=== PATIENT | female | born 1985 | race Caucasian/White ===

== ENCOUNTER 2021-05-21 18:59 | Emergency (ER) | payer OTHER, SELFPAY ==
--- NOTE | ~2021-05-21 | XR_ITS ---
EXAMINATION: XR foot RT 2V EXAM DATE: 05/21/2021 20:53 INDICATION: Pain X 3 Weeks, Fall On Ice, Swelling/Bruising To Lat Side. TECHNIQUE: Right foot dorsoplantar, lateral and oblique projections obtained and reviewed. There is no prior study for comparison. FINDINGS: Right metatarsal bones unremarkable. Small inferior calcaneal spur. There are no acute fr actures or dislocations identified. There is no subcutaneous gas. The soft tissue is unremarkable. There are no radiopaque foreign bodies. IMPRESSION: No acute osseous findings. Reviewed, dictated and finalized at location . [facility] ADMINISTRATOR IMPRESSION: No acute osseous findings.
[2021-05-21 19:03] VITALS: BP 207/108; PULSE 76; RESP 18; TEMP 36.1; O2SAT 100
[2021-05-21 20:18] VITALS: BP 194/112; PULSE 84; RESP 16; O2SAT 97
--- NOTE | 2021-05-21 20:37 | ED.LOWEXIN ---
HPI - Extremity Injury (Lower) General Chief Complaint: Extremity Injury, Lower Stated Complaint: right foot Time Seen by Provider: 05/21/21 20:15 History of Present Illness HPI Narrative: Patient presents to the emergency room with complaints of right heel pain for 3 weeks. Patient states that she slipped on the ice and has had pain since. Pain is worse with ambulation. Has noticed some swelling to the medial side of the heel. States is taken [id number] Tylenol and ibuprofen with little improvement in pain. Related Data Home Medications Medication Instructions Recorded Confirmed metoprolol succinate 12.5 mg PO DAILY 05/21/21 Allergies Allergy/AdvReac Type Severity Reaction Status Date / Time grape Allergy Intermediate swelling Verified 05/21/21 20:16 Review of Systems Review of Systems: CONSTITUTIONAL: Denies fever, chills, or sweats. EYES: Denies visual changes, redness, or discharge. ENT: Denies rhinorrhea, congestion, sore throat, or otalgia. CARDIOVASCULAR: Denies chest pain, palpitations, or edema. RESPIRATORY: Denies cough or dyspnea. GASTROINTESTINAL: Denies abdominal pain, nausea, vomiting, or diarrhea. GENITOURINARY: Denies dysuria or hematuria. SKIN: Denies rash or itching. MUSCULOSKELETAL: Denies back pain, joint pain, or myalgia. Right foot pain per HPI NEUROLOGIC: Denies headache, numbness, dizziness, or weakness. PSYCHIATRIC: Denies anxiety or depression. [facility] Past Medical History Medical History (Updated 05/21/21 @ 21:24 by Aaron Lantigua, ADRIA) Hypertension Exam Narrative: GENERAL: Well-appearing, well-nourished, and in no acute distress. HEAD: Normocephalic, atraumatic. EYES: PERRLA and EOMI. ENT: Nares clear, no rhinorrhea or epistaxis. Mucous membranes moist. Oropharynx without tonsillar hypertrophy exudate or other lesions. Bilateral TMs pearly dominguez nonbulging NECK: Supple. No adenopathy or masses. No carotid bruits or JVD CHEST: Clear to auscultation. No respiratory distress. No wheezes rales or rhonchi HEART: Regular rate and rhythm. No murmur heard. Normal peripheral pulses. ABDOMEN: Soft, nontender, nondistended, normal active bowel sounds. EXTREMITIES: Normal range of motion. No edema. Right foot: +TTP with STS to medial surface of anterior heel over the proximal plantar fascia; No bony abnormality SKIN: Warm, dry, no rash. NEURO: No focal deficits. Alert and oriented x3. PSYCH: Normal mood and affect. Course Course Emergency Course: 36-year-old female presented the emergency room with complaints of right heel pain for 3 to 4 weeks status post fall patient states pain has not been improving with [id number] medications. Patient has been hypertensive for ER stay. Plain films of the right ankle right heel demonstrated no acute findings. Vital Signs Vital signs: Vital Signs Temperature 36.1 C L 05/21/21 19:03 Pulse Rate 76 05/21/21 19:03 Respiratory Rate 18 05/21/21 19:03 Blood Pressure 207/108 H 05/21/21 19:03 Pulse Oximetry 100 05/21/21 19:03 Temperature 36.1 C L 05/21/21 19:03 Pulse Rate 84 05/21/21 20:18 Respiratory Rate 16 05/21/21 20:18 Blood Pressure 194/112 H 05/21/21 20:18 Pulse Oximetry 97 05/21/21 20:18 MDM - Extremity Injury (Lower) MDM Narrative Medical decision making narrative: Given patient has tenderness and soft tissue swelling to the medial surface of the right heel for 3 to 4 weeks status post injury will discharge patient with posterior tibial tendinitis. Recommend patient use an Chevy bandage and/or walking boot. Will send patient home with prescription for anti-inflammatories. Patient is demonstrated multiple high blood pressure readings during her ER stay. Given 0.1 of clonidine. Discussed with patient is to follow-up with PCP next week due to her high blood pressure. Discharge Plan Discharge Clinical Impression: Right tibialis tendonitis Hypertension Qualifiers: Hypertension type: primary hyp
[2021-05-21] MEDS: cloNIDine HCL 0.1 MG TABLET PO (21:20)
== END 2021-05-21 21:57 | disposition home or self-care (01) ==
PROVIDERS: Emergency Provider Nurse Practitioner Family; PCP Family Medicine
DX: M76.821 Posterior tibial tendinitis, right leg (principal); I10 Essential (primary) hypertension; W00.0XXA Fall on same level due to ice and snow, initial encounter
CPT/HCPCS: 73620; 99283; A9270

== ENCOUNTER 2023-10-21 22:06 | Emergency (ER) | payer OTHER, SELFPAY ==
[2023-10-21 22:10] VITALS: BP 163/106; PULSE 82; RESP 18; TEMP 36.9; O2SAT 100
[2023-10-22] MEDS: AMOXICILLIN/CLAVULANATE K 875-125 MG TAB 1 TABLET PO (00:14)
[2023-10-22] MEDS: HYDROcodone/acetaminophen (*CRX) 5-325 MG TABLET 2 TAB PO (00:14)
--- NOTE | 2023-10-22 00:31 | ED.GENADULT ---
HPI - General Adult General Chief complaint: Dental/Oral Stated complaint: abcess tooth Time Seen by Provider: 10/21/23 23:59 History of Present Illness HPI narrative: This is a 38-year-old female presenting for dental pain. Patient has a large cavity in the bottom right molars. She has now developed some swelling in her jaw. Patient has made appointment to see dentist was not for 3 weeks. Related Data Home Medications Medication Instructions Recorded Confirmed metoprolol succinate 25 mg 12.5 mg PO DAILY 05/21/21 tablet,extended release 24 hr Allergies Allergy/AdvReac Type Severity Reaction Status Date / Time grape Allergy Intermediate swelling Verified 10/21/23 22:12 [facility] Past Medical History Medical History Hypertension Exam Narrative: APPEARANCE: No apparent distress. Head: Patient has a cracked tooth in the bottom right molar. Small area of fluctuance at the base of the tooth. EYES: EOMI, NOSE: Atraumatic NECK: Trachea midline RESPIRATORY: No increased rate of breathing CARDIOVASCULAR: RRR, ABDOMINAL: Non-distended MUSCULOSKELETAl: No obvious deformities NEURO: Alert. Moving 4/4 extremities SKIN:: Warm, dry. Normal color PSYCHIATRIC: Normal affect Course Vital Signs Vital signs: Vital Signs Temperature 98.4 F 10/21/23 22:10 Pulse Rate 82 10/21/23 22:10 Respiratory Rate 18 10/21/23 22:10 Blood Pressure 163/106 H 10/21/23 22:10 Pulse Oximetry 100 10/21/23 22:10 Oxygen Delivery Room Air 10/21/23 22:10 Temperature 98.4 F 10/21/23 22:10 Pulse Rate 82 10/21/23 22:10 Respiratory Rate 18 10/21/23 22:10 Blood Pressure 163/106 H 10/21/23 22:10 Pulse Oximetry 100 10/21/23 22:10 Oxygen Delivery Room Air 10/21/23 22:10 Medical Decision Making [facility] Narrative Medical decision making narrative: -Course: 38-year-old female presenting with dental pain. Possibly a small abscess at the base of her bottom right molar. A incision drainage was performed without significant purulence. Patient discharged on antibiotics and given dental follow-up. Given return precautions -DDX includes but is not limited to: Toothache, periapical abscess -Procedures: inferior alveolar nerve block performed with 3 cc of .25% bupivacaine, incision and drainage of a right sided inés-apical abscess The abscess was drained by an 11 blade stab incision. 1 cc blood expressed -Interventions: Augmentin, Jet 5 mg x 2 -Shared decision making / Disposition: Discharge -RX Augmentin, Motrin, Tylenol Vital Signs Vital Signs: Vital Signs Temperature 98.4 F 10/21/23 22:10 Pulse Rate 82 10/21/23 22:10 Respiratory Rate 18 10/21/23 22:10 Blood Pressure 163/106 H 10/21/23 22:10 Pulse Oximetry 100 10/21/23 22:10 Oxygen Delivery Room Air 10/21/23 22:10 Temperature 98.4 F 10/21/23 22:10 Pulse Rate 82 10/21/23 22:10 Respiratory Rate 18 10/21/23 22:10 Blood Pressure 163/106 H 10/21/23 22:10 Pulse Oximetry 100 10/21/23 22:10 Oxygen Delivery Room Air 10/21/23 22:10 Discharge Plan Discharge Clinical Impression: Dental abscess Patient Disposition: Home, Self-Care Condition: Stable Instructions: Antibiotic Form, Dental Abscess (ED) Additional Instructions: Please take the antibiotics as instructed. Use Motrin Tylenol for pain control. Please follow-up with a dentist as soon as possible. If you feel that the abscess is growing or you develop shortness of breath or difficulty swallowing secretions please report to a hospital immediately. Prescriptions: New ibuprofen 800 mg tablet 800 mg PO TID PRN (Reason: pain) 7 Days Qty: 21 0RF acetaminophen 500 mg tablet 1,000 mg PO TID PRN (Reason: bridget) 7 Days Qty: 42 0RF amoxicillin-pot clavulanate 875-125 mg tablet 1 tablet PO Q12H Qty: 20 0RF No Action metoprolol succinate 25 mg Tablet Extended Release 2
[2023-10-22] MEDS: BUPivacaine HCL 0.25% PF 30 ML VIAL INFILTRATE (00:33)
--- NOTE | 2023-10-22 00:34 | PC.NURSE ---
erp zych at bedside to drain abscess. pt tolerated well, no distress noted.
[2023-10-22 00:48] VITALS: BP 114/74; PULSE 72; RESP 17; O2SAT 96
== END 2023-10-22 00:52 | disposition home or self-care (01) ==
PROVIDERS: Emergency Provider Emergency Medicine
DX: K04.7 Periapical abscess without sinus (principal); I10 Essential (primary) hypertension; Z79.899 Other long term (current) drug therapy
CPT/HCPCS: 41800; 99283; A9270

== ENCOUNTER 2025-01-30 10:43 | Emergency (ER) | payer OTHER, SELFPAY ==
--- NOTE | ~2025-01-30 | US_ITS ---
EXAM: US OB <=14 wk fetus w TV 01/30/2025 14:06 CDT HISTORY: with abdominal pain. Low beta hCG of [address] and previous LMP from September COMPARISON: None GENERAL: The endometrium is mildly thickened with a maximum dimension of 15 mm. There is a mass in the posterior uterus with maximum dimension of 12 mm which is likely a fibroid. There is an anterior mass with a maximum dimension of 11 mm which is likely an additional fibroid. There is minimal fluid in the endometrial cavity. There is a tiny fluid collection in the endometrium. It has a maximum dimension of 4 mm. The IUD is seen in the cervix, but not in the endometrial cavity of the uterus. MATERNAL PELVIS Right ovary: There is a large simple cyst with a maximum dimension of 5.7 cm. Left ovary: Normal. Cul-de-sac: No free fluid. IMPRESSION: 1. The IUD has been displaced. 2. There is a tiny fluid collection in the endometrial cavity with thick mild thickening of the endometrium. This representing an early gestational sac cannot be excluded. Follow-up with serial beta-hCGs and pelvic ultrasound if necessary. 3. Sizable ovarian cyst on the right as described. Reviewed, dictated and finalized at location A. IMPRESSION: 1. The IUD has been displaced. 2. There is a tiny fluid collection in the endometrial cavity with thick mild t hickening of the endometrium. This representing an early gestational sac cannot be excluded. Follow-up with serial beta-hCGs and pelvic ultrasound if necessar y. 3. Sizable ovarian cyst on the right as described.
[2025-01-30 10:53] VITALS: BP 150/97; PULSE 105; RESP 18; TEMP 36.6; O2SAT 99
--- OUTSIDE RECORDS SUMMARY | 2025-01-30 11:48 | XMS_ITS | Data Portability ---
Author Organization [facility] Address [address] [place] [address] Assessment Encounter Date Assessment Date Assessment LastModified by Organization Details LastModified Time 03/29/2023 03/29/2023 Annual gynecological exam performed. Patient will come back in a year unless there are new symptoms. Not available 03/29/2023 16:23:40 Plan of Treatment Reminders Order Date Submit Date Provider Last Modified By Organization Details Last Modified Time Details Appointments None recorded. Lab None recorded. Referral primary care provider referral 2022 023 [email or web address] Mesha Bauer DATA SCIENCE [employer]OT MANAGER, [address] [facility] , [address], [address], 13:58:00 Procedures None recorded. Surgeries None recorded. Imaging None recorded. Medication Orders None recorded. Patient TargetsNo targets recorded. Patient InstructionsNo instructions recorded. Reason for Referral Primary Care Provider Referr al for Hypertensive disorder Referring Physician: Meli Penny, COOK SHORT ORDER, Encounter Date: 03/29/2023 Results Created Date Observation Date Name Description Value Unit Range Abnormal Flag Note LastModifiedBy Organization Detail LastModifiedTime 03/29/2003/29/2023 IMAGE GUIDE D PAP AND HPV REGAR DLESS image guided Pap, HPV regardless of Pap result SEE RESULT S BELOW CASE REPOR T: Cytol ogy Gynec ologi conrado Repor t Case: [id number] Autho an inman Provi nathalie: Gio Fernandez Colle cted: 03/29 1707 DATA SCIENCE AND IOT MANAGER Order ing Locat ion: [place] Patho log[facility] Recei zara: 03/30 0952 First Scree n: Patti Triplett ret, CT Rescr een: Meggan moralez, Netta zamarripa, CT Speci men: Scree sampson Pap - Image d, Cervi x STATE MENT OF ADEQU ACY: Satis facto ry for evalu ation Trans forma tion zone compo nent prese nt FINAL DIAGN OSIS: Negat solis for Intra epith elial Lesio n or Migel ramirez (NIL) . Elect enedina taylor asif d by Meggan moralez, Netta zamarripa, CT on 03/31 at 8:58 PM ----- ----- ----- ----- ----- ----- ----- ----- ----- ----- ----- ----- ----- ----- ----- ----- ----- ---- HPV RESUL TS: HPV mRNA E6/E7 : No HPV mRNA Detec iron NOTE: This high risk HPV mRNA assay detec ts fourt een high- risk HPV types (16, 18, 31, 33, 35, 39, 45, 51, 52, 56, 58, 59, 66, 68) witho ut diffe renti ation . COMME NT: This speci men was revie wed by a Cytot echno logis t and/o r Patho logis t (as indic ated in this repor t) after evalu ation using the Thinp rep Imagi ng Syste m. CLINI CONRADO INFOR MATIO N: Menst rual Statu s: LMP (if appli cable ): Clini conrado Histo ry/Pr eviou s Pap: Type of Neopl sanchez (if appli cable ): Signi fican t Clini conrado Findi ngs: Other Histo ry: Hormo em (if appli cable ): PAP EDUCA MOHAMUD L NOTE: The Pap Test is a scree sampson test with an inher ent false negat solis rate. Liqui d-bas ed sampl ing may decre ase, but will not elimi gricelda, false negat solis resul ts. A negat solis resul t does not precl ude the prese nce and/o r devel opmen t of disea se, since the prese nce of abnor mal cells in the sampl e depen ds on the locat ion of the lesio n and sampl ing techn ique. [place] nued regul ar scree sampson is the best metho d of cance r preve ntion . If repor iron cytol ogic findi ng do not corre late with physi conrado and/o r histo rical findi ngs, furth er inves tigat ion is recom chayito d, as clini radha petersen nted. Not Available [facility] (Lab) [address], [place], [address], 03/31/2023 22:01:42 03/29/20 23 03/29/2023 TRICH OMONA S VAGIN BENNY (RRNA ) trichomonas vaginalis ribosomal RNA (rrna) Negati ve negati ve Not Available [facility] (Lab) [address], [place], [address], 03/31/2023 22:01:43 03/29/20 23 03/29/2023 CT/GC (ERIC) , THINP REP VIAL chlamydia trachomatis, PCR Negati ve negati ve Not Available [facility] (Lab) [address] [place], [address], 03/31/2023 22:01:43 03/29/20 23 03/29/2023 CT/GC (ERIC) , THINP REP VIAL neisseria gonorrhoeae, PCR Negati ve negati ve Not Available [facility] (Lab) [address] [place], [address], 03/31/2023 22:01:43 Result Notes None recorded. Procedures Surgical History Date Name Laterality Status Provider Name and Address Organization Details Recorded Time Laparoscopy completed Lisa Murcia [facility] 03/29/2023 16:24:24 Imaging Results None recorded. Procedure Notes None recorded. Medical Equipment None Reported. Allergies No known drug allergies Medications Name Sig Start Date Stop Date Status Note LastModified by Organization Details LastModified Time lisinopril 10 mg tablet TAKE 1 TABLET BY MOUTH EVERY DAY DIRECTED active Not Available Not Available No t Available metoprolol succinate ER 25 mg tablet,exten ded release 24 hr TAKE 1 TABLET BY MOUTH EVERY DAY active Not Available Not Available No t Available Vitals Date Recorded Body weight Body mass index (BMI) Body height Systolic And Diastolic Provider Name and Address Organization Details Last Updated DateTime 03/29/2023 320079.86 g 48.1 kg/m2 162.56 cm 164/110 mm[Hg] Lisa Navarro [facility] 03/29/2023 16:29:24 Social History Question Answer Notes LastModified by Organizat ion Details LastModified Time Tobacco Smoking Status Never Smoker Lisawatson Navarro [facility] 03/29/2023 16:26:22 Are You Blind Or Do You Have Difficulty Seeing? No Information n ot available 03/29/2023 What Is Your Level Of Caffeine Consumption? Heavy Information not available 03/29/2023 How Much Tobacco Do You Chew? None Information not available 03/29/2023 In The 14 Days Before Symptom Onset, Have You Had Close Contact With A Laboratory-confirm ed COVID-19 While That Case Was Ill? No Information n ot available 03/29/2023 In The 14 Days Before Symptom Onset, Have You Had Close Contact With A Person Who Is Under Investigation For COVID-19 While That Person Was Ill? No Information not available 03/29/2023 Have You Been To An Area Known To Be High Risk For COVID-19? No Information not available 03/29/2023 Are You Deaf Or Do You Have Serious Difficulty Hearing? No Information not available 03/29/2023 What Is The Highest Grade Or Level Of School You Have Completed Or The Highest Degree You Have Received? [id number] Information not available 03/29/2023 Are There Any Guns Present In Your Home? No Information not available 03/29/2023 Do You Use Protection During Sex? No Information not available 03/29/2023 Do You Use Your Seat Belt Or Car Seat Routinely? Yes Information not available 03/29/2023 Do You Have Smoke And Carbon Monoxide Detectors In Your Home? Yes Information not available 03/29/2023 How Much Tobacco Do You Smoke? No Information not available 03/29/2023 Do You Use Sunscreen Routinely? No Information not available 03/29/2023 Have You Used IV Drugs? No Information not available 03/29/2023 Do You Have Difficulty Walking Or Climbing Stairs? No Information not available 03/29/2023 Sex: Unknown Functional Status Question Answer Note LastModified by Organizat ion Details LastModified Time Do you use any illicit or recreational drugs? No Information not available 03/29/2023 What is your level of alcohol consumption? Occasional Information not available 03/29/2023 Are you able to walk independently without assistance or assistive devices? YESWOREST Information not available 03/29/2023 Are you able to care for yourself independently? 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 No Information not available 03/29/2023 What is your exercise level? Occasional Information not available 03/29/2023 Mental Status Question Answer Note LastModified by Organization D etails LastModified Time Do you feel stressed (tense, restless, nervous, or anxious, or unable to sleep at night)? [id number] Information not available 03/29/2023 Family History Relationship Description Onset Age of this Age Resolved Age Notes LastModified by Organization Details LastModified Time Mother Asthma Not available 16:24:11 Daughter Asthma Not available 03/29/2023 16:24:11 Father Asthma Not available 16:24:11 Father Heart disease Not available 2022 16:24:11 Medical History Condition Response Headaches Y Hypertension Y Gynecological History Statement/Question Response Abnormal Pap N Flow Moderate Date of LMP 03/15/2023 On BCP's at Conception? N N Was last menstrual period normal Y STIs/STDs N HPV Vaccine Y Duration of Flow (days) 3 Current Control Method IUD Age at First Child 18 Date of control 03/12/2016 Sexually Active? Y IUD Menses Monthly N Age of first menstrual cycle 14 Date of Last Pap Smear Sexual Problems? N Desired Control Method IUD LMP Definite N Obstetrics History GPAL:G 4 P 2 2 0 4 Type Value Full Term 2 Premature 2 Living 4 Total 4 Past Encounters Encounter ID Performer Location Encounter Start Date Encounter Closed Date Diagnosis/Indication Diagnosis SNOMED-CT Code Diagnosis ICD10 Code Diagnosis IMO Codes Diagnosis Note [id number] Meli Penny , [facility] [address] [address] 03/29/2023 16:20:41 03/29/2023 16:57:18 Gynecologic examination 77099773 Z01.419 Take Calcium with Vitamin D 1200mg daily if not receiving in daily diet. It is strongly advised to have an annual flu shot and up can obtain at most pharmacies . If you have not had a TDap shot in the last 10 years you should obtain one as well. Discussed with patient & provided with informatio n regarding Gardisil vaccine to prevent the 4 strains for HPV that cause cervical cancer if under age 26. Encourage safe sexual practices, to use condoms and limit partners if not already in a monogamous relationsh ip. Do monthly self breast exams. Have mammogram yearly or every other year depending on family history. BRCA testing is now available for patients with strong genetic history of female cancer. If interested contact the office. Engage in daily exercise of low impact aerobic exercise 45-60 minutes 4-5 times weekly. Avoid tobacco and illicit drugs as well as using moderation with alcohol intake less than 1-2 8 oz beverages daily. This lifestyle behavior pattern will lead to less health conditions and longer life span. If BMI greater than 25 weight watchers or dietary consult advised. Patient received above instructio ns, and questions have been answered. If you have any questions please call or respond to this email. Patient was made aware of the patient portal and may obtain a paper copy of today's plan if desired. Pap/hpv sentSTD Screen sentGeneti c Screen discussedC olon Screen naDexa Screen naRoutine Labs PCP will order Hypertensive disorder 38 [id number] I10 ED precaution s reviewed.C ontinue taking BP medication s until get into see PCP.Two options given that take her insurance. Risks of HTN and organ perfusion/ failure acute/research chemist cass.Unders tanding verbalized .Agreeable to plan of care. Contracept ion care management [id number] Z30.9 Mirena IUD expires middle of April 2023.Appoi ntment made to removal/re insertion same day. Health Concerns Section Related Observation LastModified by Organization Detai ls LastModified Time None Recorded Concern Status LastModified by Organization Details LastModified Time None Recorded Advance Directives Directive None Recorded Payers Insurance Date Sequence Insurance Name Policy Number Policy David Covered Member ID David Member ID Guarantor Name 04/03/2023 1 [employer] [facility] (MEDICAID HMO) [id number] Erinn Miramontes [id number] Erinn Miramontes 03/15/2023 1 [facility] - DOS ON OR AFTER 20 (MEDICAID REPLACEMENT - HMO) Erinn Miramontes [id number] Erinn Miramontes Notes Date Note Type Note Provider Name and Address Organization Details Recorded Time 3 text/html Annual GYNReported by PatientGenitourinary symptomsFor menstrual cycle, patient reportsnormal menses (light on iud mirena). For urinary symptoms, patient reportsno hematuriaandno incontinence. For vulva, patient reportsno genital lesion. For vagina, patient reportsnormal vaginal discharge.Breast symptomsFor breast, patient reportsno breast pain,no breast lump, andno nipple discharge.ContraceptionFo r current contraception, patient reportssatisfied with current contraceptionandintrauter ine device (iud).Endocrine symptomsFor sexual complaints, patient reportsno sexual complaints,no pain during intercourse, andnormal libido. For menopausal symptoms, patient reportsno menopausal symptomsandnormal vaginal lubrication.Psychological symptomsFor psychological symptoms, patient reportsno depression,no anxiety, andno pmdd.Preventative measuresFor preventive measures, patient reportsencourage self breast examination,encourage regular exercise,encourage no tobacco use,encourage regular mammograms starting age 40, andfollowed with yearly pap smears. Meli Penny, [facility] [address], [place], [address], [facility] 03/29/2023 16:54:56 OBGyn Episode Ob Episode Information Episode Created Date Number of Fetuses Patient Bloodtype Patient rh Status Prepregnancy Weight lbs Domestic Partner Domestic Partner Phone Father Name Jewel Bearing Broacher Status 03/29/20 23 1 CLOSED Fetus Data First Name Last Name Admitted to NICU Weight (g) Sex Living Outcome Pediatric Complications Fetus ID Race Codes Race Delivery Type 3883.65 [id number] F Full Term [id number] Vaginal Delivery Yaw Calculation Initial Yaw Date Initial Exam Date Initial Exam Provider Initial Ultrasound Date Last Menstrual Period Date Ultra Sound Weeks Gestation 0 Eighteen To Twenty Week Yaw Update Ultra Sound Date Fundal Height At Umbil Quickening Date Ultra Sound Latest Weeks Gestation Final Yaw Confirmed By Final Yaw Confirmed Date Final Yaw Date Ultra Sound Latest Days Gestation 0 0 Menstrual History Last Menstrual Date Menses Monthly On Bcp Conception Prior Menses Frequency Hcg Plus Date Menarche Onset Age Delivery Information Delivery Date Delivery Type Labor Anesthesia Weeks Gestation Incision Type Labor Labor Length Hrs Delivered By Post Complications Tubal Sterilization Discharge Date Comments 5 Discharge Information Feeding Method Contraceptive Method Maternal HG B and HCT Levels Ob Episode Information Episode Created Date Number of Fetuses Patient Bloodtype Patient rh Status Prepregnancy Weight lbs Domestic Partner Domestic Partner Phone Father Name Jewel Bearing Broacher Status 03/29/20 23 1 CLOSED Fetus Data First Name Last Name Admitted to NICU Weight (g) Sex Living Outcome Pediatric Complications Fetus ID Race Codes Race Delivery Type 2494.75 6 F Prematur e [id number] Vaginal Delivery Yaw Calculation Initial Yaw Date Initial Exam Date Initial Exam Provider Initial Ultrasound Date Last Menstrual Period Date Ultra Sound Weeks Gestation 0 Eighteen To Twenty Week Ywa Update Ultra Sound Date Fundal Height At Umbil Quickening Date Ultra Sound Latest Weeks Gestation Final Yaw Confirmed By Final Yaw Confirmed Date Final Yaw Date Ultra Sound Latest Days Gestation 0 0 Menstrual History Last Menstrual Date Menses Monthly On Bcp Conception Prior Menses Frequency Hcg Plus Date Menarche Onset Age Delivery Information Delivery Date Delivery Type Labor Anesthesia Weeks Gestation Incision Type Labor Labor Length Hrs Delivered By Post Complications Tubal Sterilization Discharge Date Comments 8 34 Discharge Information Feeding Method Contraceptive Method Maternal HG B and HCT Levels Ob Episode Information Episode Created Date Number of Fetuses Patient Bloodtype Patient rh Status Prepregnancy Weight lbs Domestic Partner Domestic Partner Phone Father Name Jewel Bearing Broacher Status 03/29/20 23 1 CLOSED Fetus Data First Name Last Name Admitted to NICU Weight (g) Sex Living Outcome Pediatric Complications Fetus ID Race Codes Race Delivery Type 2352.78 1704 [place] [id number] Vaginal Delivery Yaw Calculation Initial Yaw Date Initial Exam Date Initial Exam Provider Initial Ultrasound Date Last Menstrual Period Date Ultra Sound Weeks Gestation 0 Eighteen To Twenty Week Yaw Update Ultra Sound Date Fundal Height At Umbil Quickening Date Ultra Sound Latest Weeks Gestation Final Yaw Confirmed By Final Yaw Confirmed Date Final Yaw Date Ultra Sound Latest Days Gestation 0 0 Menstrual History Last Menstrual Date Menses Monthly On Bcp Conception Prior Menses Frequency Hcg Plus Date Menarche Onset Age Delivery Information Delivery Date Delivery Type Labor Anesthesia Weeks Gestation Incision Type Labor Labor Length Hrs Delivered By Post Complications Tubal Sterilization Discharge Date Comments 7 35 Discharge Information Feeding Method Contraceptive Method Maternal HG B and HCT Levels Ob Episode Information Episode Created Date Number of Fetuses Patient Bloodtype Patient rh Status Prepregnancy Weight lbs Domestic Partner Domestic Partner Phone Father Name Jewel Bearing Broacher Status 03/29/20 23 1 CLOSED Fetus Data First Name Last Name Admitted to NICU Weight (g) Sex Living Outcome Pediatric Complications Fetus ID Race Codes Race Delivery Type 3628.73 6 M Full Term [id number] Vaginal Delivery Yaw Calculation Initial Yaw Date Initial Exam Date Initial Exam Provider Initial Ultrasound Date Last Menstrual Period Date Ultra Sound Weeks Gestation 0 Eighteen To Twenty Week Yaw Update Ultra Sound Date Fundal Height At Umbil Quickening Date Ultra Sound Latest Weeks Gestation Final Yaw Confirmed By Final Yaw Confirmed Date Final Yaw Date Ultra Sound Latest Days Gestation 0 0 Menstrual History Last Menstrual Date Menses Monthly On Bcp Conception Prior Menses Frequency Hcg Plus Date Menarche Onset Age Delivery Information Delivery Date Delivery Type Labor Anesthesia Weeks Gestation Incision Type Labor Labor Length Hrs Delivered By Post Complications Tubal Sterilization Discharge Date Comments 4 Discharge Information Feeding Method Contraceptive Method Maternal HG B and HCT Levels
--- OUTSIDE RECORDS SUMMARY | 2025-01-30 11:49 | XMS_ITS | Data Portability ---
Author Organization [place] - [facility], Main Office Address [address] [place] [address] Care Team Providers Care Mangle Press Catcher Name Role Phone IVANA DREAD Primary Care Provider Assessment Encounter Date Assessment Date Assessment LastModified by Organization Details LastModified Time 08/14/2024 08/14/2024 39 yo F with - HTN - VIT D DEFICIENCY - OSMIN (on Cpap) - OBESITY II Annual labs: 08/06/24. Wt: 226(08/14/24) D/w pt about her findings, recent labs & imagines and further plan of care. All meds verified with pt. Meds as directed. Diet and exercise explained in detail. Educated about different options for her. BP diary education given. F/u with Pulmo as per schedule. Cont f/u with Ophtho as per schedule. HM: WWE - 11/24, normal as per pt. Cont f/u with Gyne as per schedule. Mammo - Never. No FH of breast CA. Flu - Pt declined. Tdap - Pt declined. Gardasil - Pt declined. F/u in 1 month. Annual labs in 06/26. Not available 08/14/2024 11:02:33 09/11/2024 09/11/2024 39 yo F with - WT LOSS PROGRAM - HTN - VIT D DEFICIENCY - OSMIN (on Cpap) - OBESITY II Annual labs: 08/06/24. Wt: 226(08/14/24) - 218(09/11/24) D/w pt about her findings, recent labs & imagines and further plan of care. All meds verified with pt. Meds as directed. Diet and exercise explained in detail. Educated about different options for her. BP diary education given. F/u with Pulmo as per schedule. Cont f/u with Ophtho as per schedule. HM: WWE - 11/24, normal as per pt. Cont f/u with Gyne as per schedule. Mammo - Never. No FH of breast CA. Flu - Pt declined. Tdap - Pt declined. Gardasil - Pt declined. F/u in 2 months. Annual labs in 06/26. [email or web address] Not available 09/11/2024 10:19:16 11/11/2024 11/11/2024 39 yo F with - WT LOSS PROGRAM - HTN - VIT D DEFICIENCY - OSMIN (on Cpap) - OBESITY II Annual labs: 08/06/24. Wt: 226(08/14/24) - 218(09/11/24) - 219(11/11/24) D/w pt about her findings, recent labs & imagines and further plan of care. All meds verified with pt. Meds as directed. Diet and exercise explained in detail. Educated about different options for her. BP diary education given. F/u with Pulmo as per schedule. Cont f/u with Ophtho as per schedule. HM: WWE - 11/24, normal as per pt. Cont f/u with Gyne as per schedule. Mammo - Never. No FH of breast CA. Flu - Pt declined. Tdap - Pt declined. Gardasil - Pt declined. F/u in 2 months. Annual labs in 06/26. [email or web address] Not available 11/11/2024 14:57:47 01/21/2025 01/21/2025 40 yo F with - WT LOSS PROGRAM - HTN - VIT D DEFICIENCY - OSMIN (on Cpap) - OBESITY II Annual labs: 08/06/24. Wt: 226(08/14/24) - 218(09/11/24) - 219(11/11/24) - 206(01/21/25) D/w pt about her findings, recent labs & imagines and further plan of care. All meds verified with pt. Meds as directed. Diet and exercise explained in detail. Educated about different options for her. BP diary education given. F/u with Pulmo as per schedule. Cont f/u with Ophtho as per schedule. Wegovy is too costly for pt. HM: WWE - 11/24, normal as per pt. Cont f/u with Gyne as per schedule. Mammo - Never. No FH of breast CA. Flu - Pt declined. Tdap - Pt declined. Gardasil - Pt declined. F/u in 2 months. Annual labs in 06/26. Not available 01/21/2025 10:05:21 Plan of Treatment Reminders Order Date Submit Date Provider Last Modified By Organization Details Last Modified Time Details Appointments Any 15 2024 08:00A M Dread Sawyer MD Not available Not available Not available Lab None recorded. Referral None recorded. Procedures None recorded. Surgeries None recorded. Imaging None recorded. Medication Orders phentermi ne 30 mg capsule 2024 [email or web address] [facility] #[id number], [address], [id number], 01/21/2025 10:01:40 Zepbound 2.5 mg/0.5 mL subcutane ous pen injector 2024 [facility] #05759, [address], [id number], 01/21/2025 10:02:37 amlodipin e 5 mg tablet 2024 [facility], [address], [id number], 01/21/2025 10:01:03 metoprolo l succinate ER 25 mg tablet,ex tended release 24 hr 2024 [facility]37332, [address], [id number], 01/21/2025 10:01:05 ergocalci ferol (vitamin D2) 1,250 mcg (50,000 unit) capsule 2024 [facility] #50043, [address], [id number], 01/21/2025 10:01:02 phentermi ne 30 mg capsule 2024 025 [facility] #26865, [address] [facility] [address] [facility], [place], [place], [id number], 11/11/2024 15:00:16 Wegovy 0.25 mg/0.5 mL subcutane ous pen injector 2024 025 2 [facility] #50367, [address] [address], [place], [place], [id number], 11/13/2024 09:32:14 amlodipin e 5 mg tablet 2024 [facility] #10149, [address], [id number], 11/11/2024 15:00:12 metoprolo l succinate ER 25 mg tablet,ex tended release 24 hr 2024 025 [facility] #79475, [address], [id number], 11/11/2024 15:00:13 ergocalci ferol (vitamin D2) 1,250 mcg (50,000 unit) capsule 2024 025 [facility] #30336, [address] [facility] [address] [facility], [place], [place], [id number], 11/11/2024 15:00:13 phentermi ne 15 mg capsule 2024 025 [email or web address] [facility] #33165, [address], [id number], 11/11/2024 15:03:00 amlodipin e 5 mg tablet 2024 025 [facility] #53782, [address] [facility], [place], [place], [id number], 09/11/2024 10:17:26 metoprolo l succinate ER 25 mg tablet,ex tended release 24 hr [email or web address] [facility] [address] [facility] #46945, [address] [facility], [place], [place], [id number], 09/11/2024 10:17:53 ergocalci ferol (vitamin D2) 1,250 mcg (50,000 unit) capsule 2024 025 [facility] #36336, [address] [facility] [address] [place] [address], [id number], 09/11/2024 10:17:25 phentermi ne 15 mg capsule 2024 025 [facility] #79185, [address] [place] [address], [id number], 11/11/2024 15:03:00 amlodipin e 5 mg tablet 2024 025 [facility] #87851, [address] [place] [address], [id number], 08/14/2024 11:01:25 metoprolo l succinate ER 25 mg tablet,ex tended release 24 hr 2024 025 [facility] #71014, [address] [place] [address], [id number], 08/14/2024 11:01:25 ergocalci ferol (vitamin D2) 1,250 mcg (50,000 unit) capsule 2024 025 [facility] #56270, [address] [place] [address], [id number], 08/14/2024 11:01:25 Patient TargetsNo targets recorded. Patient Instructions Encounter Date Encounter Id Patient Instructions Last Modified By Organization Details Last Modified Time 08/14/2024 [id number] When You Want to Lose Weight: Care Instructions [email or web address] Not available 08/14/2024 11:01:18 09/11/2024 [id number] When You Want to Lose Weight: Care Instructions [email or web address] Not available 09/11/2024 10:17:19 11/11/2024 [id number] When You Want to Lose Weight: Care Instructions Not available 11/11/2024 15:00:01 01/21/2025 [id number] When You Want to Lose Weight: Care Instructions [email or web address] Not available 01/21/2025 10:00:54 Reason for Referral None Reported. Results Created Date Observation Date Name Description Value Unit Range Abnormal Flag Note LastModifiedBy Organization Detail LastModifiedTime 08/07/1908/06/2024 CBC/C OMPLE TE BLD COUNT W/DIF F white blood cells 7.1 x10'3 /uL 4.2-10 .8 Not Available [facility] (Lab) [address] [place], [address], 08/06/2024 19:12:02 08/07/19 25 08/06/2024 CBC/C OMPLE TE BLD COUNT W/DIF F red blood cells 4.34 x10'6 /uL 3.80-5 .20 Not Available [facility] (Lab) [address] [place], [address], 08/06/2024 19:12:02 08/07/19 25 08/06/2024 CBC/C OMPLE TE BLD COUNT W/DIF F hemoglobin 13.1 g/dL 12.0-1 5.6 Not Available [facility] (Lab) [address] [place], [address], 08/06/2024 19:12:02 08/07/19 25 08/06/2024 CBC/C OMPLE TE BLD COUNT W/DIF F hematocrit 40.0 % 35.7-4 5.7 Not Available [facility] (Lab) [address] [place], [address], 08/06/2024 19:12:02 08/07/19 25 08/06/2024 CBC/C OMPLE TE BLD COUNT W/DIF F mean red cell volume 92.2 fL 82.0-9 9.0 Not Available [facility] (Lab) [address] [place], [address], 08/06/2024 19:12:02 08/07/19 25 08/06/2024 CBC/C OMPLE TE BLD COUNT W/DIF F mean red cell hemoglobin 30.2 pg 27.0-3 3.0 Not Available [facility] (Lab) [address] [place], [address], 08/06/2024 19:12:02 08/07/19 25 08/06/2024 CBC/C OMPLE TE BLD COUNT W/DIF F mean RBC HGB concentratio n 32.8 g/dL 31.0-3 6.0 Not Available [facility] (Lab) [address] [place], [address], 08/06/2024 19:12:02 08/07/1908/06/2024 CBC/C OMPLE TE BLD COUNT W/DIF F red cell distribution width 13.0 % 11.8-1 5.5 Not Available [facility] (Lab) [address] [place], [address], 08/06/2024 19:12:02 08/07/1908/06/2024 CBC/C OMPLE TE BLD COUNT W/DIF F platelets 314 x10'3 /uL 150-40 0 Not Available [facility] (Lab) [address] [facility] [place], [address], 08/06/2024 19:12:02 08/07/19 25 08/06/2024 CBC/C OMPLE TE BLD COUNT W/DIF F mean platelet volume 9.3 fL 9.0-12 .4 Not Available [facility] (Lab) [address] [place], [address], 08/06/2024 19:12:02 08/07/1908/06/2024 CBC/C OMPLE TE BLD COUNT W/DIF F neutrophils 67.4 % 39.0-7 2.0 Not Available [facility] (Lab) [address] [place], [address], 08/06/2024 19:12:02 08/07/1908/06/2024 CBC/C OMPLE TE BLD COUNT W/DIF F lymphocytes 23.3 % 16.0-4 7.0 Not Available [facility] (Lab) [address] [place], [address], 08/06/2024 19:12:02 08/07/1908/06/2024 CBC/C OMPLE TE BLD COUNT W/DIF F monocytes 8.3 % 5.0-12 .0 Not Available [facility] (Lab) [address] [place], [address], 08/06/2024 19:12:02 08/07/1908/06/2024 CBC/C OMPLE TE BLD COUNT W/DIF F eosinophils 0.3 % 1.0-7. 0 low Not Available [facility] (Lab) [address] [place], [address], 08/06/2024 19:12:02 08/07/1908/06/2024 CBC/C OMPLE TE BLD COUNT W/DIF F basophils 0.4 % 0.0-2. 0 Not Available [facility] (Lab) [address] [place], [address], 08/06/2024 19:12:02 08/07/19 25 08/06/2024 CBC/C OMPLE TE BLD COUNT W/DIF F immature granulocytes 0.3 % 0.00-0 .50 Not Available [facility] (Lab) [address] [place], [address], 08/06/2024 19:12:02 08/07/1908/06/2024 CBC/C OMPLE TE BLD COUNT W/DIF F neutrophils, absolute count 4.78 x10'3 /uL 1.5-8. 0 Not Available [facility] (Lab) [address] [place], [address], 08/06/2024 19:12:02 08/07/1908/06/2024 CBC/C OMPLE TE BLD COUNT W/DIF F lymphocytes, absolute count 1.65 x10'3 /uL 1.07-3 .43 Not Available [facility] (Lab) [address] [place], [address], 08/06/2024 19:12:02 08/07/1908/06/2024 CBC/C OMPLE TE BLD COUNT W/DIF F monocytes, absolute count 0.59 x10'3 /uL 0.29-0 .99 Not Available [facility] (Lab) [address] [place], [address], 08/06/2024 19:12:02 08/07/1908/06/2024 CBC/C OMPLE TE BLD COUNT W/DIF F eosinophils, absolute count 0.02 x10'3 /uL 0.02-0 .53 Not Available [facility] (Lab) [address] [place], [address], 08/06/2024 19:12:02 08/07/1908/06/2024 CBC/C OMPLE TE BLD COUNT W/DIF F basophils, absolute count 0.03 x10'3 /uL 0.01-0 .08 Not Available [facility] (Lab) [address] [place], [address], 08/06/2024 19:12:02 08/07/1908/06/2024 CBC/C OMPLE TE BLD COUNT W/DIF F immature granulocytes ,absolute 0.02 x10'3 /uL 0.00-0 .05 Not Available [facility] (Lab) [address] [place], [address], 08/06/2024 19:12:02 08/07/19 25 08/06/2024 CBC/C OMPLE TE BLD COUNT W/DIF F nucleated red blood cells 0.0 % -0 Not Available [facility] (Lab) [address] [place], [address], 08/06/2024 19:12:02 08/07/19 25 08/06/2024 CBC/C OMPLE TE BLD COUNT W/DIF F NRBC# 0.00 x10'3 /uL Not Available [facility] (Lab) [address] [place], [address], 08/06/2024 19:12:02 08/07/19 25 08/06/2024 URINA LYSIS COMPL ETE/I RIS W/RFX color LIGHT- YELLOW Not Available [facility] (Lab) [address] [place], [address], 08/06/2024 19:19:12 08/07/19 25 08/06/2024 URINA LYSIS COMPL ETE/I RIS W/RFX appear TURBID abnormal Not Available [facility] (Lab) [address] [place], [address], 08/06/2024 19:19:12 08/07/19 25 08/06/2024 URINA LYSIS COMPL ETE/I RIS W/RFX specific gravity 1.013 1.001- 1.030 Not Available [facility] (Lab) [address] [place], [address], 08/06/2024 19:19:12 08/07/19 25 08/06/2024 URINA LYSIS COMPL ETE/I RIS W/RFX pH 6.5 pH_un its 5.0-9. 0 Not Available [facility] (Lab) [address] [place], [address], 08/06/2024 19:19:12 08/07/19 25 08/06/2024 URINA LYSIS COMPL ETE/I RIS W/RFX leukocytes 75 pili/u L negati ve- abnormal Not Available [facility] (Lab) [address] [place], [address], 08/06/2024 19:19:12 08/07/19 25 08/06/2024 URINA LYSIS COMPL ETE/I RIS W/RFX nitrite NEGATI VE negati ve- Not Available [facility] (Lab) [address] [place], [address], 08/06/2024 19:19:12 08/07/19 25 08/06/2024 URINA LYSIS COMPL ETE/I RIS W/RFX protein NEGATI VE mg/dL negati ve- Not Available [facility] (Lab) [address] [place], [address], 08/06/2024 19:19:12 08/07/19 25 08/06/2024 URINA LYSIS COMPL ETE/I RIS W/RFX glucose NORMAL mg/dL normal - Not Available [facility] (Lab) [address] [place], [address], 08/06/2024 19:19:12 08/07/19 25 08/06/2024 URINA LYSIS COMPL ETE/I RIS W/RFX ketones NEGATI VE mg/dL negati ve- Not Available [facility] (Lab) [address] [place], [address], 08/06/2024 19:19:12 08/07/19 25 08/06/2024 URINA LYSIS COMPL ETE/I RIS W/RFX urobilinogen NORMAL mg/dL normal - Not Available [facility] (Lab) [address] [place], [address], 08/06/2024 19:19:12 08/07/1908/06/2024 URINA LYSIS COMPL ETE/I RIS W/RFX bilirubin NEGATI VE mg/dL negati ve- Not Available [facility] (Lab) [address] [place], [address], 08/06/2024 19:19:12 08/07/19 25 08/06/2024 URINA LYSIS COMPL ETE/I RIS W/RFX blood 0.06 mg/dL negati ve- abnormal Not Available [facility] (Lab) [address] [place], [address], 08/06/2024 19:19:12 08/07/19 25 08/06/2024 URINA LYSIS COMPL ETE/I RIS W/RFX white blood cells 0-8 /i??h pfi?? 0-8 Not Available [facility] (Lab) [address] [place], [address], 08/06/2024 19:19:12 08/07/19 25 08/06/2024 URINA LYSIS COMPL ETE/I RIS W/RFX red blood cells 0-4 /i??h pfi?? 0-4 Not Available [facility] (Lab) [address] [facility] [place], [address], 08/06/2024 19:19:12 08/07/1908/06/2024 URINA LYSIS COMPL ETE/I RIS W/RFX bacteria NONE none seen- Not Available [facility] (Lab) [address] [place], [address], 08/06/2024 19:19:12 08/07/19 25 08/06/2024 URINA LYSIS COMPL ETE/I RIS W/RFX mucous OCCASI ONAL /i??l pfi?? none seen- abnormal Not Available [facility] (Lab) [address] [place], [address], 08/06/2024 19:19:12 08/07/1908/06/2024 URINA LYSIS COMPL ETE/I RIS W/RFX squamous epithelial FEW /i??l pfi?? abnormal Not Available [facility] (Lab) [address] [place], [address], 08/06/2024 19:19:12 08/07/19 25 08/06/2024 LIPID PANEL cholesterol 145 mg/dL 140-19 9 NIH NIKKI NSUS RECOM MENDA TION FOR BEENA STERO L: ADULT CHILD LOW RISK: <200 <170 BORDE RLINE : <200- 239 ----- HIGH RISK: >240 >200 Not Available [facility] (Lab) [address] [place], [address], 08/06/2024 19:38:53 08/07/1908/06/2024 LIPID PANEL triglyceride s 56 mg/dL 0-150 NIH NIKKI NSUS REPOR T RECOM MENDA TION FOR TRIGL YCERI PAOLA: ADULT CHILD LOW RISK: <150 ----- BODER LINE: 150-1 99 ----- HIGH RISK: >200 ----- Not Available [facility] (Lab) [address] [place], [address], 08/06/2024 19:38:53 08/07/19 25 08/06/2024 LIPID PANEL HDL cholesterol 49 mg/dL 40- Not Available [facility] (Lab) [address] [place], [address], 08/06/2024 19:38:53 08/07/1908/06/2024 LIPID PANEL LDL cholesterol, calculated 85 mg/dL 0-130 NIH NIKKI NSUS REPOR T RECOM MENDA TIONS FOR LDL: ADULT CHILD LOW RISK <130 <110 (OPTI MAL LDL) <100 ----- BORDE RLINE : 130-1 59 ----- HIGH RISK: >160 >130 A TRIGL YCERI DE RESUL T >400 INVAL IDATE S THE CALCU LATIO N FOR LDL FRACT IONAT ION - THE LDL RESUL T WILL NOT BE REPOR GAYATRI. Not Available [facility] (Lab) [address] [place], [address], 08/06/2024 19:38:53 08/07/19 25 08/06/2024 COMPR EHENS SENAIT METAB OLIC PANEL sodium 134 mmol/ L 137-14 5 low Not Available [facility] (Lab) [address] [place], [address], 08/06/2024 19:38:56 08/07/19 25 08/06/2024 COMPR EHENS SENAIT METAB OLIC PANEL potassium 4.6 mmol/ L 3.5-5. 1 Not Available [facility] (Lab) [address] [place], [address], 08/06/2024 19:38:56 08/07/19 25 08/06/2024 COMPR EHENS SENAIT METAB OLIC PANEL chloride 103 mmol/ L 98-107 Not Available [facility] (Lab) [address] [place], [address], 08/06/2024 19:38:56 08/07/19 25 08/06/2024 COMPR EHENS SENAIT METAB OLIC PANEL carbon dioxide 26 mmol/ L 22-30 Not Available [facility] (Lab) [address] [place], [address], 08/06/2024 19:38:56 08/07/19 25 08/06/2024 COMPR EHENS SENAIT METAB OLIC PANEL anion gap 9.6 mmol/ L 14-22 low Not Available [facility] (Lab) [address] [place], [address], 08/06/2024 19:38:56 08/07/19 25 08/06/2024 COMPR EHENS SENAIT METAB OLIC PANEL glucose 74 mg/dL 70-99 Not Available [facility] (Lab) [address] [facility] [place], [address], 08/06/2024 19:38:56 08/07/1908/06/2024 COMPR EHENS SENAIT METAB OLIC PANEL BUN 9 mg/dL 8-19 Not Available [facility] (Lab) [address] [place], [address], 08/06/2024 19:38:56 08/07/1908/06/2024 COMPR EHENS SENAIT METAB OLIC PANEL creatinine 0.66 mg/dL 0.66-1 .25 Not Available [facility] (Lab) [address] [place], [address], 08/06/2024 19:38:56 08/07/1908/06/2024 COMPR EHENS SENAIT METAB OLIC PANEL GFR >60 Refer ence Range : Moody ge GFR Healt hy Adult : >60 mL/mi n/1.7 3 m2 Chron ic Kidne y Disea se: 15-60 mL/mi n/1.7 3 m2 Kidne y Failu re: <15/m L/min /1.73 m2 www.n iddk. nih.g ov The MDRD study equat ion has not been valid ated in child timoteo <18 years of age; pregn ant women ; the elder ly >85 years of age; or in some racia l or ethni c subgr oups, such as [facility] nics. Outsi de the valid ated benson eters , estim ated GFR is less accur ate, requi ring clini conrado judgm ent on a case- by-ca se basis . Clini conrado inter preta tion for other races and ages must be made by the clini keo. The MDRD study equat ion has not been valid ated for the evalu ation of serum creat inine relat ed to nutri andree l statu s or medic ation usage . For perso ns <18 years of age, a pedia tric GFR calcu lator is avail able on the [facility] websi te: https ://letty higgins.kid leidy.o rg/pr ofess ional s/kdo qi/gf r_cal culat or Not Available [facility] (Lab) [address] [place], [address], 08/06/2024 19:38:56 08/07/19 25 08/06/2024 COMPR EHENS SENAIT METAB OLIC PANEL alkaline phosphatase 101 U/L 38-126 Not Available [facility] (Lab) [address] [place], [address], 08/06/2024 19:38:56 08/07/19 25 08/06/2024 COMPR EHENS SENAIT METAB OLIC PANEL alanine aminotransfe rase 29 U/L 0-35 Not Available [facility] (Lab) [address] [place], [address], 08/06/2024 19:38:56 08/07/19 25 08/06/2024 COMPR EHENS SENAIT METAB OLIC PANEL aspartate aminotransfe rase 23 U/L 15-37 Not Available [facility] (Lab) [address] [place], [address], 08/06/2024 19:38:56 08/07/19 25 08/06/2024 COMPR EHENS SENAIT METAB OLIC PANEL bilirubin, total 0.60 mg/dL 0.20-1 .30 Not Available [facility] (Lab) [address] [place], [address], 08/06/2024 19:38:56 08/07/19 25 08/06/2024 COMPR EHENS SENAIT METAB OLIC PANEL calcium 10.2 mg/dL 8.4-10 .2 Not Available [facility] (Lab) [address] [place], [address], 08/06/2024 19:38:56 08/07/19 25 08/06/2024 COMPR EHENS SENAIT METAB OLIC PANEL total protein 6.9 g/dL 6.3-8. 2 Not Available [facility] (Lab) [address] [place], [address], 08/06/2024 19:38:56 08/07/19 25 08/06/2024 COMPR EHENS SENAIT METAB OLIC PANEL albumin 4.3 g/dL 3.4-5. 0 Not Available [facility] (Lab) [address] [place], [address], 08/06/2024 19:38:56 08/07/19 25 08/06/2024 COMPR EHENS SENAIT METAB OLIC PANEL globulin 2.6 g/dL 2.6-4. 2 Not Available [facility] (Lab) [address] [place], [address], 08/06/2024 19:38:56 08/07/19 25 08/06/2024 COMPR EHENS SENAIT METAB OLIC PANEL A/G ratio 1.7 ratio 1.0-2. 0 Not Available [facility] (Lab) [address] [place], [address], 08/06/2024 19:38:56 08/07/1908/06/2024 VITAM IN D 25-HY DROXY vd25oh 32.7 NG/mL 30-100 Vitam in D Statu s: Defic ient: <20 ng/mL Insuf ficie nt: 20-29 ng/mL Suffi cient : 30-10 0 ng/mL Not Available [facility] (Lab) [address] [place], [address], 08/06/2024 19:59:54 08/07/1908/06/2024 TSH W/REF JAX FT4 TSH with reflex free T4 0.754 uIU/m L 0.465- 4.680 Not Available [facility] (Lab) [address] [place], [address], 08/06/2024 20:10:16 08/07/19 25 08/06/2024 HEMOG LOBIN A1C HA1C 4.8 % 4.0-6. 0 Diabe dorcas Eveliae sampson Crite mounika: <5.7% Consi stent with absen ce of diabe dorcas 5.7-6 .4% Consi stent with incre ased risk for diabe dorcas (pred iabet es) >OR=6 .5% Consi stent with diabe dorcas REFER ENCE: Diabe dorcas Care 2016, 39(Harvey ppl.1 ):s13 -s22 Not Available [facility] [address] [place], [address], 08/06/2024 20:29:17 Result Notes None recorded. Problems Name Problem SNOMED Code Status Onset Date Resolution Date Notes Provider Name and Address Organization Details Recorded Time Hypertensive disorder 43214076 Active 2018 Not Available [facility] 3 20:59:55 Obesity 472497049 Active 2018 Not Available [facility] 3 20:59:55 Vitamin D deficiency 35121933 Active 2018 Not Available [facility] 3 20:59:54 Obstructive sleep apnea syndrome 96048003 Active 2023 Mahendra Parks MD [address] [facility] [address], [place], [address] , [employer] 4 09:38:47 Notes:Medical History: Early REM onset Obesity with moderate OSAHS, AHI = 16, 08/03/23, on autoCPAP c/o IVRC Hypertension Hepatic hemangiomas PLMD Vit D deficiency Right plantar fasciitis Right calcaneal spur Procedure History: Cholecystectomy 2010 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 Procedures Surgical History Date Name Laterality Status Provider Name and Address Organization Details Recorded Time 04/03/19 24 Date of Last Pap Smear completed Lucrecia Kenney RN [employer] 07/21/2023 10:05:19 04/03/19 14 Gallbladder Surgery completed Not Available [facility] 06/01/2022 20:58:20 Imaging Results None recorded. Procedure Notes None recorded. Medical Equipment None Reported. Allergies Allergen ID Allergen Name Allergen Category Reaction Reaction Severity Criticality Documentation Date Start Date Code Code System Note Provider Name and Address Organization Details Recorded Time 62515 grape flavor food,medi cation swelling severe Not available 06/01/2022 Not Available [facility] 3 21:01:57 Medications Name Sig Start Date Stop Date Status Note LastModified by Organization Details LastModified Time ibuprofen 800 mg tablet TAKE 1 TABLET BY MOUTH THREE TIMES DAILY FOR 7 DAYS NEEDED FOR PAIN 11/05 completed Not Available Not Available Not Available lisinopri l 20 mg tablet TAKE 1 TABLET BY MOUTH EVERY DAY 11/05 completed Not Available Not Available Not Available phentermi ne 15 mg capsule TAKE 1 CAPSULE BY MOUTH EVERY DAY BEFORE BREAKFAS T active Not Available Not Available No t Available fexofenad ine 180 mg tablet 08/29 completed Not Available Not Available Not Available amlodipin e 5 mg tablet Take 1 tablet every day by oral route as directed for 90 days. 2024 active Not Available Not Available Not Avai lable acetamino phen 500 mg tablet TAKE 2 TABLETS BY MOUTH THREE TIMES DAILY NEEDED FOR PAIN 10/30 completed Not Available Not Available Not Available phentermi ne 30 mg capsule Take 1 capsule every day by oral route in the morning for 30 days. 2024 active Not Available Not Available Not Avai lable amoxicill in 875 mg tablet 08/29 completed Not Available Not Available Not Available famotidin e 20 mg tablet 06/17 completed Not Available Not Available Not Available dicyclomi ne 20 mg tablet 06/17 completed Not Available Not Available Not Available lisinopri l 10 mg tablet TAKE 2 TABLETS BY MOUTH EVERY DAY DIRECTED 08/03 completed Not Available Not Available Not Available promethaz ine 25 mg tablet 01/22 completed Not Available Not Available Not Available monteluka st 10 mg tablet 08/29 completed Not Available Not Available Not Available lisinopri l 5 mg tablet TAKE 1 TABLET BY MOUTH EVERY DAY DIRECTED 07/20 completed Not Available Not Available Not Available metoprolo l succinate ER 25 mg tablet,ex tended release 24 hr Take 1 tablet every day by oral route as directed for 90 days. 2024 active Not Available Not Available Not Avai lable ergocalci ferol (vitamin D2) 1,250 mcg (50,000 unit) capsule TK 1 C PO Q WK UTD 2024 active Not Available Not Available Not Avai lable ibuprofen 600 mg tablet 08/29 completed Not Available Not Available Not Available naproxen 500 mg tablet Take 1 tablet every 12 hours by oral route as needed for 15 days. 07/20 completed Take with food. Not Available Not Available Not Available diazepam 5 mg tablet 08/29 completed Not Available Not Available Not Available amoxicill in 875 mg-potass ium clavulana te 125 mg tablet TAKE 1 TABLET BY MOUTH EVERY 12 HOURS FOR 14 DAYS DIRECTED 02/07 completed Not Available Not Available Not Available Wegovy 0.25 mg/0.5 mL subcutane ous pen injector Inject 0.25 mg every week by subcutan eous route as directed for 30 days. 11/13 completed PA not approved by [employer] Not Available Not Available Not Available Zepbound 2.5 mg/0.5 mL subcutane ous pen injector Inject 2.5 mg every week by subcutan eous route as directed for 30 days. 2024 active Not Available Not Available Not Avai lable Vitals Date Recorded Body height Body mass index (BMI) Body weight Body temperature Oxygen saturation Oxygen saturation in Arterial blood by Pulse oximetry Heart rate Systolic And Diastolic Provider Name and Address Organization Details Last Updated DateTime 162.56 cm 38.8 kg/m2 043864. 93 g 97.6 [degF] 96 % 96 % 69 /min 130/80 mm[Hg] Lorraine Yanez RN [facility] 10:55:51 Date Recorded Body height Body mass index (BMI) Body weight Body temperature Oxygen saturation Oxygen saturation in Arterial blood by Pulse oximetry Heart rate Systolic And Diastolic Provider Name and Address Organization Details Last Updated DateTime 162.56 cm 37.5 kg/m2 75188.8 9 g 97.6 [degF] 99 % 99 % 70 /min 130/84 mm[Hg] Lorraine Yanez RN [facility] 5 10:08:45 Date Recorded Systolic And Diastolic Provider Name and Address Organization Details Last Updated DateTime 11/11/2024 136/86 mm[Hg] [facility] [address] [place], [place], [address], [facility] elicit [facility] 11/11/2024 15:02:35 Date Recorded Body height Body mass index (BMI) Body weight Body temperature Oxygen saturation Oxygen saturation in Arterial blood by Pulse oximetry Heart rate Provider Name and Address Organization Details Last Updated DateTime 162.56 cm 37.6 kg/m2 57372.7 8 g 97.9 [degF] 99 % 99 % 73 /min Lorraine Yanez RN [facility] [employer] 14:53:57 Date Recorded Systolic And Diastolic Provider Name and Address Organization Details Last Updated DateTime 01/21/2025 134/80 mm[Hg] [facility] [address], [place], [address], [place] [address] [facility] 01/21/2025 10:04:29 Date Recorded Body height Body mass index (BMI) Body weight Body temperature Oxygen saturation Oxygen saturation in Arterial blood by Pulse oximetry Heart rate Provider Name and Address Organization Details Last Updated DateTime 162.56 cm 35.4 kg/m2 40976.7 8 g 97.4 [degF] 99 % 99 % 67 /min Lorraine Yanez RN [facility] [employer] 09:56:44 Social History Question Answer Notes LastModified by Organization Details LastModified Time Tobacco Smoking Status Never Smoker Not Available [facility] 06/01/2022 20:58:14 Do You Have An Advance Directive? No [id number] Information not available 06/01/2022 Do You Wear A Helmet When Biking? Yes [id number] Information not available 06/01/2022 What Is Your Level Of Caffeine Consumption? Occasional One Coffee Maybe Twice A Week [email or web address] Information not available 06/25/2024 In The 14 Days Before Symptom Onset, Have You Had Close Contact With A [facility] While That Case Was Ill? No [id number] Information not available 06/01/2022 In The 14 Days Before Symptom Onset, Have You Had Close Contact With A Person Who Is Under Investigation For COVID-19 While That Person Was Ill? No MIGRATION.0301 [id number] Information not available 06/01/2022 What Type Of Diet Are You Following? REGULAR MIGRATION.0301 [id number] Information not available 06/01/2022 Do You Have An Electrostatic Air Filter? No Information not available 08/16/2023 How Many Days Of Moderate To Strenuous Exercise, Like A Brisk Walk, Did You Do In The Last 7 Days? 4 Information not available 07/21/2023 On Those Days That You Engage In Moderate To Strenuous Exercise, How Many Minutes, On Average, Do You Exercise? 45 Information not available 07/21/2023 Have There Been Any Changes To Your Family Or Social Situation? No MIGRATION.0301 [id number] Information not available 06/01/2022 What Is The Fluoride Status Of Your Home? Unknown MIGRATION.0301 [id number] Information not available 06/01/2022 Are There Any Guns Present In Your Home? No MIGRATION.0301 [id number] Information not available 06/01/2022 Do You Have A Humidifier? No Information not available 08/16/2023 Do You Use Insect Repellent Routinely? Yes MIGRATION.0301 [id number] Information not available 06/01/2022 Where Do You Live? [place] MIGRATION.0301 [id number] Information not available 06/01/2022 Do You Have A Medical Power Of Pizzamaker? No MIGRATION.0301 [id number] Information not available 06/01/2022 Do You Have Moisture Problems In Your Home? No Information not available 08/16/2023 What Was The Date Of Your Most Recent Tobacco Screening? 08/16/2023 Information not available 08/16/2023 How Many Children Do You Have? 5 Information not available 07/21/2023 Have You Ever Been Counseled For Unhealthy Alcohol Use? No MIGRATION.0301 [id number] Information not available 06/01/2022 Do You Have Any Pets? Yes MIGRATION.0301 [id number] Information not available 06/01/2022 What Is Your Relationship Status? MIGRATION.0301 066087 Information not available 06/01/2022 Do You Use Your Seat Belt Or Car Seat Routinely? Yes MIGRATION.0301 866262 Information not available 06/01/2022 Do You Have Smoke And Carbon Monoxide Detectors In Your Home? Yes MIGRATION.0301 201864 Information not available 06/01/2022 Are You Passively Exposed To Smoke? No MIGRATION.0301 345559 Information not available 06/01/2022 Are There Any Smokers In Your House? No MIGRATION.0301 606923 Information not available 06/01/2022 Do You Participate In Social Media? Yes MIGRATION.0301 715373 Information not available 06/01/2022 What Types Of Sporting Activities Do You Participate In? Walk,tredmill, Stair Master Information not available 07/21/2023 Do You Use Sunscreen Routinely? Yes MIGRATION.0301 197079 Information not available 06/01/2022 Has Tobacco Cessation Counseling Been Provided? No MIGRATION.0301 083942 Information not available 06/01/2022 Have You Recently Traveled Abroad? No MIGRATION.0301 410559 Information not available 06/01/2022 Are You Currently In School? No MIGRATION.0301 474852 Information not available 06/01/2022 Do You Have Any Dietary Restrictions? No MIGRATION.0301 745869 Information not available 06/01/2022 Sex: Female Functional Status Question Answer Note LastModified by Organizat ion Details LastModified Time Do you use any illicit or recreational drugs? No MIGRATION.71414 98421 Information not available 06/01/2022 Do you or have you ever used any other forms of tobacco or nicotine? No MIGRATION.15344 19223 Information not available 06/01/2022 What is your level of alcohol consumption? Occasional MIGRATION.75002 89491 Information not available 06/01/2022 Have you been exposed to chemicals or toxins? 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 Occasional Information not available 07/21/2023 Mental Status Question Answer Note LastModified by Organizat ion Details LastModified Time Do you feel stressed (tense, restless, nervous, or anxious, or unable to sleep at night)? [id number] [id number] Information not available 06/01/2022 Family History Relationship Description Onset Age of this Age Resolved Age Notes LastModified by Organization Details LastModified Time Mother Diabetes mellitus MIGRATION.697 [id number] Not available 06/01/2022 20:58:22 Mother Hypertensive disorder 54 MIGRATION.448 [id number] Not available 06/01/2022 20:58:22 Father Hypertensive disorder DAD PASSED IN 1997 MIGRATION.361 [id number] Not available 06/01/2022 20:58:22 Mother Obstructive sleep apnea syndrome [email or web address] Not available 2023 09:51:57 Father Obstructive sleep apnea syndrome [email or web address] Not available 2023 09:51:57 Maternal Grandfather Obstructive sleep apnea syndrome [email or web address] Not available 2023 09:51:57 Maternal Grandmother Obstructive sleep apnea syndrome [email or web address] Not available 2023 09:51:57 Maternal Grandmother Malignant neoplasm of colon [email or web address] Not available 2023 09:51:57 Paternal Grandfather Obstructive sleep apnea syndrome [email or web address] Not available 2023 09:51:57 Paternal Grandmother Obstructive sleep apnea syndrome [email or web address] Not available 2023 09:51:57 Sister Hypothyroidi sm [email or web address] Not available 2023 09:51:57 Daughter Asthma [email or web address] Not available 0 08/16/2023 09:35:33 Son Epilepsy [email or web address] Not availabl e 10/20/2023 09:51:57 Medical History Condition Response ALLERGIES/HAYFEVER Y OBESITY Y HYPERTENSION Y Gynecological History Statement/Question Response Abnormal Pap N Flow Moderate Date of LMP 07/23/2021 STIs/STDs N Dislike of Light during Menstrual Headac he N Duration of Flow (days) 4 Most Recent Mammogram Current Control Method IUD Age at Menarche 14 Breast Problems NONE Date of Last Colonoscopy Frequency of Cycle (Q days) 4 Most Recent Bone Density Sexually Active? Y Weight gain N Menses Monthly N Date of Last Pap Smear 04/03/2023 Discharge NONE Obstetrics History GPAL:G 4 P 2 2 0 4 Type Value Multiple Births 4 Full Term 2 Induced 0 Spontaneous 0 Premature 2 Living 4 Ectopics 0 Total 4 Immunizations Vaccine Type Date Status Note Provider Nam e and Address Organization Details Recorded Time COVID-19, mRNA, LNP-S, PF, 30 mcg/0.3 mL dose 11/19/2020 completed Not Available [facility] 21:01:[facility] Past Encounters Encounter ID Performer Location Encounter Start Date Encounter Closed Date Diagnosis/Indication Diagnosis SNOMED-CT Code Diagnosis ICD10 Code Diagnosis IMO Codes Diagnosis Note [id number] Dread Sawyer MD [address] [address] 06/17/2021 00:00:00 06/17/2021 17:09:06 [id number] Dread Sawyer MD [address] [address] 08/05/2021 00:00:00 08/05/2021 10:54:37 [id number] Dread Sawyer MD [address] [address] 07/21/2023 09:48:21 07/21/2023 10:23:24 Essential hypertension 80572445 I10 Sleep disorder 28511510 G47.9 Sleep apnea 23031959 G47 .30 [id number] MD STEVE Hanson[address] [address] 08/16/2023 08:45:36 08/17/2023 08:46:17 Obstructive sleep apnea syndrome 99013956 G47.33 G47.36 G47.61 [id number] Dread Sawyer MD [address] [address] 10/20/2023 09:50:44 10/20/2023 10:35:26 Hypertensive disorder 14969704 I10 Obesity 262617098 E66.9 [id number] Mahendra Parks MD [address] [address] 11/06/2023 09:31:42 11/06/2023 15:30:03 Obstructive sleep apnea syndrome 59693538 G47.33 Periodic l imb movement disorder 795793716 G47.61 D50.8 E83.42 Paroxysmal atrial flutter 419500226 I48.92 [id number] Dread Sawyer MD [address] [address] 06/25/2024 12:09:22 06/25/2024 12:30:46 Adult health examination 362618814 Z00.00 Vitamin D deficiency 347 13372 E55.9 Obesity 997344049 E66.9 Obstructiv e sleep apnea syndrome 10954580 G47.33 Hypertensive disorder 38 431917 I10 [id number] Dread Sawyer MD [address] [address] 08/06/2024 10:25:35 08/06/2024 11:07:32 [id number] Dread Sawyer MD [place] [id number] 08/14/2024 10:22:12 08/14/2024 11:03:39 Vitamin D deficiency 38867558 E55.9 Obesity 707138610 E66.9 Obstructiv e sleep apnea syndrome 70184530 G47.33 Hypertensive disorder 38 084935 I10 [id number] Dread Sawyer MD [place] [id number] 1 09/11/2024 09:58:15 09/11/2024 10:19:26 Vitamin D deficiency 51524028 E55.9 Hypertensive disorder 38 714971 I10 Obesity 818733892 E66.9 Obstructiv e sleep apnea syndrome 05242598 G47.33 [id number] Dread Sawyer MD [place] [id number] 1 11/11/2024 14:46:25 11/11/2024 15:01:31 Hypertensive disorder 98004249 I10 Vitamin D deficiency 347 21560 E55.9 Obesity 744580690 E66.9 Obstructiv e sleep apnea syndrome 93262351 G47.33 [id number] Dread Sawyer MD [facility] [address] [place] [address] 01/21/2025 09:50:51 01/21/2025 10:04:22 Obstructive sleep apnea syndrome 79500552 G47.33 Hypertensive disorder 38 402333 I10 Vitamin D deficiency 347 14593 E55.9 Obesity 254710133 E66.9 Health Concerns Section Related Observation LastModified by Organization Detai ls LastModified Time None Recorded Concern Status LastModified by Organization Details LastModified Time None Recorded Advance Directives Directive N: Payers Insurance Date Sequence Insurance Name Policy Number Policy David Covered Member ID David Member ID Guarantor Name 11/11/2024 1 [facility] (MEDICAID HMO) [id number] Erinn Miramontes [id number] Erinn Miramontes 01/18/2025 1 [facility] [id number] Erinn Miramontes [id number] Erinn Miramontes Notes Date Note Type Note Provider Name and Address Organization Details Recorded Time 08/14/2024 text/html Pt is here for f/u on her annual labs. Doing overall well. Denies any problem with meds. Pt wants to try Phentermine for her wt concern. Pt has OSMIN and is on Cpap for it. Pt denies any issue with her heart rate/palpitation concern. Dread Sawyer MD [address], [place] [address], [place], [address], [employer] 08/14/2024 11:03:53 09/11/2024 text/html Pt is here for f/u on her meds and chronic conditions. Doing overall well. Denies any problem with meds. Happy with her results. So far, 8 lbs wt loss on it. Pt has OSMIN and is on Cpap for it. Pt denies any issue with her heart rate/palpitation concern. Dread Sawyer MD [address], [facility] [address], [place], [address], [employer] 09/11/2024 10:20:12 11/11/2024 text/html Pt is here for f/u on her meds and chronic conditions. Doing overall well. Denies any problem with meds. Happy with her results. So far, 7 lbs wt loss on it. Pt has OSMIN and is on Cpap for it. Pt denies any issue with her heart rate/palpitation concern. Dread Sawyer MD [address], [place], [address], [employer] 11/11/2024 15:03:48 01/21/2025 text/html Pt is here for f/u on her meds and chronic conditions. Doing overall well. Denies any problem with meds. Happy with her results. So far, 20 lbs wt loss on it. Wegovy is too costly for pt. Pt is checking BP at home and its good, no concern with it. Pt has OSMIN and is on Cpap for it. Pt denies any issue with her heart rate/palpitation concern. Dread Sawyer MD [address], [place], [address], [employer] 01/21/2025 10:06:18 OBGyn Episode No OBEpisode recorded.
--- NOTE | 2025-01-30 12:03 | ED.ABDPAIN ---
HPI - Abdominal Pain General Chief Complaint: Abdominal Pain Stated Complaint: abd pain Time Seen by Provider: 01/30/25 11:25 Source: patient Mode of arrival: ambulatory Limitations: no limitations History of Present Illness HPI narrative: Gely is a 40-year-old female patient presenting to the emergency room for upper abdominal pain that just started 0400 this morning. Reports the pain is sharp ,constant, she is rating her pain 8/10 currently. No fevers, chills, body aches. Denies any nausea or vomiting. Last bowel movement was this morning she denies any urinary symptoms. Last menstrual period was the last week of December. Patient states she still has her IUD-likely 10 years old. Patient has been dieting and recently broke her diet over the weekend. Related Data Home Medications ?Medication ?Instructions ?Recorded ?Confirmed ?Last Taken ?Type metoprolol succinate 25 mg 12.5 mg PO DAILY 05/21/21 Unknown History tablet,extended release 24 hr Allergies Allergy/AdvReac Type Severity Reaction Status Date / Time grape Allergy Intermediate swelling Verified 01/30/25 10:44 Review of Systems Review of Systems: Pertinent positives per HPI. Patient denies any fever, chills, rash, headache, visual changes, dizziness, cough, runny nose, sore throat, shortness of breath, chest pain, palpitations, nausea, vomiting, diarrhea, constipation, or any urinary issues. [facility] Past Medical History Medical History Hypertension Exam Narrative: General: Well-developed, well nourished, in no apparent distress. Head: Normocephalic, atraumatic. Cardio: Regular rate and rhythm, s1 and s2 normal, no murmur appreciated. Resp: Clear to auscultation bilaterally, no rhonchi, rales, wheezing or rubs. Abdomen: Soft, pliable, bowel sounds present in all quadrants, bilateral upper quadrant tender to palpation, no organomegly, no CVAT tenderness. Course Vital Signs Vital signs: Vital Signs Temperature 36.6 C 01/30/25 10:53 Pulse Rate 105 H 01/30/25 10:53 Respiratory Rate 18 01/30/25 10:53 Blood Pressure 150/97 H 01/30/25 10:53 Pulse Oximetry 99 01/30/25 10:53 Oxygen Delivery Room Air 01/30/25 10:53 Temperature 36.7 C 01/30/25 12:20 Pulse Rate 101 H 01/30/25 15:59 Respiratory Rate 18 01/30/25 15:59 Blood Pressure 161/118 H 01/30/25 15:59 Pulse Oximetry 100 01/30/25 15:59 Oxygen Delivery Room Air 01/30/25 10:53 MDM - Abdominal Pain MDM Narrative Medical decision making narrative: At the time of visit patient is resting comfortably on the exam table. Patient appears to be nontoxic. C/o upper abdominal pain that just started this morning. Reports the pain is sharp ,constant, she is rating her pain 8/10 currently. No fevers, chills, body aches. Denies any nausea or vomiting. Last bowel movement was this morning she denies any urinary symptoms. Last menstrual period was the last week of December. Patient states she still has her IUD. IUD is approximately 10 years old. Patient has been dieting and recently broke her diet over the weekend. On exam patient has soft pliable abdomen, nondistended, bowel sounds present all 4 quadrants, tender to palpation over the upper abdomen, no CVAT tenderness, no organomegaly Labs: Bedside test was positive, hCG 143.8, CBC unremarkable, CMP shows sodium 136, potassium of 4, chloride 103, carbon dioxide 25, BUN is 7, creatinine 0.6, GFR greater than 60, calcium 2.5, glucose is 84, AST is 29, ALT is 48, lipase is 24. Urinalysis shows 1+ leukocytes and to 5 white blood cells and 3-5 red blood cells with rare bacteria. Diagnostics: Transvaginal ultrasound shows . The IUD has been displaced. 2. There is a tiny fluid collection in the endometrial cavity with thick mild thickening of the endometrium. This representing an early gestational sac cannot be excluded. Follow-up with serial beta-hCGs and pelvic ultrasound if necessary. 3. Sizable ovarian cyst on the right as described. Plan: Patient has upper abdominal pain that has improved since being in the emergency room. Patient urine test and hcq positive with HCQ of 143. UA shows 1 + leukocytes and rare bacteria- will cover with Macrobid. Trans vag US performed to r/o ectopic- no ectopic - results above. Contacted Dr Woodard and patient case was discussed at she still has IUD in her uterus. Patient is taking Amlodipine and Atenolol- Dr. Yamilet ling with patient remaining on the medications at this time. Will ordered HCG to be done on Feb 01 2025 and have patient contact his office tomorrow to schedule an appointment next week. Supportive measures were discussed with the patient and they voiced understanding discharge instructions and agrees to treatment plan. Return precautions reviewed Differential Diagnosis Differential diagnosis: Likely abdominal pain and other (Ectopic , gastritis, GERD,) Lab Data 01/30/25 11:59 01/30/25 12:28 Labs: Lab Results 01/30/25 01/30/25 01/30/25 Range/Units 11:59 12:10 12:28 WBC 9.1 (4.5-10.0) K/mm3 RBC 4.73 (4.2-5.4) M/mm3 Hgb 14.1 (12.0-15.0) g/dL Hct 41.6 (37.0-47.0) % MCV 87.9 (80-100) fl MCH 29.8 (26-34) pg MCHC 33.9 (32-36) g/dl RDW 13.0 (11.5-14.5) % Plt Count 241 (150-375) k/mm3 MPV 10.5 H (7.4-10.4) fl Immature Gran % (Auto) 0.2 (0-0.5) % Neut % (Auto) 71.4 (45.5-73.1) % Lymph % (Auto) 19.7 (18.3-44.2) % Humphreys % (Auto) 7.6 (2.6-8.5) % Eos % (Auto) 0.8 (0-4.4) % Baso % (Auto) 0.3 (0.2-1.2) % Lymph # (Auto) 1.79 (0.9-3.2) K/mm3 Humphreys # (Auto) 0.7 H (0.1-0.6) K/mm3 Eos # (Auto) 0.1 (0-0.3) K/mm3 Baso # (Auto) 0.0 (0.0-0.1) K/mm3 Abs Immat Gran (auto) 0.02 (0.00-0.031) K/mm3 Absolute Neuts (auto) 6.5 (1.3-6.7) K/mm3 Absolute Nucleated RBC 0.000 (0.0-0.012) K/mm3 Nucleated RBC % 0.0 (0.0-0.2) % % Immature Plt Fraction 5.5 (0.9-11.2) % Sodium 136 L (137-145) mmol/L Potassium 4.0 (3.4-5.0) mmol/L Chloride 103 (98-107) mmol/L Carbon Dioxide 25 (22-30) mmol/L Anion Gap 8 (4-12) mmol/L BUN 7 (7-17) mg/dL Creatinine 0.60 L (0.7-1.0) mg/dL Estim Creat Clear Calc 119 ml/min Estimated GFR > 60 (59 - ) Glucose 84 (65-110) mg/dL Calcium 10.5 H (8.4-10.2) mg/dL Total Bilirubin 0.9 (0.2-1.3) mg/dL AST 29 (14-36) U/L ALT 48 H (6-35) U/L Alkaline Phosphatase 89 (38-126) U/L Total Protein 7.8 (6.3-8.2) g/dL Albumin 4.5 (3.5-5.1) g/dL Lipase 24 (23-300) U/L Beta HCG, Quant 143.18 mIU/ML Urine Color Yellow (Yellow) Urine Appearance Clear (Clear) Urine pH 6.5 (5.0-9.0) Ur Specific Bradford 1.016 (1.001-1.035) Urine Protein Negative (Negative) mg/dL Urine Glucose (UA) Negative (Negative) mg/dL Urine Ketones Negative (Negative) mg/dL Ur Blood (Man) Negative (Negative) Urine Nitrate Negative (Negative) Urine Bilirubin Negative (Negative) Urine Urobilinogen 0.2 (<2.0) mg/dL Add Ur Microanalysis Reviewed Leukocyte Esterase Rfl 1+ H (Negative) RIVER/UL Urine RBC 3-5 H (0-2) /hpf Urine WBC 0-5 (0-3) /hpf Ur Squamous Epith Cells None seen (Few) /hpf Urine Bacteria Rare /hpf Urine Casts 0-2 POC Urine HCG, Qual Positive (Negative) 01/30/ Range/Units 12:28 WBC (4.5-10.0) K/mm3 RBC (4.2-5.4) M/mm3 Hgb (12.0-15.0) g/dL Hct (37.0-47.0) % MCV (80-100) fl MCH (26-34) pg MCHC (32-36) g/dl RDW (11.5-14.5) % Plt Count (150-375) k/mm3 MPV (7.4-10.4) fl Immature Gran % (Auto) (0-0.5) % Neut % (Auto) (45.5-73.1) % Lymph % (Auto) (18.3-44.2) % Humphreys % (Auto) (2.6-8.5) % Eos % (Auto) (0-4.4) % Baso % (Auto) (0.2-1.2) % Lymph # (Auto) (0.9-3.2) K/mm3 Humphreys # (Auto) (0.1-0.6) K/mm3 Eos # (Auto) (0-0.3) K/mm3 Baso # (Auto) (0.0-0.1) K/mm3 Abs Immat Gran (auto) (0.00-0.031) K/mm3 Absolute Neuts (auto) (1.3-6.7) K/mm3 Absolute Nucleated RBC (0.0-0.012) K/mm3 Nucleated RBC % (0.0-0.2) % % Immature Plt Fraction (0.9-11.2) % Sodium (137-145) mmol/L Potassium (3.4-5.0) mmol/L Chloride (98-107) mmol/L Carbon Dioxide (22-30) mmol/L Anion Gap (4-12) mmol/L BUN (7-17) mg/dL Creatinine (0.7-1.0) mg/dL Estim Creat Clear Calc ml/min Estimated GFR (59 - ) Glucose (65-110) mg/dL Calcium (8.4-10.2) mg/dL Total Bilirubin (0.2-1.3) mg/dL AST (14-36) U/L ALT (6-35) U/L Alkaline Phosphatase (38-126) U/L Total Protein (6.3-8.2) g/dL Albumin (3.5-5.1) g/dL Lipase (23-300) U/L Beta HCG, Quant Cancelled mIU/ML Urine Color (Yellow) Urine Appearance (Clear) Urine pH (5.0-9.0) Ur Specific Bradford (1.001-1.035) Urine Protein (Negative) mg/dL Urine Glucose (UA) (Negative) mg/dL Urine Ketones (Negative) mg/dL Ur Blood (Man) (Negative) Urine Nitrate (Negative) Urine Bilirubin (Negative) Urine Urobilinogen (<2.0) mg/dL Add Ur Microanalysis Leukocyte Esterase Rfl (Negative) RIVER/UL Urine RBC (0-2) /hpf Urine WBC (0-3) /hpf Ur Squamous Epith Cells (Few) /hpf Urine Bacteria /hpf Urine Casts POC Urine HCG, Qual (Negative) Imaging Data Radiologist's impression: ITS Impressions Obstetrics Ultrasound 01/30/25 15:36 IMPRESSION: 1. The IUD has been displaced. 2. There is a tiny fluid collection in the endometrial cavity with thick mild thickening of the endometrium. This representing an early gestational sac cannot be excluded. Follow-up with serial beta-hCGs and pelvic ultrasound if necessary. 3. Sizable ovarian cyst on the right as described. Discharge Plan Discharge Clinical Impression: Abdominal pain during in first trimester Qualifiers: Weeks of gestation: less than 8 weeks Qualified Code(s): Z3A.01 - Less than 8 weeks gestation of Urinary tract infection during Qualifiers: Trimester: first trimester Qualified Code(s): O23.41 - Unspecified infection of urinary tract in , first trimester Patient Disposition: Home Condition: Stable Instructions: Antibiotic Form, Abdominal Pain in (ED), Urinary Tract Infection in (ED) Additional Instructions: Increase fluids and stay well hydrated May take Tylenol as needed for pain Repeat hCG level on MondayFebruary 01 May continue your current blood pressure medications at this time. Take Macrobid as prescribed for UTI Follow-up with Dr. Yamilet FISH- call office tomorrow to schedule appointment for next week. Approved Medications for Patients Cold and Flu Symptoms --Tylenol (regular or extra Strength) Fever (call if over 101?)--Tylenol (regular or extra Strength) Nasal Drainage/Head Congestion--Chlor-Trimeton, Sudafed, Tavist,Tylenol Sinus Cough--Robitussin, Delsym, Mucinex Sore Throat--Chloraseptic, Cepacol lozenges Allergy Symptoms--Benadryl, Zyrtec, Zyrtec D, Claritin, Claritin D Nausea--Emetrol, Vitamin B6 Tablets, Carli, Carli Tea, Preggie Pops, B-Renetta Suckers Constipation--Milk of Magnesia, Metamucil, Fiberall, Konsyl, Colace (Docusate Sodium) Diarrhea--Imodium, Kaopectate, Follow BRAT diet: bananas, rice, applesauce, tea/toast Heartburn--Maalox, Mylanta, TUMS, Prilosec OTC, Zantac, Tagament, Prevacid, Pepcid Hemorrhoids--Tucks Pads, Anusol, Preparation H, warm sitz baths Patient Language: Tajik Prescriptions: New nitrofurantoin monohyd/m-cryst [Macrobid] 100 mg capsule 100 mg PO Q12H 5 Days Qty: 10 0RF Rx Instructions: must administer with a meal/food No Action ibuprofen 800 mg tablet 800 mg PO TID PRN (Reason: pain) 7 Days Qty: 21 0RF acetaminophen 500 mg tablet 1,000 mg PO TID PRN (Reason: bridget) 7 Days Qty: 42 0RF amoxicillin-pot clavulanate 875-125 mg tablet 1 tablet PO Q12H Qty: 20 0RF metoprolol succinate 25 mg Tablet Extended Release 24 Hr 12.5 mg PO DAILY naproxen 500 mg tablet 500 mg PO BID Qty: 14 0RF Other Ambulatory Orders: Beta HCG Quantitative (Routine) Timeframe: 2 Days Location: Determined by Patient Ordered By: Ketan Connolly Follow-up/Referrals: Gissel,Mayda Bhakta, HEAD ATHLETIC TRAINER/STRENGTH COACH [Primary Care Provider, Unknown] Time of Disposition: 17:06
[2025-01-30 12:13] LABS: Hematocrit 41.6 % (37.0-47.0); Hemoglobin 14.1 g/dL (12.0-15.0); Immature Granulocyte Percent A 0.2 % (0-0.5); Immature Platelet Fraction Pct 5.5 % (0.9-11.2); Lymphocytes Absolute Auto 1.79 K/mm3 (0.9-3.2); Mean Corpuscular HGB Conc 33.9 g/dl (32-36); Mean Corpuscular Hemoglobin 29.8 pg (26-34); Mean Corpuscular Volume 87.9 fl (80-100); Nucleated Red Blood Cells Absolute Auto 0.000 K/mm3 (0.0-0.012); Nucleated Red Blood Cells Perc 0.0 % (0.0-0.2); Platelet Count Result 241 k/mm3 (150-375); Red Blood Count 4.73 M/mm3 (4.2-5.4); White Blood Count 9.1 K/mm3 (4.5-10.0)
[2025-01-30 12:14] LABS: BEDSIDEPREGUCG Positive (Negative)
[2025-01-30 12:20] VITALS: BP 158/112; PULSE 106; RESP 20; TEMP 36.7; O2SAT 100
[2025-01-30 12:23] LABS: Add Urine Microscopic? YES; Appearance Urine Clear (Clear); Glucose Urine UA Negative (Negative); Leukocyte Esterase Ur 1+ LEU/UL (Negative); Need Manual Microscopic Reviewed; Nitrate Urine Negative (Negative); Non Pathogenic Casts 0-2; Specific Grav Ur 1.016 (1.001-1.035)
[2025-01-30 12:49] LABS: Alanine Aminotransferase 48 U/L (6-35); Albumin Level 4.5 g/dL (3.5-5.1); Alkaline Phosphatase 89 U/L (38-126); Anion Gap 8 mmol/L (4-12); Aspartate Amino Transferase 29 U/L (14-36); Bilirubin,Total 0.9 mg/dL (0.2-1.3); Blood Urea Nitrogen 7 mg/dL (7-17); Calcium 10.5 mg/dL (8.4-10.2); Carbon Dioxide 25 mmol/L (22-30); Chloride 103 mmol/L (98-107); Estimated CRCL calculation 119 ml/min; Estimated Glomerular Filt Rate > 60; Glucose 84 mg/dL (65-110); Lipase 24 U/L (23-300); Potassium 4.0 mmol/L (3.4-5.0); Sodium 136 mmol/L (137-145); Total Protein 7.8 g/dL (6.3-8.2)
[2025-01-30 13:06] LABS: Beta HCG Quantitative 143.18 mIU/ML
[2025-01-30 15:59] VITALS: BP 161/118; PULSE 101; RESP 18; O2SAT 100
[2025-01-30 17:20] VITALS: BP 157/118; PULSE 114; RESP 20; O2SAT 100
== END 2025-01-30 17:21 | disposition home or self-care (01) ==
PROVIDERS: Emergency Provider Nurse Practitioner Family
DX: O23.41 Unspecified infection of urinary tract in pregnancy, first trimester (principal); R10.10 Upper abdominal pain, unspecified; Z3A.01 Less than 8 weeks gestation of pregnancy
CPT/HCPCS: 36415; 76801; 76817; 80053; 81001; 81025; 83690; 84702; 85025; 85055; 87086; 99284

== ENCOUNTER 2025-02-01 09:19 | Outpatient (CLI) | payer OTHER, SELFPAY ==
[2025-02-01 10:09] LABS: Beta HCG Quantitative 283.94 mIU/ML
== END 2025-02-01 09:20 | disposition home or self-care (01) ==
LOC: ANHLAB 09:20
PROVIDERS: Visit Provider Nurse Practitioner Family
DX: O26.891 Other specified pregnancy related conditions, first trimester (principal); Z3A.00 Weeks of gestation of pregnancy not specified
CPT/HCPCS: 36415; 84702

== ENCOUNTER 2025-02-04 11:54 | Outpatient (CLI) | payer OTHER, SELFPAY ==
[2025-02-04 13:03] LABS: Beta HCG Quantitative 878.13 mIU/ML
--- OUTSIDE RECORDS SUMMARY | 2025-02-04 14:02 | XMS_ITS | Clinical Summary ---
Author Organization [facility] [place] Address [address] [place] [id number] Care Team Providers Care Coastal And Estuary Specialist Name Role Phone Unavailable Primary Care Provider Unavailabl e Social History Tobacco Use Types Packs/Day Years Used Date Smoking Tobacco: Never Assessed Comments Unknown Sex and Gender Information Value Date Recorded Sex Assigned at Not on file Legal Sex Female 8:27 PM CDT Gender Identity Not on file Sexual Orientation Not on file Plan of Treatment Health Maintenance Due Date Last Done Comments Cervical Cancer Screening Pa p Smear (Age 30 to 64) Every 3 Years 1987 Annual Physical 1990 Hepatitis C 2005 DTaP, Tdap and Td Vaccines ( 1 - Tdap) 2006 Hepatitis B Vaccines (1 of 3 - 19+ 3-dose series) 2006 HPV Vaccines (1 - 3-dose SCD M series) 2014 Cervical Cancer Screening Pa p with HPV Testing (Age 30 to 64) Every 5 Years 2017 Cervical Cancer Screening with HPV 2017 COVID-19 Vaccine (2024-2 6 season) 2024 Influenza Adult (#1) 2025 Hepatitis A Vaccines Aged Out No long er eligible based on patient's age to complete this topic Meningococcal B Vaccine Aged Out No l onger eligible based on patient's age to complete this topic Meningococcal Vaccine Aged Out No emily claudio eligible based on patient's age to complete this topic Pneumococcal Vaccine: Pediat rics (0 to 5 Years) and At-Risk Patients (6 to 49 Years) Aged Out No longer eligible b ased on patient's age to complete this topic RSV Immunizations Under 20 Months Aged Out No longer eligible based on patient's age to complete this topic
== END 2025-02-04 11:55 | disposition home or self-care (01) ==
PROVIDERS: Visit Provider Nurse Practitioner Family
DX: O20.9 Hemorrhage in early pregnancy, unspecified (principal); Z3A.00 Weeks of gestation of pregnancy not specified
CPT/HCPCS: 36415; 84702; 86900; 86901

== ENCOUNTER 2025-02-06 07:17 | Outpatient (CLI) | payer OTHER, SELFPAY ==
[2025-02-06 09:38] LABS: Beta HCG Quantitative 1413.50 mIU/ML
--- OUTSIDE RECORDS SUMMARY | 2025-02-06 16:21 | XMS_ITS | Data Portability ---
Author Organization [place] - [facility] [employer], Main Office Address [address] [place] [address] Care Team Providers Care Fitter Helper Name Role Phone IVANA DREAD Primary Care Provider [phone] Assessment Encounter Date Assessment Date Assessment LastModified [...] in 1 month. Annual labs in 06/26. [email or web address] Not available 08/14/2024 11:02:33 09/11/2024 09/11/2024 37 [...] in 2 months. Annual labs in 06/26. [email or web address] Not available 09/11/2024 10:19:16 11/11/2024 11/11/2024 37 [...] months. Annual labs in 06/26. Not available 11/11/2024 14:57:47 01/21/2025 01/21/2025 38 [...] in 2 months. Annual labs in 06/26. [email or web address] Not available 01/21/2025 10:05:21 Plan of Treatment Reminders Order Date Submit Date Provider Last Modified By Organization Details Last Modified Time Details Appointments Any 15 2024 02:30P M Dread Sawyer MD Not available Not available Not available Lab None recorded. Referral None recorded. Procedures None recorded. Surgeries None recorded. Imaging None recorded. Medication Orders phentermi ne 30 mg capsule 2024 [email or web address] [facility] #92050, [address], [id number], 01/21/2025 10:01:40 Zepbound 2.5 mg/0.5 mL subcutane ous pen injector 2024 [facility] #04879, [address], [id number], 01/21/2025 10:02:37 [facility]lodipin e 5 mg tablet 2024 [facility], [address], [id number], 01/21/2025 10:01:03 metoprolo l succinate ER 25 mg tablet,ex tended release 24 hr 2024 [facility], [address], [id number], 01/21/2025 10:01:05 ergocalci ferol (vitamin D2) 1,250 mcg (50,000 unit) capsule 2024 [facility], [address], [id number], 01/21/2025 10:01:02 phentermi ne 30 mg capsule 2024 025 [facility] #84591, [address] [facility] [address] [facility], [place], [place], [id number], 11/11/2024 15:00:16 [email or web address] 0.25 mg/0.5 mL subcutane ous pen injector 2024 025 [email or web address] 2 [facility] #82627, [address] [address], [place], [place], [id number], 11/13/2024 09:32:14 amlodipin e 5 mg tablet 2024 [facility] #06233, [address], [id number], 11/11/2024 15:00:12 metoprolo l succinate ER 25 mg tablet,ex tended release 24 hr 2024 025 [facility] #02614, [address], [id number], 11/11/2024 15:00:13 ergocalci ferol (vitamin D2) 1,250 mcg (50,000 unit) capsule 2024 025 [facility] #25851, [address] [facility] [address] [facility], [place], [place], [id number], 11/11/2024 15:00:13 phentermi ne 15 mg capsule 2024 025 [email or web address] [facility] #54489, [address], [id number], 11/11/2024 15:03:00 amlodipin e 5 mg tablet 2024 025 [facility] #79284, [address] [facility], [place], [place], [id number], 09/11/2024 10:17:26 metoprolo l succinate ER 25 mg tablet,ex tended release 24 hr [email or web address] [facility] #57455, [address] [facility], [place], [place], [id number], 09/11/2024 10:17:53 ergocalci ferol (vitamin D2) 1,250 mcg (50,000 unit) capsule 2024 025 [facility] #59557, [address] [facility] [address] [place] [address], [id number], 09/11/2024 10:17:25 phentermi ne 15 mg capsule 2024 025 [email or web address] [facility] #39984, [address] [place] [address], [id number], 11/11/2024 15:03:00 amlodipin e 5 mg tablet 2024 025 [facility] #14733, [address] [place] [address], [id number], 08/14/2024 11:01:25 metoprolo l succinate ER 25 mg tablet,ex tended release 24 hr 2024 025 [facility] #09833, [address] [place] [address], [id number], 08/14/2024 11:01:25 ergocalci ferol (vitamin D2) 1,250 mcg (50,000 unit) capsule 2024 025 [facility] #00567, [address] [place] [address], [id number], 08/14/2024 11:01:25 Patient TargetsNo targets recorded. Patient Instructions Encounter Date Encounter Id Patient Instructions Last Modified By Organization Details Last Modified Time 08/14/2024 [id number] When You Want to Lose Weight: Care Instructions [email or web address] Not available 08/14/2024 11:01:18 09/11/2024 [id number] When You Want to Lose Weight: Care Instructions [email or web address] Not available 09/11/2024 10:17:19 11/11/2024 [id number] When You Want to Lose Weight: Care Instructions Not available 11/11/2024 15:00:01 01/21/2025 [id number] When You Want to Lose Weight: Care Instructions [email or web address] Not available 01/21/2025 10:00:54 Reason for Referral None Reported. Results Created Date Observation Date Name Description Value Unit Range Abnormal Flag Note LastModifiedBy Organization Detail LastModifiedTime 08/07/1908/06/2024 CBC/C OMPLE TE BLD COUNT W/DIF F white blood cells 7.1 x10'3 /uL 4.2-10 .8 Not Available [facility] (Lab) [address] [place], [address], 08/06/2024 19:12:02 08/07/19 25 08/06/2024 CBC/C OMPLE TE BLD COUNT W/DIF F red blood cells 4.34 x10'6 /uL 3.80-5 .20 Not Available [facility] (Lab) [address] [place], [address], 08/06/2024 19:12:02 08/07/19 25 08/06/2024 CBC/C OMPLE TE BLD COUNT W/DIF F hemoglobin 13.1 g/dL 12.0-1 5.6 Not Available [facility] (Lab) [address] [place], [address], 08/06/2024 19:12:02 08/07/19 25 08/06/2024 CBC/C OMPLE TE BLD COUNT W/DIF F hematocrit 40.0 % 35.7-4 5.7 Not Available [facility] (Lab) [address] [place], [address], 08/06/2024 19:12:02 08/07/19 25 08/06/2024 CBC/C OMPLE TE BLD COUNT W/DIF F mean red cell volume 92.2 fL 82.0-9 9.0 Not Available [facility] (Lab) [address] [place], [address], 08/06/2024 19:12:02 08/07/19 25 08/06/2024 CBC/C OMPLE TE BLD COUNT W/DIF F mean red cell hemoglobin 30.2 pg 27.0-3 3.0 Not Available [facility] (Lab) [address] [place], [address], 08/06/2024 19:12:02 08/07/19 25 08/06/2024 CBC/C OMPLE TE BLD COUNT W/DIF F mean RBC HGB concentratio n 32.8 g/dL 31.0-3 6.0 Not Available [facility] (Lab) [address] [place], [address], 08/06/2024 19:12:02 08/07/1908/06/2024 CBC/C OMPLE TE BLD COUNT W/DIF F red cell distribution width 13.0 % 11.8-1 5.5 Not Available [facility] (Lab) [address] [place], [address], 08/06/2024 19:12:02 08/07/1908/06/2024 CBC/C OMPLE TE BLD COUNT W/DIF F platelets 314 x10'3 /uL 150-40 0 Not Available [facility] (Lab) [address] [facility] [place], [address], 08/06/2024 19:12:02 08/07/19 25 08/06/2024 CBC/C OMPLE TE BLD COUNT W/DIF F mean platelet volume 9.3 fL 9.0-12 .4 Not Available [facility] (Lab) [address] [place], [address], 08/06/2024 19:12:02 08/07/1908/06/2024 CBC/C OMPLE TE BLD COUNT W/DIF F neutrophils 67.4 % 39.0-7 2.0 Not Available [facility] (Lab) [address] [place], [address], 08/06/2024 19:12:02 08/07/1908/06/2024 CBC/C OMPLE TE BLD COUNT W/DIF F lymphocytes 23.3 % 16.0-4 7.0 Not Available [facility] (Lab) [address] [place], [address], 08/06/2024 19:12:02 08/07/1908/06/2024 CBC/C OMPLE TE BLD COUNT W/DIF F monocytes 8.3 % 5.0-12 .0 Not Available [facility] (Lab) [address] [place], [address], 08/06/2024 19:12:02 08/07/1908/06/2024 CBC/C OMPLE TE BLD COUNT W/DIF F eosinophils 0.3 % 1.0-7. 0 low Not Available [facility] (Lab) [address] [place], [address], 08/06/2024 19:12:02 08/07/1908/06/2024 CBC/C OMPLE TE BLD COUNT W/DIF F basophils 0.4 % 0.0-2. 0 Not Available [facility] (Lab) [address] [place], [address], 08/06/2024 19:12:02 08/07/19 25 08/06/2024 CBC/C OMPLE TE BLD COUNT W/DIF F immature granulocytes 0.3 % 0.00-0 .50 Not Available [facility] (Lab) [address] [place], [address], 08/06/2024 19:12:02 08/07/1908/06/2024 CBC/C OMPLE TE BLD COUNT W/DIF F neutrophils, absolute count 4.78 x10'3 /uL 1.5-8. 0 Not Available [facility] (Lab) [address] [place], [address], 08/06/2024 19:12:02 08/07/1908/06/2024 CBC/C OMPLE TE BLD COUNT W/DIF F lymphocytes, absolute count 1.65 x10'3 /uL 1.07-3 .43 Not Available [facility] (Lab) [address] [place], [address], 08/06/2024 19:12:02 08/07/1908/06/2024 CBC/C OMPLE TE BLD COUNT W/DIF F monocytes, absolute count 0.59 x10'3 /uL 0.29-0 .99 Not Available [facility] (Lab) [address] [place], [address], 08/06/2024 19:12:02 08/07/1908/06/2024 CBC/C OMPLE TE BLD COUNT W/DIF F eosinophils, absolute count 0.02 x10'3 /uL 0.02-0 .53 Not Available [facility] (Lab) [address] [place], [address], 08/06/2024 19:12:02 08/07/1908/06/2024 CBC/C OMPLE TE BLD COUNT W/DIF F basophils, absolute count 0.03 x10'3 /uL 0.01-0 .08 Not Available [facility] (Lab) [address] [place], [address], 08/06/2024 19:12:02 08/07/1908/06/2024 CBC/C OMPLE TE BLD COUNT W/DIF F immature granulocytes ,absolute 0.02 x10'3 /uL 0.00-0 .05 Not Available [facility] (Lab) [address] [place], [address], 08/06/2024 19:12:02 08/07/19 25 08/06/2024 CBC/C OMPLE TE BLD COUNT W/DIF F nucleated red blood cells 0.0 % -0 Not Available [facility] (Lab) [address] [place], [address], 08/06/2024 19:12:02 08/07/19 25 08/06/2024 CBC/C OMPLE TE BLD COUNT W/DIF F NRBC# 0.00 x10'3 /uL Not Available [facility] (Lab) [address] [place], [address], 08/06/2024 19:12:02 08/07/19 25 08/06/2024 URINA LYSIS COMPL ETE/I RIS W/RFX color LIGHT- YELLOW Not Available [facility] (Lab) [address] [place], [address], 08/06/2024 19:19:12 08/07/19 25 08/06/2024 URINA LYSIS COMPL ETE/I RIS W/RFX appear TURBID abnormal Not Available [facility] (Lab) [address] [place], [address], 08/06/2024 19:19:12 08/07/19 25 08/06/2024 URINA LYSIS COMPL ETE/I RIS W/RFX specific gravity 1.013 1.001- 1.030 Not Available [facility] (Lab) [address] [place], [address], 08/06/2024 19:19:12 08/07/19 25 08/06/2024 URINA LYSIS COMPL ETE/I RIS W/RFX pH 6.5 pH_un its 5.0-9. 0 Not Available [facility] (Lab) [address] [place], [address], 08/06/2024 19:19:12 08/07/19 25 08/06/2024 URINA LYSIS COMPL ETE/I RIS W/RFX leukocytes 75 pili/u L negati ve- abnormal Not Available [facility] (Lab) [address] [place], [address], 08/06/2024 19:19:12 08/07/19 25 08/06/2024 URINA LYSIS COMPL ETE/I RIS W/RFX nitrite NEGATI VE negati ve- Not Available [facility] (Lab) [address] [place], [address], 08/06/2024 19:19:12 08/07/19 25 08/06/2024 URINA LYSIS COMPL ETE/I RIS W/RFX protein NEGATI VE mg/dL negati ve- Not Available [facility] (Lab) [address] [place], [address], 08/06/2024 19:19:12 08/07/19 25 08/06/2024 URINA LYSIS COMPL ETE/I RIS W/RFX glucose NORMAL mg/dL normal - Not Available [facility] (Lab) [address] [place], [address], 08/06/2024 19:19:12 08/07/19 25 08/06/2024 URINA LYSIS COMPL ETE/I RIS W/RFX ketones NEGATI VE mg/dL negati ve- Not Available [facility] (Lab) [address] [place], [address], 08/06/2024 19:19:12 08/07/19 25 08/06/2024 URINA LYSIS COMPL ETE/I RIS W/RFX urobilinogen NORMAL mg/dL normal - Not Available [facility] (Lab) [address] [place], [address], 08/06/2024 19:19:12 08/07/1908/06/2024 URINA LYSIS COMPL ETE/I RIS W/RFX bilirubin NEGATI VE mg/dL negati ve- Not Available [facility] (Lab) [address] [place], [address], 08/06/2024 19:19:12 08/07/19 25 08/06/2024 URINA LYSIS COMPL ETE/I RIS W/RFX blood 0.06 mg/dL negati ve- abnormal Not Available [facility] (Lab) [address] [place], [address], 08/06/2024 19:19:12 08/07/19 25 08/06/2024 URINA LYSIS COMPL ETE/I RIS W/RFX white blood cells 0-8 /i??h pfi?? 0-8 Not Available [facility] (Lab) [address] [place], [address], 08/06/2024 19:19:12 08/07/19 25 08/06/2024 URINA LYSIS COMPL ETE/I RIS W/RFX red blood cells 0-4 /i??h pfi?? 0-4 Not Available [facility] (Lab) [address] [facility] [place], [address], 08/06/2024 19:19:12 08/07/1908/06/2024 URINA LYSIS COMPL ETE/I RIS W/RFX bacteria NONE none seen- Not Available [facility] (Lab) [address] [place], [address], 08/06/2024 19:19:12 08/07/19 25 08/06/2024 URINA LYSIS COMPL ETE/I RIS W/RFX mucous OCCASI ONAL /i??l pfi?? none seen- abnormal Not Available [facility] (Lab) [address] [place], [address], 08/06/2024 19:19:12 08/07/1908/06/2024 URINA LYSIS COMPL ETE/I RIS W/RFX squamous epithelial FEW /i??l pfi?? abnormal Not Available [facility] (Lab) [address] [place], [address], 08/06/2024 19:19:12 08/07/19 25 08/06/2024 LIPID PANEL cholesterol 145 mg/dL 140-19 9 NIH NIKKI NSUS RECOM MENDA TION FOR BEENA STERO L: ADULT CHILD LOW RISK: <200 <170 BORDE RLINE : <200- 239 ----- HIGH RISK: >240 >200 Not Available [facility] (Lab) [address] [place], [address], 08/06/2024 19:38:53 08/07/1908/06/2024 LIPID PANEL triglyceride s 56 mg/dL 0-150 NIH NIKKI NSUS REPOR T RECOM MENDA TION FOR TRIGL YCERI PAOLA: ADULT CHILD LOW RISK: <150 ----- BODER LINE: 150-1 99 ----- HIGH RISK: >200 ----- Not Available [facility] (Lab) [address] [place], [address], 08/06/2024 19:38:53 08/07/19 25 08/06/2024 LIPID PANEL HDL cholesterol 49 mg/dL 40- Not Available [facility] (Lab) [address] [place], [address], 08/06/2024 19:38:53 08/07/1908/06/2024 LIPID PANEL LDL cholesterol, [...] WILL NOT BE REPOR GAYATRI. Not Available [facility] (Lab) [address] [place], [address], 08/06/2024 19:38:53 08/07/19 25 08/06/2024 COMPR EHENS SENAIT METAB OLIC PANEL sodium 134 mmol/ L 137-14 5 low Not Available [facility] (Lab) [address] [place], [address], 08/06/2024 19:38:56 08/07/19 25 08/06/2024 COMPR EHENS SENAIT METAB OLIC PANEL potassium 4.6 mmol/ L 3.5-5. 1 Not Available [facility] (Lab) [address] [place], [address], 08/06/2024 19:38:56 08/07/19 25 08/06/2024 COMPR EHENS SENAIT METAB OLIC PANEL chloride 103 mmol/ L 98-107 Not Available [facility] (Lab) [address] [place], [address], 08/06/2024 19:38:56 08/07/19 25 08/06/2024 COMPR EHENS SENAIT METAB OLIC PANEL carbon dioxide 26 mmol/ L 22-30 Not Available [facility] (Lab) [address] [place], [address], 08/06/2024 19:38:56 08/07/19 25 08/06/2024 COMPR EHENS SENAIT METAB OLIC PANEL anion gap 9.6 mmol/ L 14-22 low Not Available [facility] (Lab) [address] [place], [address], 08/06/2024 19:38:56 08/07/19 25 08/06/2024 COMPR EHENS SENAIT METAB OLIC PANEL glucose 74 mg/dL 70-99 Not Available [facility] (Lab) [address] [facility] [place], [address], 08/06/2024 19:38:56 08/07/1908/06/2024 COMPR EHENS SENAIT METAB OLIC PANEL BUN 9 mg/dL 8-19 Not Available [facility] (Lab) [address] [place], [address], 08/06/2024 19:38:56 08/07/1908/06/2024 COMPR EHENS SENAIT METAB OLIC PANEL creatinine 0.66 mg/dL 0.66-1 .25 Not Available [facility] (Lab) [address] [place], [address], 08/06/2024 19:38:56 08/07/1908/06/2024 COMPR EHENS SENAIT METAB OLIC PANEL GFR >60 Refer ence Range : Nallen ge GFR Healt hy Adult : >60 [...] or ethni c subgr oups, such as [facility] nics. Outsi de the valid ated [...] calcu lator is avail able on the [facility] websi te: https ://letty higgins.kid leidy.o rg/pr ofess ional s/kdo qi/gf r_cal culat or Not Available [facility] (Lab) [address] [place], [address], 08/06/2024 19:38:56 08/07/19 25 08/06/2024 COMPR EHENS SENAIT METAB OLIC PANEL alkaline phosphatase 101 U/L 38-126 Not Available [facility] (Lab) [address] [place], [address], 08/06/2024 19:38:56 08/07/19 25 08/06/2024 COMPR EHENS SENAIT METAB OLIC PANEL alanine aminotransfe rase 29 U/L 0-35 Not Available [facility] (Lab) [address] [place], [address], 08/06/2024 19:38:56 08/07/19 25 08/06/2024 COMPR EHENS SENAIT METAB OLIC PANEL aspartate aminotransfe rase 23 U/L 15-37 Not Available [facility] (Lab) [address] [place], [address], 08/06/2024 19:38:56 08/07/19 25 08/06/2024 COMPR EHENS SENAIT METAB OLIC PANEL bilirubin, total 0.60 mg/dL 0.20-1 .30 Not Available [facility] (Lab) [address] [place], [address], 08/06/2024 19:38:56 08/07/19 25 08/06/2024 COMPR EHENS SENAIT METAB OLIC PANEL calcium 10.2 mg/dL 8.4-10 .2 Not Available [facility] (Lab) [address] [place], [address], 08/06/2024 19:38:56 08/07/19 25 08/06/2024 COMPR EHENS SENAIT METAB OLIC PANEL total protein 6.9 g/dL 6.3-8. 2 Not Available [facility] (Lab) [address] [place], [address], 08/06/2024 19:38:56 08/07/19 25 08/06/2024 COMPR EHENS SENAIT METAB OLIC PANEL albumin 4.3 g/dL 3.4-5. 0 Not Available [facility] (Lab) [address] [place], [address], 08/06/2024 19:38:56 08/07/19 25 08/06/2024 COMPR EHENS SENAIT METAB OLIC PANEL globulin 2.6 g/dL 2.6-4. 2 Not Available [facility] (Lab) [address] [place], [address], 08/06/2024 19:38:56 08/07/19 25 08/06/2024 COMPR EHENS SENAIT METAB OLIC PANEL A/G ratio 1.7 ratio 1.0-2. 0 Not Available [facility] (Lab) [address] [place], [address], 08/06/2024 19:38:56 08/07/1908/06/2024 VITAM IN D 25-HY DROXY [id number] 32.7 NG/mL 30-100 Vitam in D Statu s: Defic ient: <20 ng/mL Insuf ficie nt: 20-29 ng/mL Suffi cient : 30-10 0 ng/mL Not Available [facility] (Lab) [address] [place], [address], 08/06/2024 19:59:54 08/07/1908/06/2024 TSH W/REF JAX FT4 TSH with reflex free T4 0.754 uIU/m L 0.465- 4.680 Not Available [facility] (Lab) [address] [place], [address], 08/06/2024 20:10:16 08/07/19 25 08/06/2024 HEMOG LOBIN A1C HA1C 4.8 % 4.0-6. 0 Diabe dorcas Eveliae sampson Crite mounika: <5.7% Consi stent with absen ce of diabe dorcas 5.7-6 .4% Consi stent with incre ased risk for diabe docras (pred iabet es) >OR=6 .5% Consi stent with diabe dorcas REFER ENCE: Diabe dorcas Care 2016, 39(Harvey ppl.1 ):s13 -s22 Not Available [facility] ([facility]) [address] [place], [address], 08/06/2024 20:29:17 01/31/20 25 01/30/2025 US, abdom en + pelvi s No observ ation record ed. [facility] [address] [facility] [address], [place], [address], 01/31/2025 08:43:33 Result Notes None recorded. Problems Name Problem SNOMED Code Status Onset Date Resolution Date Notes Provider Name and Address Organization Details Recorded Time Hypertensive disorder 26286581 Active 2018 Not Available [facility] 3 20:59:55 Obesity 781171778 Active 2018 Not Available [facility] 3 20:59:55 Vitamin D deficiency 62924204 Active 2018 Not Available [facility] 3 20:59:54 Obstructive sleep apnea syndrome 23820749 Active 2023 Mahendra Parks MD [address] [facility] [place], [address] , [employer] 4 09:38:47 Notes:Medical History: Early REM onset Obesity with moderate OSAHS, AHI = 16, 08/03/23, on autoCPAP c/o IVRC Hypertension Hepatic hemangiomas PLMD Vit D deficiency Right plantar fasciitis Right calcaneal spur Procedure History: Cholecystectomy 2010 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 Procedures Surgical History Date Name Laterality Status Provider Name and Address Organization Details Recorded Time 04/03/19 24 Date of Last Pap Smear completed Lucrecia Kenney RN [employer] 07/21/2023 10:05:19 04/03/19 14 Gallbladder Surgery completed Not Available [facility] 06/01/2022 20:58:20 Imaging Results None recorded. Procedure Notes None recorded. Medical Equipment None Reported. Allergies Allergen ID Allergen Name Allergen Category Reaction Reaction Severity Criticality Documentation Date Start Date Code Code System Note Provider Name and Address Organization Details Recorded Time 36091 grape flavor food,medi cation swelling severe Not available 06/01/2022 Not Available [facility] 21:01:57 Medications Name Sig Start Date Stop [...] 1 TABLET BY MOUTH EVERY DAY DIRECTED 04/19 /2024 completed Not Available Not Available Not Available [...] days. 11/13 completed PA not approved by insuranc e Not Available Not Available Not Available [...] and Address Organization Details Last Updated DateTime 5 162.56 cm 38.8 kg/m2 986361. 93 g 97.6 [degF] 96 % 96 % 69 /min 130/80 mm[Hg] Lorraine Yanez RN [place] [facility] [employer] 5 10:55:51 Date Recorded Body height Body mass index (BMI) Body weight Body temperature Oxygen saturation Oxygen saturation in Arterial blood by Pulse oximetry Heart rate Systolic And Diastolic Provider Name and Address Organization Details Last Updated DateTime 5 162.56 cm 37.5 kg/m2 67277.8 9 g 97.6 [degF] 99 % 99 % 70 /min 130/84 mm[Hg] Lorraine Yanez RN [facility] [employer] 10:08:45 Date Recorded Systolic And Diastolic Provider Name and Address Organization Details Last Updated DateTime 11/11/2024 136/86 mm[Hg] [employer] [address], [address], [place] [employer] [facility] [employer] 11/11/2024 15:02:35 Date Recorded Body height Body mass index (BMI) Body weight Body temperature Oxygen saturation Oxygen saturation in Arterial blood by Pulse oximetry Heart rate Provider Name and Address Organization Details Last Updated DateTime 162.56 cm 37.6 kg/m2 70976.7 8 g 97.9 [degF] 99 % 99 % 73 /min Lorraine Yanez RN [facility] [email or web address] 14:53:57 Date Recorded Systolic And Diastolic Provider Name and Address Organization Details Last Updated DateTime 01/21/2025 134/80 mm[Hg] [employer] [address], [place], [address], [place] [employer] [facility] [employer] 01/21/2025 10:04:29 Date Recorded Body height Body mass index (BMI) Body weight Body temperature Oxygen saturation Oxygen saturation in Arterial blood by Pulse oximetry Heart rate Provider Name and Address Organization Details Last Updated DateTime 162.56 cm 35.4 kg/m2 79546.7 8 g 97.4 [degF] 99 % 99 % 67 /min Lorraine Yanez RN [facility] [email or web address] 09:56:44 Social History Question Answer Notes LastModified by Organization Details LastModified Time Tobacco Smoking Status Never Smoker Not Available [facility] 06/01/2022 20:58:14 Do You Have An Advance Directive? No [id number] Information not available 06/01/2022 Do You Wear A Helmet When Biking? Yes [id number] Information not available 06/01/2022 What Is Your Level Of Caffeine Consumption? Occasional One Coffee Maybe Twice A Week Information not available 06/25/2024 In The 14 Days Before Symptom Onset, Have You Had Close Contact With A Laboratory-confi rmed COVID-19 While That Case Was Ill? No [id number] Information not available 06/01/2022 In The 14 Days Before Symptom Onset, Have You Had Close Contact With A Person Who Is Under Investigation For COVID-19 While That Person Was Ill? No MIGRATION.0301 [id number] Information not available 06/01/2022 What Type Of Diet Are You Following? REGULAR MIGRATION.0301 656101 Information not available 06/01/2022 Do You Have [...] Your Family Or Social Situation? No MIGRATION.0301 563554 Information not available 06/01/2022 What Is The Fluoride Status Of Your Home? Unknown MIGRATION.0301 130461 Information not available 06/01/2022 Are There Any Guns Present In Your Home? No MIGRATION.0301 832746 Information not available 06/01/2022 Do You Have A Humidifier? No Information not available 08/16/2023 Do You Use Insect Repellent Routinely? Yes MIGRATION.0301 284320 Information not available 06/01/2022 Where Do You Live? [place]House MIGRATION.0301 539014 Information not available 06/01/2022 Do You Have A Medical Power Of It Solutions Sales Consultant? No MIGRATION.0301 612802 Information not available 06/01/2022 Do You Have Moisture Problems In Your Home? No Information not available 08/16/2023 What Was The Date Of Your Most Recent Tobacco Screening? 08/16/2023 Information not available 08/16/2023 How Many Children Do You Have? 5 Information not available 07/21/2023 Have You Ever Been Counseled For Unhealthy Alcohol Use? No MIGRATION.0301 248628 Information not available 06/01/2022 Do You Have Any Pets? Yes MIGRATION.0301 277873 Information not available 06/01/2022 What Is Your Relationship Status? MIGRATION.0301 266100 Information not available 06/01/2022 Do You Use Your Seat Belt Or Car Seat Routinely? Yes MIGRATION.0301 624691 Information not available 06/01/2022 Do You Have Smoke And Carbon Monoxide Detectors In Your Home? Yes MIGRATION.0301 304221 Information not available 06/01/2022 Are You Passively Exposed To Smoke? No MIGRATION.0301 038520 Information not available 06/01/2022 Are There Any Smokers In Your House? No MIGRATION.0301 033641 Information not available 06/01/2022 Do You Participate In Social Media? Yes MIGRATION.0301 833156 Information not available 06/01/2022 What Types Of Sporting Activities Do You Participate In? Walk,tredmill, Stair Master Information not available 07/21/2023 Do You Use Sunscreen Routinely? Yes MIGRATION.0301 051904 Information not available 06/01/2022 Has Tobacco Cessation Counseling Been Provided? No MIGRATION.0301 501431 Information not available 06/01/2022 Have You Recently Traveled Abroad? No MIGRATION.0301 787549 Information not available 06/01/2022 Are You Currently In School? No MIGRATION.0301 579228 Information not available 06/01/2022 Do You Have Any Dietary Restrictions? No MIGRATION.0301 526624 Information not available 06/01/2022 Sex: Female Functional Status Question Answer Note LastModified by Organizat ion Details LastModified Time Do you use any illicit or recreational drugs? No MIGRATION.78651 97270 Information not available 06/01/2022 Do you or have you ever used any other forms of tobacco or nicotine? No MIGRATION.05826 63553 Information not available 06/01/2022 What is your level of alcohol consumption? Occasional MIGRATION.02618 33353 Information not available 06/01/2022 Have you been exposed to chemicals or toxins? 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 Occasional Information not available 07/21/2023 Mental Status Question Answer Note LastModified by Organizat ion Details LastModified Time Do you feel stressed (tense, restless, nervous, or anxious, or unable to sleep at night)? [id number] MIGRATION.[id number] 6 Information not available 06/01/2022 Family History Relationship Description Onset Age of this Age Resolved Age Notes LastModified by Organization Details LastModified Time Mother Diabetes mellitus MIGRATION.915 [id number] Not available 06/01/2022 20:58:22 Mother Hypertensive disorder 54 MIGRATION.169 1713516 Not available 06/01/2022 20:58:22 Father Hypertensive disorder DAD PASSED IN 1997 MIGRATION.728 [id number] Not available 06/01/2022 20:58:22 Mother Obstructive sleep [...] mcg/0.3 mL dose 11/19/2020 completed Not Available [facility] 21:01:53 Past Encounters Encounter ID Performer Location Encounter Start Date Encounter Closed Date Diagnosis/Indication Diagnosis SNOMED-CT Code Diagnosis ICD10 Code Diagnosis IMO Codes Diagnosis Note [id number] Dread Sawyer MD [address] [address] 06/17/2021 00:00:00 06/17/2021 17:09:06 [id number] Dread Sawyer MD [address] [address] 08/05/2021 00:00:00 08/05/2021 10:54:37 [id number] Dread Sawyer MD [address] [address] 07/21/2023 09:48:21 07/21/2023 10:23:24 Essential hypertension 31300050 I10 Sleep disorder 40412307 G47.9 Sleep apnea 42239730 G47 .30 [id number] [facility]hendra Parks [facility] [address] [address] 08/16/2023 08:45:36 08/17/2023 08:46:17 Obstructive sleep apnea syndrome 95957153 G47.33 G47.36 G47.61 [id number] Dread Sawyer MD [address] [address] 10/20/2023 09:50:44 10/20/2023 10:35:26 Hypertensive disorder 96404629 I10 Obesity 975579520 E66.9 [id number] Mahendra Parks MD [facility] Pulmonolo gy [place] [address] [address] 11/06/2023 09:31:42 11/06/2023 15:30:03 Obstructive sleep apnea syndrome 13450798 G47.33 Periodic l imb movement disorder 750296839 G47.61 D50.8 E83.42 Paroxysmal atrial flutter 786680013 I48.92 [id number] Dread Sawyer MD [address] [address] 06/25/2024 12:09:22 06/25/2024 12:30:46 Adult health examination 124395622 Z00.00 Vitamin D deficiency 347 13513 E55.9 Obesity 220364808 E66.9 Obstructiv e sleep apnea syndrome 82104914 G47.33 Hypertensive disorder 38 608668 I10 [id number] Dread Sawyer MD [address] [address] 08/06/2024 10:25:35 08/06/2024 11:07:32 [id number] Dread Sawyer MD [address] [address] 08/14/2024 10:22:12 08/14/2024 11:03:39 Vitamin D deficiency 24879261 E55.9 Obesity 458157459 E66.9 Obstructiv e sleep apnea syndrome 35694713 G47.33 Hypertensive disorder 38 408880 I10 [id number] Dread Sawyer MD [address] [address] 09/11/2024 09:58:15 09/11/2024 10:19:26 Vitamin D deficiency 93323671 E55.9 Hypertensive disorder 38 669951 I10 Obesity 030543251 E66.9 Obstructiv e sleep apnea syndrome 22074648 G47.33 [id number] Dread Sawyer MD [address] [place] [address] 11/11/2024 14:46:25 11/11/2024 15:01:31 Hypertensive disorder 28791037 I10 Vitamin D deficiency 347 76928 E55.9 Obesity 035387231 E66.9 Obstructiv e sleep apnea syndrome 79271971 G47.33 [id number] Dread Sawyer MD [facility] [address] [place] [address] 01/21/2025 09:50:51 01/21/2025 10:04:22 Obstructive sleep apnea syndrome 85655259 G47.33 Hypertensive disorder 38 889694 I10 Vitamin D deficiency 347 87227 E55.9 Obesity 917988586 E66.9 Health Concerns Section Related Observation LastModified by Organization Detai ls LastModified Time None Recorded Concern Status LastModified by Organization Details LastModified Time None Recorded Advance Directives Directive N: Payers Insurance Date Sequence Insurance Name Policy Number Policy David Covered Member ID David Member ID Guarantor Name 11/11/2024 1 [facility] (MEDICAID HMO) [id number] Erinn Miramontes [id number] Erinn Miramontes 01/18/2025 1 [facility] [id number] Erinn Miramontes [id number] Erinn Miramontes Notes Date Note Type Note [...] heart rate/palpitation concern. Dread Sawyer MD [address] [facility], [place] [address], [place], [address], [facility] 08/14/2024 11:03:53 09/11/2024 text/html Pt is here for f/u on her meds and chronic conditions. Doing overall well. Denies any problem with meds. Happy with her results. So far, 8 lbs wt loss on it. Pt has OSMIN and is on Cpap for it. Pt denies any issue with her heart rate/palpitation concern. Dread Sawyer MD [address], [place], [address], [employer] 09/11/2024 10:20:12 11/11/2024 text/html Pt is here for f/u on her meds and chronic conditions. Doing overall well. Denies any problem with meds. Happy with her results. So far, 7 lbs wt loss on it. Pt has OSMIN and is on Cpap for it. Pt denies any issue with her heart rate/palpitation concern. Dread Sawyer MD [address], [place], [address], [employer] 11/11/2024 15:03:48 01/21/2025 text/html Pt is here [...] concern. Dread Sawyer MD [address], [place], [address], [employer] 01/21/2025 10:06:18 OBGyn Episode No OBEpisode recorded.
--- OUTSIDE RECORDS SUMMARY | 2025-02-06 16:21 | XMS_ITS | Clinical Summary ---
Author Organization [facility] Address [address] [place] [address] Care Team Providers Care Balance Wheel Screw Hole Tapper Name Role Phone Unavailable Primary Care Provider [...]
== END 2025-02-06 07:18 | disposition home or self-care (01) ==
LOC: ANHLAB 07:19
PROVIDERS: Visit Provider Obstetrics & Gynecology
DX: O20.0 Threatened abortion (principal)
CPT/HCPCS: 36415; 84702

== ENCOUNTER 2025-02-07 08:40 | Outpatient (CLI) | payer OTHER, SELFPAY ==
--- OUTSIDE RECORDS SUMMARY | 2025-02-07 09:01 | XMS_ITS | Clinical Summary ---
Author Organization [facility] Address [address] [place] [address] Care Team Providers Care General Cargo Clerk Name Role Phone Unavailable Primary Care Provider [...]
[2025-02-07 10:24] LABS: Beta HCG Quantitative 2104.60 mIU/ML
== END 2025-02-07 08:41 | disposition home or self-care (01) ==
LOC: ANHLAB 08:41
PROVIDERS: Visit Provider Obstetrics & Gynecology
DX: O20.0 Threatened abortion (principal); Z3A.00 Weeks of gestation of pregnancy not specified
CPT/HCPCS: 36415; 84702

== ENCOUNTER 2025-02-20 09:43 | Outpatient (CLI) | payer OTHER, SELFPAY ==
--- OUTSIDE RECORDS SUMMARY | 2025-02-20 11:22 | XMS_ITS | Data Portability ---
Author Organization [facility] Address [address] [place] [address] Assessment Encounter Date Assessment Date Assessment LastModified [...] provider referral 2022 023 [email or web address] Mesha Bauer PROCEDURES ANALYST, [address] [facility] , [address], [address], 13:58:00 Procedures None recorded. Surgeries None recorded. Imaging None recorded. Medication Orders None recorded. Patient TargetsNo targets recorded. Patient InstructionsNo instructions recorded. Reason for Referral Primary Care Provider Referr al for Hypertensive disorder Referring Physician: Meli Penny, NURSERY NURSE, Encounter Date: 03/29/2023 Results Created Date Observation [...] nathalie: Gio Fernandez Colle cted: 03/29 1707 PROCEDURES ANALYST Order ing Locat ion: [place] Patho logy [...] as clini radha petersen nted. Not Available [facility] (Lab) [address], [place], [address], 03/31/2023 22:01:42 03/29/20 23 03/29/2023 TRICH OMONA S VAGIN BENNY (RRNA ) trichomonas vaginalis ribosomal RNA (rrna) Negati ve negati ve Not Available [facility] (Lab) [address], [place], [address], 03/31/2023 22:01:43 03/29/20 23 03/29/2023 CT/GC (ERIC) , THINP REP VIAL chlamydia trachomatis, PCR Negati ve negati ve Not Available [facility] (Lab) [address] [place], [address], 03/31/2023 22:01:43 03/29/20 23 03/29/2023 CT/GC (ERIC) , THINP REP VIAL neisseria gonorrhoeae, PCR Negati ve negati ve Not Available [facility] (Lab) [address] [place], [address], 03/31/2023 22:01:43 Result Notes None recorded. Procedures Surgical History Date Name Laterality Status Provider Name and Address Organization Details Recorded Time Laparoscopy completed Lisa Murcia [facility] 03/29/2023 16:24:24 Imaging Results None recorded. [...] Address Organization Details Last Updated DateTime 03/29/2023 430570.86 g 48.1 kg/m2 162.56 cm 164/110 mm[Hg] Lisa Navarro [facility] 03/29/2023 16:29:24 Social History Question Answer Notes LastModified by Organizat ion Details LastModified Time Tobacco Smoking Status Never Smoker Lisawatson Navarro [facility] 03/29/2023 16:26:22 Are You Blind Or [...] Or The Highest Degree You Have Received? 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 No Information not available 03/29/2023 What is your exercise level? Occasional Information not available 03/29/2023 Mental Status Question Answer Note LastModified by Organization D etails LastModified Time Do you feel stressed (tense, restless, nervous, or anxious, or unable to sleep at night)? [id number] Information not available 03/29/2023 Family History Relationship [...] ICD10 Code Diagnosis IMO Codes Diagnosis Note [id number] Meli Penny , [facility] [address] [address] 03/29/2023 16:20:41 03/29/2023 16:57:18 Gynecologic examination 46289812 Z01.419 Take Calcium with Vitamin D 1200mg [...] Labs PCP will order Hypertensive disorder 38 264225 I10 ED precaution s reviewed.C ontinue taking BP medication s until get into see PCP.Two options given that take her insurance. Risks of HTN and organ perfusion/ failure acute/vessel specialist cass.Unders tanding verbalized .Agreeable to plan of care. Contracept ion care management [id number] Z30.9 Mirena IUD expires middle of April [...] David Member ID Guarantor Name 04/03/2023 1 [employer] [facility] (MEDICAID HMO) [id number] Erinn Miramontes [id number] Erinn Miramontes 03/15/2023 1 [facility] - DOS ON OR AFTER 20 (MEDICAID REPLACEMENT - HMO) Erinn Miramontes [id number] Erinn Miramontes Notes Date Note Type Note [...] smears. Meli Penny, AD[facility] [address], [place], [address], [facility] 03/29/2023 16:54:56 OBGyn Episode Ob Episode Information Episode Created Date Number of Fetuses Patient Bloodtype Patient rh Status Prepregnancy Weight lbs Domestic Partner Domestic Partner Phone Father Name Atomic Welder Status 03/29/20 23 1 CLOSED Fetus Data First Name Last Name Admitted to NICU Weight (g) Sex Living Outcome Pediatric Complications Fetus ID Race Codes Race Delivery Type 3883.65 4704 F Full Term 74974 Vaginal Delivery Yaw Calculation Initial Yaw Date [...] Domestic Partner Domestic Partner Phone Father Name Atomic Welder Status 03/29/20 23 1 CLOSED Fetus Data First Name Last Name Admitted to NICU Weight (g) Sex Living Outcome Pediatric Complications Fetus ID Race Codes Race Delivery Type 2494.75 6 F Prematur e [address]51 Vaginal Delivery Yaw Calculation Initial Yaw Date [...] Domestic Partner Domestic Partner Phone Father Name Atomic Welder Status 03/29/20 23 1 CLOSED Fetus Data First Name Last Name Admitted to NICU Weight (g) Sex Living Outcome Pediatric Complications Fetus ID Race Codes Race Delivery Type 2352.78 1704 F Prematur e [address] Vaginal Delivery Yaw Calculation Initial Yaw Date [...] Domestic Partner Domestic Partner Phone Father Name Atomic Welder Status 03/29/20 23 1 CLOSED Fetus Data First Name Last Name Admitted to NICU Weight (g) Sex Living Outcome Pediatric Complications Fetus ID Race Codes Race Delivery Type 3628.73 6 M Full Term [address]9685 Vaginal Delivery Yaw Calculation Initial Yaw Date [...]
== END 2025-02-20 09:44 | disposition home or self-care (01) ==
LOC: ANHLAB 09:45
PROVIDERS: Visit Provider Obstetrics & Gynecology
DX: O03.9 Complete or unspecified spontaneous abortion without complication (principal); Z3A.00 Weeks of gestation of pregnancy not specified
CPT/HCPCS: 36415; 84702

== ENCOUNTER 2025-02-24 15:00 | Outpatient (CLI) | payer OTHER, SELFPAY ==
--- OUTSIDE RECORDS SUMMARY | 2025-02-24 17:40 | XMS_ITS | Data Portability ---
Author Organization [facility] Address [address] [place] [address] Assessment Encounter Date Assessment Date Assessment LastModified [...] provider referral 2022 023 [email or web address] Mesha Bauer SENIOR SALES DIRECTOR, [address] [facility] , [address], [address], 4 13:58:00 Procedures None recorded. Surgeries None recorded. Imaging None recorded. Medication Orders None recorded. Patient TargetsNo targets recorded. Patient InstructionsNo instructions recorded. Reason for Referral Primary Care Provider Referr al for Hypertensive disorder Referring Physician: Meli Penny, AGRICULTURAL EQUIPMENT TEST ENGINEER, Encounter Date: 03/29/2023 Results Created Date Observation [...] nathalie: Gio Fernandez Colle cted: 03/29 1707 SENIOR SALES DIRECTOR Order ing Locat ion: [place] Patho logy [...] as clini radha petersen nted. Not Available [facility] (Lab) [address] [facility], [place], [address], 03/31/2023 22:01:42 03/29/20 23 03/29/2023 TRICH OMONA S VAGIN BENNY (RRNA ) trichomonas vaginalis ribosomal RNA (rrna) Negati ve negati ve Not Available [facility] (Lab) [address] [facility], [place], [address], 03/31/2023 22:01:43 03/29/20 23 03/29/2023 CT/GC (ERIC) , THINP REP VIAL chlamydia trachomatis, PCR Negati ve negati ve Not Available [facility] (Lab) [address] [place], [address], 03/31/2023 22:01:43 03/29/20 23 03/29/2023 CT/GC (ERIC) , THINP REP VIAL neisseria gonorrhoeae, PCR Negati ve negati ve Not Available [facility] (Lab) [address] [place], [address], 03/31/2023 22:01:43 Result Notes None recorded. Procedures Surgical History Date Name Laterality Status Provider Name and Address Organization Details Recorded Time Laparoscopy completed Lisa Murcia [facility] 03/29/2023 16:24:24 Imaging Results None recorded. [...] Address Organization Details Last Updated DateTime 03/29/2023 726963.86 g 48.1 kg/m2 162.56 cm 164/110 mm[Hg] Lisa Navarro [facility] 03/29/2023 16:29:24 Social History Question Answer Notes LastModified by Organizat ion Details LastModified Time Tobacco Smoking Status Never Smoker Lisawatson Navarro [facility] 03/29/2023 16:26:22 Are You Blind [...] Or The Highest Degree You Have Received? 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 No Information not available 03/29/2023 What is your exercise level? Occasional Information not available 03/29/2023 Mental Status Question Answer Note LastModified by Organization D etails LastModified Time Do you feel stressed (tense, restless, nervous, or anxious, or unable to sleep at night)? GA42855-3 Information not available 03/29/2023 Family History Relationship [...] ICD10 Code Diagnosis IMO Codes Diagnosis Note [id number] Meli Penny , [facility] [address] [address] 03/29/2023 16:20:41 03/29/2023 16:57:18 Gynecologic examination 39002009 Z01.419 Take Calcium with Vitamin D 1200mg [...] Labs PCP will order Hypertensive disorder 38 778354 I10 ED precaution s reviewed.C ontinue taking BP medication s until get into see PCP.Two options given that take her insurance. Risks of HTN and organ perfusion/ failure acute/news reporter cass.Unders tanding verbalized .Agreeable to plan of care. Contracept ion care management [id number] Z30.9 Mirena IUD expires middle of April [...] David Member ID Guarantor Name 04/03/2023 1 [employer] [facility] (MEDICAID HMO) [id number] Erinn Miramontes [id number] Erinn Miramontes 03/15/2023 1 [facility] - DOS ON OR AFTER 20 (MEDICAID REPLACEMENT - HMO) Erinn Miramontes [id number] Erinn Miramontes Notes Date Note Type Note [...] smears. Meli Penny, ADAM-BC [address], [place], [address], [facility] 03/29/2023 16:54:56 OBGyn Episode Ob Episode Information Episode Created Date Number of Fetuses Patient Bloodtype Patient rh Status Prepregnancy Weight lbs Domestic Partner Domestic Partner Phone Father Name Scrap Charger Status 03/29/20 23 1 CLOSED Fetus Data First Name Last Name Admitted to NICU Weight (g) Sex Living Outcome Pediatric Complications Fetus ID Race Codes Race Delivery Type 3883.65 4704 F Full Term [address] Vaginal Delivery Yaw Calculation Initial Yaw Date [...] Domestic Partner Domestic Partner Phone Father Name Scrap Charger Status 03/29/20 23 1 CLOSED Fetus Data First Name Last Name Admitted to NICU Weight (g) Sex Living Outcome Pediatric Complications Fetus ID Race Codes Race Delivery Type 2494.75 6 F Prematur [place] [address] Vaginal Delivery Yaw Calculation Initial Yaw Date [...] Domestic Partner Domestic Partner Phone Father Name Scrap Charger Status 03/29/20 23 1 CLOSED Fetus Data First Name Last Name Admitted to NICU Weight (g) Sex Living Outcome Pediatric Complications Fetus ID Race Codes Race Delivery Type 2352.78 1704 F Prematur e [address] Vaginal Delivery Yaw Calculation Initial Yaw Date [...] Domestic Partner Domestic Partner Phone Father Name Scrap Charger Status 03/29/20 23 1 CLOSED Fetus Data First Name Last Name Admitted to NICU Weight (g) Sex Living Outcome Pediatric Complications Fetus ID Race Codes Race Delivery Type 3628.73 6 M Full Term [address] Vaginal Delivery Yaw Calculation Initial Yaw Date [...]
--- OUTSIDE RECORDS SUMMARY | 2025-02-24 17:40 | XMS_ITS | Data Portability ---
Author Organization [place] - [facility], Main Office Address [address] [place] [address] Care Team Providers Care Hoop Puncher Name Role Phone IVANA DREAD Primary Care [...] in 1 month. Annual labs in 06/26. [email or web address] Not available 08/14/2024 11:02:33 09/11/2024 09/11/2024 37 [...] in 2 months. Annual labs in 06/26. [email or web address] Not available 09/11/2024 10:19:16 11/11/2024 11/11/2024 37 [...] in 2 months. Annual labs in 06/26. [email or web address] Not available 11/11/2024 14:57:47 01/21/2025 01/21/2025 38 [...] in 2 months. Annual labs in 06/26. [email or web address] Not available 01/21/2025 10:05:21 Plan of Treatment Reminders Order Date Submit Date Provider Last Modified By Organization Details Last Modified Time Details Appointments Any 15 2024 02:30P M Dread Sawyer MD Not available Not available Not available Lab None recorded. Referral None recorded. Procedures None recorded. Surgeries None recorded. Imaging None recorded. Medication Orders phentermi ne 30 mg capsule 2024 [email or web address] [facility] #05683, [address], [id number], 01/21/2025 10:01:40 Zepbound 2.5 mg/0.5 mL subcutane ous pen injector 2024 [facility] #50668, [address], [id number], 01/21/2025 10:02:37 amlodipin e 5 mg tablet 2024 [facility], [address], [id number], 01/21/2025 10:01:03 metoprolo l succinate ER 25 mg tablet,ex tended release 24 hr 2024 [facility], [address], [id number], 01/21/2025 10:01:05 ergocalci ferol (vitamin D2) 1,250 mcg (50,000 unit) capsule 2024 [facility], [address], [id number], 01/21/2025 10:01:02 phentermi ne 30 mg capsule 2024 025 [facility] #03930, [address] [facility], [place], [place], [id number], 11/11/2024 15:00:16 Wegovy 0.25 mg/0.5 mL subcutane ous pen injector 2024 025 [email or web address] [id number] [facility] #26662, [address] [address], [place], [place], [id number], 11/13/2024 09:32:14 amlodipin e 5 mg tablet 2024 [facility] #97060, [address], [id number], 11/11/2024 15:00:12 metoprolo l succinate ER 25 mg tablet,ex tended release 24 hr 2024 025 [facility] #37541, [address], [id number], 11/11/2024 15:00:13 ergocalci ferol (vitamin D2) 1,250 mcg (50,000 unit) capsule 2024 025 [facility] #61381, [address] [facility], [place], [place], [id number], 11/11/2024 15:00:13 phentermi ne 15 mg capsule 2024 025 [email or web address] [facility] #13057, [address], [id number], 11/11/2024 15:03:00 amlodipin e 5 mg tablet 2024 025 [facility] #98259, [address] [facility], [place], [place], [id number], 09/11/2024 10:17:26 metoprolo l succinate ER 25 mg tablet,ex tended release 24 hr [email or web address] [facility] #05093, [address] [facility], [place], [place], [id number], 09/11/2024 10:17:53 ergocalci ferol (vitamin D2) 1,250 mcg (50,000 unit) capsule 2024 025 [facility] #28381, [address] [place] [address], [id number], 09/11/2024 10:17:25 phentermi ne 15 mg capsule 2024 025 [email or web address] [facility] #02669, [address] [place] [address], [id number], 11/11/2024 15:03:00 amlodipin e 5 mg tablet 2024 025 [facility] #82376, [address] [place] [address], [id number], 08/14/2024 11:01:25 metoprolo l succinate ER 25 mg tablet,ex tended release 24 hr 2024 025 [facility] #79689, [address] [place] [address], [id number], 08/14/2024 11:01:25 ergocalci ferol (vitamin D2) 1,250 mcg (50,000 unit) capsule 2024 025 [facility] #74595, [address] [place] [address], [id number], 08/14/2024 11:01:25 Patient TargetsNo targets recorded. Patient Instructions Encounter Date Encounter Id Patient Instructions Last Modified By Organization Details Last Modified Time 08/14/2024 [id number] When You Want to Lose Weight: Care Instructions [email or web address] Not available 08/14/2024 11:01:18 09/11/2024 [id number] When You Want to Lose Weight: Care Instructions [email or web address] Not available 09/11/2024 10:17:19 11/11/2024 [id number] When You Want to Lose Weight: Care Instructions Not available 11/11/2024 15:00:01 01/21/2025 [id number] When You Want to Lose Weight: Care Instructions Not available 01/21/2025 10:00:54 Reason for Referral None Reported. Results Created Date Observation Date Name Description Value Unit Range Abnormal Flag Note LastModifiedBy Organization Detail LastModifiedTime 08/07/1908/06/2024 CBC/C OMPLE TE BLD COUNT W/DIF F white blood cells 7.1 x10'3 /uL 4.2-10 .8 Not Available [facility] (Lab) [address] [place], [address], 08/06/2024 19:12:02 08/07/19 25 08/06/2024 CBC/C OMPLE TE BLD COUNT W/DIF F red blood cells 4.34 x10'6 /uL 3.80-5 .20 Not Available [facility] (Lab) [address] [place], [address], 08/06/2024 19:12:02 08/07/19 25 08/06/2024 CBC/C OMPLE TE BLD COUNT W/DIF F hemoglobin 13.1 g/dL 12.0-1 5.6 Not Available [facility] (Lab) [address] [place], [address], 08/06/2024 19:12:02 08/07/19 25 08/06/2024 CBC/C OMPLE TE BLD COUNT W/DIF F hematocrit 40.0 % 35.7-4 5.7 Not Available [facility] (Lab) [address] [place], [address], 08/06/2024 19:12:02 08/07/19 25 08/06/2024 CBC/C OMPLE TE BLD COUNT W/DIF F mean red cell volume 92.2 fL 82.0-9 9.0 Not Available [facility] (Lab) [address] [place], [address], 08/06/2024 19:12:02 08/07/19 25 08/06/2024 CBC/C OMPLE TE BLD COUNT W/DIF F mean red cell hemoglobin 30.2 pg 27.0-3 3.0 Not Available [facility] (Lab) [address] [place], [address], 08/06/2024 19:12:02 08/07/19 25 08/06/2024 CBC/C OMPLE TE BLD COUNT W/DIF F mean RBC HGB concentratio n 32.8 g/dL 31.0-3 6.0 Not Available [facility] (Lab) [address] [place], [address], 08/06/2024 19:12:02 08/07/1908/06/2024 CBC/C OMPLE TE BLD COUNT W/DIF F red cell distribution width 13.0 % 11.8-1 5.5 Not Available [facility] (Lab) [address] [place], [address], 08/06/2024 19:12:02 08/07/1908/06/2024 CBC/C OMPLE TE BLD COUNT W/DIF F platelets 314 x10'3 /uL 150-40 0 Not Available [facility] (Lab) [address] [facility] [place], [address], 08/06/2024 19:12:02 08/07/19 25 08/06/2024 CBC/C OMPLE TE BLD COUNT W/DIF F mean platelet volume 9.3 fL 9.0-12 .4 Not Available [facility] (Lab) [address] [place], [address], 08/06/2024 19:12:02 08/07/1908/06/2024 CBC/C OMPLE TE BLD COUNT W/DIF F neutrophils 67.4 % 39.0-7 2.0 Not Available [facility] (Lab) [address] [place], [address], 08/06/2024 19:12:02 08/07/1908/06/2024 CBC/C OMPLE TE BLD COUNT W/DIF F lymphocytes 23.3 % 16.0-4 7.0 Not Available [facility] (Lab) [address] [place], [address], 08/06/2024 19:12:02 08/07/1908/06/2024 CBC/C OMPLE TE BLD COUNT W/DIF F monocytes 8.3 % 5.0-12 .0 Not Available [facility] (Lab) [address] [place], [address], 08/06/2024 19:12:02 08/07/1908/06/2024 CBC/C OMPLE TE BLD COUNT W/DIF F eosinophils 0.3 % 1.0-7. 0 low Not Available [facility] (Lab) [address] [place], [address], 08/06/2024 19:12:02 08/07/1908/06/2024 CBC/C OMPLE TE BLD COUNT W/DIF F basophils 0.4 % 0.0-2. 0 Not Available [facility] (Lab) [address] [place], [address], 08/06/2024 19:12:02 08/07/19 25 08/06/2024 CBC/C OMPLE TE BLD COUNT W/DIF F immature granulocytes 0.3 % 0.00-0 .50 Not Available [facility] (Lab) [address] [place], [address], 08/06/2024 19:12:02 08/07/1908/06/2024 CBC/C OMPLE TE BLD COUNT W/DIF F neutrophils, absolute count 4.78 x10'3 /uL 1.5-8. 0 Not Available [facility] (Lab) [address] [place], [address], 08/06/2024 19:12:02 08/07/1908/06/2024 CBC/C OMPLE TE BLD COUNT W/DIF F lymphocytes, absolute count 1.65 x10'3 /uL 1.07-3 .43 Not Available [facility] (Lab) [address] [place], [address], 08/06/2024 19:12:02 08/07/1908/06/2024 CBC/C OMPLE TE BLD COUNT W/DIF F monocytes, absolute count 0.59 x10'3 /uL 0.29-0 .99 Not Available [facility] (Lab) [address] [place], [address], 08/06/2024 19:12:02 08/07/1908/06/2024 CBC/C OMPLE TE BLD COUNT W/DIF F eosinophils, absolute count 0.02 x10'3 /uL 0.02-0 .53 Not Available [facility] (Lab) [address] [place], [address], 08/06/2024 19:12:02 08/07/1908/06/2024 CBC/C OMPLE TE BLD COUNT W/DIF F basophils, absolute count 0.03 x10'3 /uL 0.01-0 .08 Not Available [facility] (Lab) [address] [place], [address], 08/06/2024 19:12:02 08/07/1908/06/2024 CBC/C OMPLE TE BLD COUNT W/DIF F immature granulocytes ,absolute 0.02 x10'3 /uL 0.00-0 .05 Not Available [facility] (Lab) [address] [place], [address], 08/06/2024 19:12:02 08/07/19 25 08/06/2024 CBC/C OMPLE TE BLD COUNT W/DIF F nucleated red blood cells 0.0 % -0 Not Available [facility] (Lab) [address] [place], [address], 08/06/2024 19:12:02 08/07/19 25 08/06/2024 CBC/C OMPLE TE BLD COUNT W/DIF F NRBC# 0.00 x10'3 /uL Not Available [facility] (Lab) [address] [place], [address], 08/06/2024 19:12:02 08/07/19 25 08/06/2024 URINA LYSIS COMPL ETE/I RIS W/RFX color LIGHT- YELLOW Not Available [facility] (Lab) [address] [place], [address], 08/06/2024 19:19:12 08/07/19 25 08/06/2024 URINA LYSIS COMPL ETE/I RIS W/RFX appear TURBID abnormal Not Available [facility] (Lab) [address] [place], [address], 08/06/2024 19:19:12 08/07/19 25 08/06/2024 URINA LYSIS COMPL ETE/I RIS W/RFX specific gravity 1.013 1.001- 1.030 Not Available [facility] (Lab) [address] [place], [address], 08/06/2024 19:19:12 08/07/19 25 08/06/2024 URINA LYSIS COMPL ETE/I RIS W/RFX pH 6.5 pH_un its 5.0-9. 0 Not Available [facility] (Lab) [address] [place], [address], 08/06/2024 19:19:12 08/07/19 25 08/06/2024 URINA LYSIS COMPL ETE/I RIS W/RFX leukocytes 75 pili/u L negati ve- abnormal Not Available [facility] (Lab) [address] [place], [address], 08/06/2024 19:19:12 08/07/19 25 08/06/2024 URINA LYSIS COMPL ETE/I RIS W/RFX nitrite NEGATI VE negati ve- Not Available [facility] (Lab) [address] [place], [address], 08/06/2024 19:19:12 08/07/19 25 08/06/2024 URINA LYSIS COMPL ETE/I RIS W/RFX protein NEGATI VE mg/dL negati ve- Not Available [facility] (Lab) [address] [place], [address], 08/06/2024 19:19:12 08/07/19 25 08/06/2024 URINA LYSIS COMPL ETE/I RIS W/RFX glucose NORMAL mg/dL normal - Not Available [facility] (Lab) [address] [place], [address], 08/06/2024 19:19:12 08/07/19 25 08/06/2024 URINA LYSIS COMPL ETE/I RIS W/RFX ketones NEGATI VE mg/dL negati ve- Not Available [facility] (Lab) [address] [place], [address], 08/06/2024 19:19:12 08/07/19 25 08/06/2024 URINA LYSIS COMPL ETE/I RIS W/RFX urobilinogen NORMAL mg/dL normal - Not Available [facility] (Lab) [address] [place], [address], 08/06/2024 19:19:12 08/07/1908/06/2024 URINA LYSIS COMPL ETE/I RIS W/RFX bilirubin NEGATI VE mg/dL negati ve- Not Available [facility] (Lab) [address] [place], [address], 08/06/2024 19:19:12 08/07/19 25 08/06/2024 URINA LYSIS COMPL ETE/I RIS W/RFX blood 0.06 mg/dL negati ve- abnormal Not Available [facility] (Lab) [address] [place], [address], 08/06/2024 19:19:12 08/07/19 25 08/06/2024 URINA LYSIS COMPL ETE/I RIS W/RFX white blood cells 0-8 /i??h pfi?? 0-8 Not Available [facility] (Lab) [address] [place], [address], 08/06/2024 19:19:12 08/07/19 25 08/06/2024 URINA LYSIS COMPL ETE/I RIS W/RFX red blood cells 0-4 /i??h pfi?? 0-4 Not Available [facility] (Lab) [address] [facility] [place], [address], 08/06/2024 19:19:12 08/07/1908/06/2024 URINA LYSIS COMPL ETE/I RIS W/RFX bacteria NONE none seen- Not Available [facility] (Lab) [address] [place], [address], 08/06/2024 19:19:12 08/07/19 25 08/06/2024 URINA LYSIS COMPL ETE/I RIS W/RFX mucous OCCASI ONAL /i??l pfi?? none seen- abnormal Not Available [facility] (Lab) [address] [place], [address], 08/06/2024 19:19:12 08/07/1908/06/2024 URINA LYSIS COMPL ETE/I RIS W/RFX squamous epithelial FEW /i??l pfi?? abnormal Not Available [facility] (Lab) [address] [place], [address], 08/06/2024 19:19:12 08/07/19 25 08/06/2024 LIPID PANEL cholesterol 145 mg/dL 140-19 9 NIH NIKKI NSUS RECOM MENDA TION FOR BEENA STERO L: ADULT CHILD LOW RISK: <200 <170 BORDE RLINE : <200- 239 ----- HIGH RISK: >240 >200 Not Available [facility] (Lab) [address] [place], [address], 08/06/2024 19:38:53 08/07/1908/06/2024 LIPID PANEL triglyceride s 56 mg/dL 0-150 NIH NIKKI NSUS REPOR T RECOM MENDA TION FOR TRIGL YCERI PAOLA: ADULT CHILD LOW RISK: <150 ----- BODER LINE: 150-1 99 ----- HIGH RISK: >200 ----- Not Available [facility] (Lab) [address] [place], [address], 08/06/2024 19:38:53 08/07/19 25 08/06/2024 LIPID PANEL HDL cholesterol 49 mg/dL 40- Not Available [facility] (Lab) [address] [place], [address], 08/06/2024 19:38:53 08/07/1908/06/2024 LIPID PANEL LDL cholesterol, [...] WILL NOT BE REPOR GAYATRI. Not Available [facility] (Lab) [address] [place], [address], 08/06/2024 19:38:53 08/07/19 25 08/06/2024 COMPR EHENS SENAIT METAB OLIC PANEL sodium 134 mmol/ L 137-14 5 low Not Available [facility] (Lab) [address] [place], [address], 08/06/2024 19:38:56 08/07/19 25 08/06/2024 COMPR EHENS SENAIT METAB OLIC PANEL potassium 4.6 mmol/ L 3.5-5. 1 Not Available [facility] (Lab) [address] [place], [address], 08/06/2024 19:38:56 08/07/19 25 08/06/2024 COMPR EHENS SENAIT METAB OLIC PANEL chloride 103 mmol/ L 98-107 Not Available [facility] (Lab) [address] [place], [address], 08/06/2024 19:38:56 08/07/19 25 08/06/2024 COMPR EHENS SENAIT METAB OLIC PANEL carbon dioxide 26 mmol/ L 22-30 Not Available [facility] (Lab) [address] [place], [address], 08/06/2024 19:38:56 08/07/19 25 08/06/2024 COMPR EHENS SENAIT METAB OLIC PANEL anion gap 9.6 mmol/ L 14-22 low Not Available [facility] (Lab) [address] [place], [address], 08/06/2024 19:38:56 08/07/19 25 08/06/2024 COMPR EHENS SENAIT METAB OLIC PANEL glucose 74 mg/dL 70-99 Not Available [facility] (Lab) [address] [facility] [place], [address], 08/06/2024 19:38:56 08/07/1908/06/2024 COMPR EHENS SENAIT METAB OLIC PANEL BUN 9 mg/dL 8-19 Not Available [facility] (Lab) [address] [place], [address], 08/06/2024 19:38:56 08/07/1908/06/2024 COMPR EHENS SENAIT METAB OLIC PANEL creatinine 0.66 mg/dL 0.66-1 .25 Not Available [facility] (Lab) [address] [place], [address], 08/06/2024 19:38:56 08/07/1908/06/2024 COMPR EHENS SENAIT METAB OLIC PANEL GFR >60 Refer ence Range : [place] ge GFR Healt hy Adult : >60 [...] or ethni c subgr oups, such as [facility] nics. Outsi de the valid ated [...] calcu lator is avail able on the [facility] websi te: https ://letty higgins.kid leidy.o rg/pr ofess ional s/kdo qi/gf r_cal culat or Not Available [facility] (Lab) [address] [place], [address], 08/06/2024 19:38:56 08/07/19 25 08/06/2024 COMPR EHENS SENAIT METAB OLIC PANEL alkaline phosphatase 101 U/L 38-126 Not Available [facility] (Lab) [address] [place], [address], 08/06/2024 19:38:56 08/07/19 25 08/06/2024 COMPR EHENS SENAIT METAB OLIC PANEL alanine aminotransfe rase 29 U/L 0-35 Not Available [facility] (Lab) [address] [place], [address], 08/06/2024 19:38:56 08/07/19 25 08/06/2024 COMPR EHENS SENAIT METAB OLIC PANEL aspartate aminotransfe rase 23 U/L 15-37 Not Available [facility] (Lab) [address] [place], [address], 08/06/2024 19:38:56 08/07/19 25 08/06/2024 COMPR EHENS SENAIT METAB OLIC PANEL bilirubin, total 0.60 mg/dL 0.20-1 .30 Not Available [facility] (Lab) [address] [place], [address], 08/06/2024 19:38:56 08/07/19 25 08/06/2024 COMPR EHENS SENAIT METAB OLIC PANEL calcium 10.2 mg/dL 8.4-10 .2 Not Available [facility] (Lab) [address] [place], [address], 08/06/2024 19:38:56 08/07/19 25 08/06/2024 COMPR EHENS SENAIT METAB OLIC PANEL total protein 6.9 g/dL 6.3-8. 2 Not Available [facility] (Lab) [address] [place], [address], 08/06/2024 19:38:56 08/07/19 25 08/06/2024 COMPR EHENS SENAIT METAB OLIC PANEL albumin 4.3 g/dL 3.4-5. 0 Not Available [facility] (Lab) [address] [place], [address], 08/06/2024 19:38:56 08/07/19 25 08/06/2024 COMPR EHENS SENAIT METAB OLIC PANEL globulin 2.6 g/dL 2.6-4. 2 Not Available [facility] (Lab) [address] [place], [address], 08/06/2024 19:38:56 08/07/19 25 08/06/2024 COMPR EHENS SENAIT METAB OLIC PANEL A/G ratio 1.7 ratio 1.0-2. 0 Not Available [facility] (Lab) [address] [place], [address], 08/06/2024 19:38:56 08/07/1908/06/2024 VITAM IN D 25-HY DROXY [id number] 32.7 NG/mL 30-100 Vitam in D Statu s: Defic ient: <20 ng/mL Insuf ficie nt: 20-29 ng/mL Suffi cient : 30-10 0 ng/mL Not Available [facility] (Lab) [address] [place], [address], 08/06/2024 19:59:54 08/07/1908/06/2024 TSH W/REF JAX FT4 TSH with reflex free T4 0.754 uIU/m L 0.465- 4.680 Not Available [facility] (Lab) [address] [place], [address], 08/06/2024 20:10:16 08/07/19 25 08/06/2024 HEMOG LOBIN A1C HA1C 4.8 % 4.0-6. 0 Diabe dorcas Eveliae sampson Crite mounika: <5.7% Consi stent with absen ce of diabe dorcas 5.7-6 .4% Consi stent with incre ased risk for diabe dorcas (pred iabet es) >OR=6 .5% Consi stent with diabe dorcas REFER ENCE: Diabe dorcas Care 2016, 39(Harvey ppl.1 ):s13 -s22 Not Available [facility] ([facility]) [address] [place], [address], 08/06/2024 20:29:17 01/31/20 25 01/30/2025 US, abdom en + pelvi s No observ ation record ed. [facility] [address], [place], [address], 01/31/2025 08:43:33 Result Notes None recorded. Problems Name Problem SNOMED Code Status Onset Date Resolution Date Notes Provider Name and Address Organization Details Recorded Time Hypertensive disorder 94707362 Active 2018 Not Available [facility] 3 20:59:55 Obesity 667959187 Active 2018 Not Available [facility] 3 20:59:55 Vitamin D deficiency 36206517 Active 2018 Not Available [facility] 3 20:59:54 Obstructive sleep apnea syndrome 43367007 Active 2023 Mahendra Parks MD [address] [facility], [place], [address] , [facility] 4 09:38:47 Notes:Medical History: Early REM onset Obesity with moderate OSAHS, AHI = 16, 08/03/23, on autoCPAP c/o IVRC Hypertension Hepatic hemangiomas PLMD Vit D deficiency Right plantar fasciitis Right calcaneal spur Procedure History: Cholecystectomy 2010 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 Procedures Surgical History Date Name Laterality Status Provider Name and Address Organization Details Recorded Time 04/03/19 24 Date of Last Pap Smear completed Lucrecia Kenney RN [facility] 07/21/2023 10:05:19 04/03/19 14 Gallbladder Surgery completed Not Available [facility] 06/01/2022 20:58:20 Imaging Results None recorded. Procedure Notes None recorded. Medical Equipment None Reported. Allergies Allergen ID Allergen Name Allergen Category Reaction Reaction Severity Criticality Documentation Date Start Date Code Code System Note Provider Name and Address Organization Details Recorded Time 44096 grape flavor food,medi cation swelling severe Not available 06/01/2022 Not Available [facility] 21:01:57 Medications Name Sig Start Date Stop [...] (BMI) Body weight Body temperature Oxygen saturation Heart rate Systolic And Diastolic Provider Name and Address Organization Details Last Updated DateTime 5 162.56 cm 38.8 kg/m2 548439. 93 g 97.6 [degF] 96 % 69 /min 130/80 mm[Hg] Lorraine YanezRN [place] - [facility] 5 10:55:51 Date Recorded Body height Body mass index (BMI) Body weight Body temperature Oxygen saturation Heart rate Systolic And Diastolic Provider Name and Address Organization Details Last Updated DateTime 5 162.56 cm 37.5 kg/m2 47493.8 9 g 97.6 [degF] 99 % 70 /min 130/84 mm[Hg] Lorraine Yanez RN [facility] [employer] 5 10:08:45 Date Recorded Systolic And Diastolic Provider Name and Address Organization Details Last Updated DateTime 11/11/2024 136/86 mm[Hg] [employer] [address], [address], [place] [employer] [facility] [employer] 11/11/2024 15:02:35 Date Recorded Body height Body mass index (BMI) Body weight Body temperature Oxygen saturation Heart rate Provider Name and Address Organization Details Last Updated DateTime 162.56 cm 37.6 kg/m2 67171.7 8 g 97.9 [degF] 99 % 73 /min Lorraine Yanez RN [facility] [employer] 14:53:57 Date Recorded Systolic And Diastolic Provider Name and Address Organization Details Last Updated DateTime 01/21/2025 134/80 mm[Hg] [employer] [address], [place], [address], [place] [employer] [facility] [employer] 01/21/2025 10:04:29 Date Recorded Body height Body mass index (BMI) Body weight Body temperature Oxygen saturation Heart rate Provider Name and Address Organization Details Last Updated DateTime 162.56 cm 35.4 kg/m2 68838.7 8 g 97.4 [degF] 99 % 67 /min Lorraine Yanez RN [facility] [employer] 09:56:44 Social History Question Answer Notes LastModified by Organization Details LastModified Time Tobacco Smoking Status Never Smoker Not Available [facility] 06/01/2022 20:58:14 Do You Have An Advance Directive? No [id number] Information not available 06/01/2022 Do You Wear A Helmet When Biking? Yes [id number] Information not available 06/01/2022 What Is Your Level Of Caffeine Consumption? Occasional One Coffee Maybe Twice A Week [id number] Information not available 06/25/2024 In The 14 Days Before Symptom Onset, Have You Had Close Contact [facility] While That Case Was Ill? No [id number] Information not available 06/01/2022 In The 14 Days Before Symptom Onset, Have You Had Close Contact With A Person Who Is Under Investigation For COVID-19 While That Person Was Ill? No [id number] Information not available 06/01/2022 What Type Of Diet Are You Following? REGULAR [email or web address].[id number] Information not available 06/01/2022 Do You Have [...] Your Family Or Social Situation? No [id number].[id number] Information not available 06/01/2022 What Is The Fluoride Status Of Your Home? Unknown [id number].[id number] [id number] Information not available 06/01/2022 Are There Any Guns Present In Your Home? No [id number].[id number] [id number] Information not available 06/01/2022 Do You Have A Humidifier? No Information not available 08/16/2023 Do You Use Insect Repellent Routinely? Yes [id number] Information not available 06/01/2022 Where Do You Live? [place] [id number] Information not available 06/01/2022 Do You Have A Medical Power Of Home Health Care Respiratory Therapist? No MIGRATION.[id number] [id number] Information not available 06/01/2022 Do You Have Moisture Problems In Your Home? No Information not available 08/16/2023 What Was The Date Of Your Most Recent Tobacco Screening? 08/16/2023 Information not available 08/16/2023 How Many Children Do You Have? 5 Information not available 07/21/2023 Have You Ever Been Counseled For Unhealthy Alcohol Use? No [id number] Information not available 06/01/2022 Do You Have Any Pets? Yes [id number] [id number] Information not available 06/01/2022 What Is Your Relationship Status? MIGRATION.[id number] [id number] Information not available 06/01/2022 Do You Use Your Seat Belt Or Car Seat Routinely? Yes MIGRATION.0301 [id number] Information not available 06/01/2022 Do You Have Smoke And Carbon Monoxide Detectors In Your Home? Yes MIGRATION.[id number] [id number] Information not available 06/01/2022 Are You Passively Exposed To Smoke? No MIGRATION.[id number] [id number] Information not available 06/01/2022 Are There Any Smokers In Your House? No MIGRATION.0301 [id number] Information not available 06/01/2022 Do You Participate In Social Media? Yes MIGRATION.0301 499373 Information not available 06/01/2022 What Types Of Sporting Activities Do You Participate In? Walk,tredmill, Stair Master Information not available 07/21/2023 Do You Use Sunscreen Routinely? Yes MIGRATION.0301 165816 Information not available 06/01/2022 Has Tobacco Cessation Counseling Been Provided? No MIGRATION.0301 819147 Information not available 06/01/2022 Have You Recently Traveled Abroad? No MIGRATION.0301 870058 Information not available 06/01/2022 Are You Currently In School? No MIGRATION.0301 867162 Information not available 06/01/2022 Do You Have Any Dietary Restrictions? No MIGRATION.0301 278660 Information not available 06/01/2022 Sex: Female Functional Status Question Answer Note LastModified by [employer] Details LastModified Time Do you use any illicit or recreational drugs? No MIGRATION.44354 30804 Information not available 06/01/2022 Do you or have you ever used any other forms of tobacco or nicotine? No MIGRATION.37245 37713 Information not available 06/01/2022 What is your level of alcohol consumption? Occasional MIGRATION.83862 31219 Information not available 06/01/2022 Have you been exposed to chemicals or toxins? 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 Occasional Information not available 07/21/2023 Mental Status Question Answer Note LastModified by [employer] Details LastModified Time Do you feel stressed (tense, restless, nervous, or anxious, or unable to sleep at night)? [id number] MIGRATION.[id number] 6 Information not available 06/01/2022 Family History Relationship Description Onset Age of this Age Resolved Age Notes LastModified by Organization Details LastModified Time Mother Diabetes mellitus MIGRATION.361 [id number] Not available 06/01/2022 20:58:22 Mother Hypertensive disorder 54 MIGRATION.190 [id number] Not available 06/01/2022 20:58:22 Father Hypertensive disorder DAD PASSED IN 1997 MIGRATION.376 [id number] Not available 06/01/2022 20:58:22 Mother Obstructive sleep [...] mcg/0.3 mL dose 11/19/2020 completed Not Available [facility] Past Encounters Encounter ID Performer Location Encounter Start Date Encounter Closed Date Diagnosis/Indication Diagnosis SNOMED-CT Code Diagnosis ICD10 Code Diagnosis IMO Codes Diagnosis Note [id number] Dread Sawyer MD [address] [address] 06/17/2021 00:00:00 06/17/2021 17:09:06 [id number] Dread Sawyer MD [address] [address] 08/05/2021 00:00:00 08/05/2021 10:54:37 [id number] Dread Sawyer MD [address] [address] 07/21/2023 09:48:21 07/21/2023 10:23:24 Essential hypertension 45013417 I10 Sleep disorder 99676263 G47.9 Sleep apnea 55728570 G47 .30 [id number] MD [facility] [address] [address] 08/16/2023 08:45:36 08/17/2023 08:46:17 Obstructive sleep apnea syndrome 55864176 G47.33 G47.36 G47.61 [id number] Dread Sawyer MD [address] [address] 10/20/2023 09:50:44 10/20/2023 10:35:26 Hypertensive disorder 45137753 I10 Obesity 586763165 E66.9 [id number] MD [facility] [address] [address] 11/06/2023 09:31:42 11/06/2023 15:30:03 Obstructive sleep apnea syndrome 20586754 G47.33 Periodic l imb movement disorder 044986001 G47.61 D50.8 E83.42 Paroxysmal atrial flutter 151964118 I48.92 [id number] Dread Sawyer MD [address] [address] 06/25/2024 12:09:22 06/25/2024 12:30:46 Adult health examination 644623397 Z00.00 Vitamin D deficiency 347 24745 E55.9 Obesity 410652418 E66.9 Obstructiv e sleep apnea syndrome 13054253 G47.33 Hypertensive disorder 38 144228 I10 [id number] Dread Sawyer MD [address] [address] 08/06/2024 10:25:35 08/06/2024 11:07:32 [id number] Dread Sawyer MD [address] [address] 08/14/2024 10:22:12 08/14/2024 11:03:39 Vitamin D deficiency 22321656 E55.9 Obesity 604169885 E66.9 Obstructiv e sleep apnea syndrome 95292088 G47.33 Hypertensive disorder 38 620200 I10 [id number] Dread Sawyer MD [address] [address] 09/11/2024 09:58:15 09/11/2024 10:19:26 Vitamin D deficiency 49256604 E55.9 Hypertensive disorder 38 020330 I10 Obesity 342609338 E66.9 Obstructiv e sleep apnea syndrome 53715834 G47.33 [id number] Dread Sawyer MD [address] [address] 11/11/2024 14:46:25 11/11/2024 15:01:31 Hypertensive disorder 78156605 I10 Vitamin D deficiency 347 08407 E55.9 Obesity 928963647 E66.9 Obstructiv e sleep apnea syndrome 85984606 G47.33 [id number] Dread Sawyer MD [facility] [address] [address] 01/21/2025 09:50:51 01/21/2025 10:04:22 Obstructive sleep apnea syndrome 89775470 G47.33 Hypertensive disorder 38 920664 I10 Vitamin D deficiency 347 82567 E55.9 Obesity 009023806 E66.9 Health Concerns Section Related Observation LastModified by Organization Detai ls LastModified Time None Recorded Concern Status LastModified by Organization Details LastModified Time None Recorded Advance Directives Directive N: Payers Insurance Date Sequence Insurance Name Policy Number Policy David Covered Member ID David Member ID Guarantor Name 11/11/2024 1 [facility] (MEDICAID HMO) [id number] Erinn Miramontes [id number] Erinn Miramontes 01/18/2025 1 [facility] [id number] Erinn Miramontes [id number] Erinn Miramontes Notes Date Note Type Note Provider Name and Address Organization Details Recorded Time 08/14/2024 text/html Pt is here for f/u on her annual labs. Doing overall well. Denies any problem with meds. Pt wants to try Phentermine for her wt concern. Pt has OSMIN and is on Cpap for it. Pt denies any issue with her heart rate/palpitation concern. Draed Sawyer MD [address], [place] [address], [place], [address], [employer] 08/14/2024 11:03:53 09/11/2024 text/html Pt is here for f/u on her meds and chronic conditions. Doing overall well. Denies any problem with meds. Happy with her results. So far, 8 lbs wt loss on it. Pt has OSMIN and is on Cpap for it. Pt denies any issue with her heart rate/palpitation concern. Dread Sawyer MD [address], [place], [address], [employer] 09/11/2024 10:20:12 11/11/2024 text/html Pt is here for f/u on her meds and chronic conditions. Doing overall well. Denies any problem with meds. Happy with her results. So far, 7 lbs wt loss on it. Pt has OSMIN and is on Cpap for it. Pt denies any issue with her heart rate/palpitation concern. Dread Sawyer MD [address] [employer], [place], [address], [employer] 11/11/2024 15:03:48 01/21/2025 text/html Pt is here [...] rate/palpitation concern. Dread Sawyer MD [address], [place], [address], [employer] 01/21/2025 10:06:18 OBGyn Episode No OBEpisode recorded.
--- OUTSIDE RECORDS SUMMARY | 2025-02-24 17:40 | XMS_ITS | Continuity of Care Document ---
Author Organization [place] [facility], [facility] Family [facility] Kathleen Address [address] [place] [address] Care Team Providers Care Fire Investigator Name Role Phone DREAD SAWYER Primary Care Provider [phone] Assessment Encounter Date Assessment Date Assessment LastModified by Organization Details LastModified Time 01/21/2025 01/21/2025 40 yo F with - [...] Time Details Appointments Any 15 2024 02:30P Twin Sawyer MD Not available Not available Not available Lab None recorded. Referral None recorded. Procedures None recorded. Surgeries None recorded. Imaging None recorded. Medication Orders phentermi ne 30 mg capsule 2024 [email or web address] [facility] #39349, [address], [id number], 01/21/2025 10:01:40 Zepbound 2.5 mg/0.5 mL subcutane ous pen injector 2024 [facility] #06974, [address], [id number], 01/21/2025 10:02:37 amlodipin e 5 mg tablet 2024 [facility] #29773, [address], [id number], 01/21/2025 10:01:03 metoprolo l succinate ER 25 mg tablet,ex tended release 24 hr 2024 [facility] #21805, [address], [id number], 01/21/2025 10:01:05 ergocalci ferol (vitamin D2) 1,250 mcg (50,000 unit) capsule 2024 [facility] [address] [facility] #87910, [address], [id number], 01/21/2025 10:01:02 Patient TargetsNo targets recorded. Patient Instructions Encounter Date Encounter Id Patient Instructions Last Modified By Organization Details Last Modified Time 01/21/2025 [id number] When You Want to Lose Weight: Care Instructions [id number] Not available 01/21/2025 10:00:54 Reason for Referral None Reported. Results Created Date Observation Date Name Description Value Unit Range Abnormal Flag Note LastModifiedBy Organization Detail LastModifiedTime 01/31/2001/30/2025 US, abdom en + pelvi s No observ ation record ed. [facility] [address], [place], [address], 01/31/2025 08:43:33 Result Notes None recorded. Problems Name Problem SNOMED Code Status Onset Date Resolution Date Notes Provider Name and Address Organization Details Recorded Time Hypertensive disorder 14406509 Active 2018 Not Available [facility] 3 20:59:55 Obesity 268058137 Active 2018 Not Available [facility] 3 20:59:55 Vitamin D deficiency 82783478 Active 2018 Not Available [facility] 3 20:59:54 Obstructive sleep apnea syndrome 14322862 Active 2023 Mahendra Parks MD [address] [place] [address], [address] , [employer] 4 09:38:47 Notes:Medical History: Early REM onset Obesity with moderate OSAHS, AHI = 16, 08/03/23, on autoCPAP c/o IVRC Hypertension Hepatic hemangiomas PLMD Vit D deficiency Right plantar fasciitis Right calcaneal spur Procedure History: Cholecystectomy 2010 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 Procedures Surgical History Date Name Laterality Status Provider Name and Address Organization Details Recorded Time 04/03/19 24 Date of Last Pap Smear completed Lucrecia Kenney RN [employer] 07/21/2023 10:05:19 04/03/19 14 Gallbladder Surgery completed Not Available [facility] 06/01/2022 20:58:20 Imaging Results None recorded. Procedure Notes None recorded. Medical Equipment None Reported. Allergies Allergen ID Allergen Name Allergen Category Reaction Reaction Severity Criticality Documentation Date Start Date Code Code System Note Provider Name and Address Organization Details Recorded Time 69169 grape flavor food,medi cation swelling severe Not available 06/01/2022 Not Available [facility] 3 21:01:57 Medications Name Sig Start Date [...] Available Not Avai lable Vitals Date Recorded Systolic And Diastolic Provider Name and Address Organization Details Last Updated DateTime 01/21/2025 134/80 mm[Hg] [facility] [address] [facility], [facility] [address], [place], [address], [facility] [employer] 01/21/2025 10:04:29 Date Recorded Body height Body mass index (BMI) Body weight Body temperature Oxygen saturation Heart rate Provider Name and Address Organization Details Last Updated DateTime 162.56 cm 35.4 kg/m2 57887.7 8 g 97.4 [degF] 99 % 67 /min Lorraine Yanez RN [facility] [employer] [facility] 09:56:44 Social History Question Answer Notes LastModified by Organization Details LastModified Time Tobacco Smoking Status Never Smoker Not Available [facility] 06/01/2022 20:58:14 Do You Have An Advance Directive? No MIGRATION.030858669 Information not available 06/01/2022 Do You Wear A Helmet When Biking? Yes MIGRATION.300026 Information not available 06/01/2022 What Is Your Level Of Caffeine Consumption? Occasional One Coffee Maybe Twice A Week [email or web address] Information not available 06/25/2024 In The 14 Days Before Symptom Onset, Have You Had Close Contact With A Laboratory-confi rmed COVID-19 While That Case Was Ill? No MIGRATION.22990509 Information not available 06/01/2022 In The 14 Days Before Symptom Onset, Have You Had Close Contact With A Person Who Is Under Investigation For COVID-19 While That Person Was Ill? No MIGRATION.0301 746073 Information not available 06/01/2022 What Type Of Diet Are You Following? REGULAR MIGRATION.0301 690047 Information not available 06/01/2022 Do You Have [...] Your Family Or Social Situation? No MIGRATION.0301 980993 Information not available 06/01/2022 What Is The Fluoride Status Of Your Home? Unknown MIGRATION.0301 228032 Information not available 06/01/2022 Are There Any Guns Present In Your Home? No MIGRATION.0301 197470 Information not available 06/01/2022 Do You Have A Humidifier? No Information not available 08/16/2023 Do You Use Insect Repellent Routinely? Yes MIGRATION.0301 928862 Information not available 06/01/2022 Where Do You Live? [place]House MIGRATION.0301 361732 Information not available 06/01/2022 Do You Have A Medical Power Of Washing Machine Installer? No MIGRATION.0301 447830 Information not available 06/01/2022 Do You Have Moisture Problems In Your Home? No Information not available 08/16/2023 What Was The Date Of Your Most Recent Tobacco Screening? 08/16/2023 Information not available 08/16/2023 How Many Children Do You Have? 5 Information not available 07/21/2023 Have You Ever Been Counseled For Unhealthy Alcohol Use? No MIGRATION.0301 585336 Information not available 06/01/2022 Do You Have Any Pets? Yes MIGRATION.0301 160569 Information not available 06/01/2022 What Is Your Relationship Status? MIGRATION.0301 232654 Information not available 06/01/2022 Do You Use Your Seat Belt Or Car Seat Routinely? Yes MIGRATION.0301 907823 Information not available 06/01/2022 Do You Have Smoke And Carbon Monoxide Detectors In Your Home? Yes MIGRATION.0301 332999 Information not available 06/01/2022 Are You Passively Exposed To Smoke? No MIGRATION.0301 503001 Information not available 06/01/2022 Are There Any Smokers In Your House? No MIGRATION.0301 408837 Information not available 06/01/2022 Do You Participate In Social Media? Yes MIGRATION.0301 905560 Information not available 06/01/2022 What Types Of Sporting Activities Do You Participate In? Walk,tredmill, Stair Master Information not available 07/21/2023 Do You Use Sunscreen Routinely? Yes MIGRATION.0301 794738 Information not available 06/01/2022 Has Tobacco Cessation Counseling Been Provided? No MIGRATION.0301 916082 Information not available 06/01/2022 Have You Recently Traveled Abroad? No MIGRATION.0301 173136 Information not available 06/01/2022 Are You Currently In School? No MIGRATION.0301 110412 Information not available 06/01/2022 Do You Have Any Dietary Restrictions? No MIGRATION.0301 740601 Information not available 06/01/2022 Sex: Female Functional Status Question Answer Note LastModified by Organizat ion Details LastModified Time Do you use any illicit or recreational drugs? No MIGRATION.22380 47768 Information not available 06/01/2022 Do you or have you ever used any other forms of tobacco or nicotine? No MIGRATION.44059 24000 Information not available 06/01/2022 What is your level of alcohol consumption? Occasional MIGRATION.37103 48386 Information not available 06/01/2022 Have you been exposed to chemicals or toxins? 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 Occasional Information not available 07/21/2023 Mental Status Question Answer Note LastModified by Organiz[employer] ion Details LastModified Time Do you feel stressed (tense, restless, nervous, or anxious, or unable to sleep at night)? [id number] MIGRATION.647257157 6 Information not available 06/01/2022 Family History Relationship Description Onset Age of this Age Resolved Age Notes LastModified by Organization Details LastModified Time Mother Diabetes mellitus MIGRATION.577 2806301 Not available 06/01/2022 20:58:22 Mother Hypertensive disorder 54 MIGRATION.801 9565918 Not available 06/01/2022 20:58:22 Father Hypertensive disorder DAD PASSED IN 1997 MIGRATION.492 0321579 Not available 06/01/2022 20:58:22 Mother Obstructive sleep [...] mcg/0.3 mL dose 11/19/2020 completed Not Available [employer] 21:01:53 Past Encounters Encounter ID Performer Location Encounter Start Date Encounter Closed Date Diagnosis/Indication Diagnosis SNOMED-CT Code Diagnosis ICD10 Code Diagnosis IMO Codes Diagnosis Note [id number] Dread Sawyer MD [facility] [address] [address] 01/21/2025 09:50:51 01/21/2025 10:04:22 Obstructive sleep apnea syndrome 89500068 G47.33 Hypertensive disorder 38 732405 I10 Vitamin D deficiency 347 30317 E55.9 Obesity 059617973 E66.9 Health Concerns Section Related Observation LastModified by Organization Detai ls LastModified Time None Recorded Concern Status LastModified by Organization Details LastModified Time None Recorded Payers Encounter Date Sequence Insurance Name Policy Number Policy David Covered Member ID David Member ID Guarantor Name 01/21/2025 1 [facility] [id number] Erinn Miramontes [id number] Erinn Miramontes Notes Date Note Type Note Provider Name and Address Organization Details Recorded Time 01/21/2025 text/html Pt is here for f/u [...] Pt denies any issue with her heart rate/palpitatio n concern. Dread Sawyer MD [address] [facility], [facility] [address], [place], [address], [facility] [email or web address] 01/21/2025 10:06:18 OBGyn Episode No OBEpisode recorded.
--- OUTSIDE RECORDS SUMMARY | 2025-02-24 17:40 | XMS_ITS | Clinical Summary ---
Author Organization [facility] Address [address] [place] [address] Care Team Providers Care Barrel Racer Name Role Phone Unavailable Primary Care Provider [...]
== END 2025-02-24 15:01 | disposition home or self-care (01) ==
LOC: ANHLAB 15:01
PROVIDERS: Visit Provider Nurse Practitioner Family
DX: O03.9 Complete or unspecified spontaneous abortion without complication (principal); Z3A.00 Weeks of gestation of pregnancy not specified
CPT/HCPCS: 36415; 84702

== ENCOUNTER 2025-02-26 07:13 | Outpatient (CLI) | payer OTHER, SELFPAY ==
--- OUTSIDE RECORDS SUMMARY | 2025-02-26 07:17 | XMS_ITS | Data Portability ---
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 Annual labs in 06/26. [email or web address] Not available 08/14/2024 11:02:33 09/11/2024 09/11/2024 37 [...] in 2 months. Annual labs in 06/26. [email or web address] Not available 09/11/2024 10:19:16 11/11/2024 11/11/2024 37 [...] in 2 months. Annual labs in 06/26. [email or web address] Not available 11/11/2024 14:57:47 01/21/2025 01/21/2025 38 [...] Orders phentermi ne 30 mg capsule 2024 [email or web address] [facility] #77798, [address], [id number], 01/21/2025 10:01:40 Zepbound 2.5 mg/0.5 mL subcutane ous pen injector 2024 [facility] #93702, [address], [id number], 01/21/2025 10:02:37 amlodipin e 5 mg tablet 2024 [facility], [address], [id number], 01/21/2025 10:01:03 metoprolo l succinate ER 25 mg tablet,ex tended release 24 hr 2024 [facility], [address], [id number], 01/21/2025 10:01:05 ergocalci ferol (vitamin D2) 1,250 mcg (50,000 unit) capsule 2024 [facility], [address], [id number], 01/21/2025 10:01:02 phentermi ne 30 mg capsule 2024 025 [facility] #97126, [address] [facility] [address] [facility], [place], [place], [id number], 11/11/2024 15:00:16 Wegovy 0.25 mg/0.5 mL subcutane ous pen injector 2024 025 [email or web address] 2 [facility] #05611, [address] [address], [place], [place], [phone], 11/13/2024 09:32:14 amlodipin e 5 mg tablet 2024 [facility] #49619, [address], [id number], 11/11/2024 15:00:12 metoprolo l succinate ER 25 mg tablet,ex tended release 24 hr 2024 025 [facility] #07844, [address], [id number], 11/11/2024 15:00:13 ergocalci ferol (vitamin D2) 1,250 mcg (50,000 unit) capsule 2024 025 [facility] #87696, [address] [facility] [address] [facility], [place], [place], [id number], 11/11/2024 15:00:13 phentermi ne 15 mg capsule 2024 025 [email or web address] [facility] #16284, [address], [id number], 11/11/2024 15:03:00 amlodipin e 5 mg tablet 2024 025 [facility] #89894, [address] [facility], [place], [place], [id number], 09/11/2024 10:17:26 metoprolo l succinate ER 25 mg tablet,ex tended release 24 hr [email or web address] [facility] #67960, [address] [facility], [place], [place], [id number], 09/11/2024 10:17:53 ergocalci ferol (vitamin D2) 1,250 mcg (50,000 unit) capsule 2024 025 [facility] #79366, [address] [facility] [address] [place] [address], [id number], 09/11/2024 10:17:25 phentermi ne 15 mg capsule 2024 025 [email or web address] [facility] #21821, [address] [place] [address], [id number], 11/11/2024 15:03:00 amlodipin e 5 mg tablet 2024 025 [facility] #75114, [address] [place] [address], [id number], 08/14/2024 11:01:25 metoprolo l succinate ER 25 mg tablet,ex tended release 24 hr 2024 025 [facility] #95969, [address] [place] [address], [id number], 08/14/2024 11:01:25 ergocalci ferol (vitamin D2) 1,250 mcg (50,000 unit) capsule 2024 025 [facility] #66916, [address] [place] [address], [id number], 08/14/2024 11:01:25 Patient TargetsNo targets recorded. Patient Instructions Encounter Date Encounter Id Patient Instructions Last Modified By Organization Details Last Modified Time 08/14/2024 [id number] When You Want to Lose Weight: Care Instructions Not available 08/14/2024 11:01:18 09/11/2024 [id number] When You Want to Lose Weight: Care Instructions [email or web address] Not available 09/11/2024 10:17:19 11/11/2024 [id number] When You Want to Lose Weight: Care Instructions Not available 11/11/2024 15:00:01 01/21/2025 [id number] When You Want to Lose Weight: Care Instructions [email or web address] Not available 01/21/2025 10:00:54 Reason for Referral None Reported. Results Created Date Observation Date Name Description Value Unit Range Abnormal Flag Note LastModifiedBy Organization Detail LastModifiedTime 08/07/1908/06/2024 CBC/C OMPLE TE BLD COUNT W/DIF F white blood cells 7.1 x10'3 /uL 4.2-10 .8 Not Available [facility] (Lab) [address] [place], [address], 08/06/2024 19:12:02 08/07/19 25 08/06/2024 CBC/C OMPLE TE BLD COUNT W/DIF F red blood cells 4.34 x10'6 /uL 3.80-5 .20 Not Available [facility] (Lab) [address] [place], [address], 08/06/2024 19:12:02 08/07/19 25 08/06/2024 CBC/C OMPLE TE BLD COUNT W/DIF F hemoglobin 13.1 g/dL 12.0-1 5.6 Not Available [facility] (Lab) [address] [place], [address], 08/06/2024 19:12:02 08/07/19 25 08/06/2024 CBC/C OMPLE TE BLD COUNT W/DIF F hematocrit 40.0 % 35.7-4 5.7 Not Available [facility] (Lab) [address] [place], [address], 08/06/2024 19:12:02 08/07/19 25 08/06/2024 CBC/C OMPLE TE BLD COUNT W/DIF F mean red cell volume 92.2 fL 82.0-9 9.0 Not Available [facility] (Lab) [address] [place], [address], 08/06/2024 19:12:02 08/07/19 25 08/06/2024 CBC/C OMPLE TE BLD COUNT W/DIF F mean red cell hemoglobin 30.2 pg 27.0-3 3.0 Not Available [facility] (Lab) [address] [place], [address], 08/06/2024 19:12:02 08/07/19 25 08/06/2024 CBC/C OMPLE TE BLD COUNT W/DIF F mean RBC HGB concentratio n 32.8 g/dL 31.0-3 6.0 Not Available [facility] (Lab) [address] [place], [address], 08/06/2024 19:12:02 08/07/1908/06/2024 CBC/C OMPLE TE BLD COUNT W/DIF F red cell distribution width 13.0 % 11.8-1 5.5 Not Available [facility] (Lab) [address] [place], [address], 08/06/2024 19:12:02 08/07/1908/06/2024 CBC/C OMPLE TE BLD COUNT W/DIF F platelets 314 x10'3 /uL 150-40 0 Not Available [facility] (Lab) [address] [facility] [place], [address], 08/06/2024 19:12:02 08/07/19 25 08/06/2024 CBC/C OMPLE TE BLD COUNT W/DIF F mean platelet volume 9.3 fL 9.0-12 .4 Not Available [facility] (Lab) [address] [place], [address], 08/06/2024 19:12:02 08/07/1908/06/2024 CBC/C OMPLE TE BLD COUNT W/DIF F neutrophils 67.4 % 39.0-7 2.0 Not Available [facility] (Lab) [address] [place], [address], 08/06/2024 19:12:02 08/07/1908/06/2024 CBC/C OMPLE TE BLD COUNT W/DIF F lymphocytes 23.3 % 16.0-4 7.0 Not Available [facility] (Lab) [address] [place], [address], 08/06/2024 19:12:02 08/07/1908/06/2024 CBC/C OMPLE TE BLD COUNT W/DIF F monocytes 8.3 % 5.0-12 .0 Not Available [facility] (Lab) [address] [place], [address], 08/06/2024 19:12:02 08/07/1908/06/2024 CBC/C OMPLE TE BLD COUNT W/DIF F eosinophils 0.3 % 1.0-7. 0 low Not Available [facility] (Lab) [address] [place], [address], 08/06/2024 19:12:02 08/07/1908/06/2024 CBC/C OMPLE TE BLD COUNT W/DIF F basophils 0.4 % 0.0-2. 0 Not Available [facility] (Lab) [address] [place], [address], 08/06/2024 19:12:02 08/07/19 25 08/06/2024 CBC/C OMPLE TE BLD COUNT W/DIF F immature granulocytes 0.3 % 0.00-0 .50 Not Available [facility] (Lab) [address] [place], [address], 08/06/2024 19:12:02 08/07/1908/06/2024 CBC/C OMPLE TE BLD COUNT W/DIF F neutrophils, absolute count 4.78 x10'3 /uL 1.5-8. 0 Not Available [facility] (Lab) [address] [place], [address], 08/06/2024 19:12:02 08/07/1908/06/2024 CBC/C OMPLE TE BLD COUNT W/DIF F lymphocytes, absolute count 1.65 x10'3 /uL 1.07-3 .43 Not Available [facility] (Lab) [address] [place], [address], 08/06/2024 19:12:02 08/07/1908/06/2024 CBC/C OMPLE TE BLD COUNT W/DIF F monocytes, absolute count 0.59 x10'3 /uL 0.29-0 .99 Not Available [facility] (Lab) [address] [place], [address], 08/06/2024 19:12:02 08/07/1908/06/2024 CBC/C OMPLE TE BLD COUNT W/DIF F eosinophils, absolute count 0.02 x10'3 /uL 0.02-0 .53 Not Available [facility] (Lab) [address] [place], [address], 08/06/2024 19:12:02 08/07/1908/06/2024 CBC/C OMPLE TE BLD COUNT W/DIF F basophils, absolute count 0.03 x10'3 /uL 0.01-0 .08 Not Available [facility] (Lab) [address] [place], [address], 08/06/2024 19:12:02 08/07/1908/06/2024 CBC/C OMPLE TE BLD COUNT W/DIF F immature granulocytes ,absolute 0.02 x10'3 /uL 0.00-0 .05 Not Available [facility] (Lab) [address] [place], [address], 08/06/2024 19:12:02 08/07/19 25 08/06/2024 CBC/C OMPLE TE BLD COUNT W/DIF F nucleated red blood cells 0.0 % -0 Not Available [facility] (Lab) [address] [place], [address], 08/06/2024 19:12:02 08/07/19 25 08/06/2024 CBC/C OMPLE TE BLD COUNT W/DIF F NRBC# 0.00 x10'3 /uL Not Available [facility] (Lab) [address] [place], [address], 08/06/2024 19:12:02 08/07/19 25 08/06/2024 URINA LYSIS COMPL ETE/I RIS W/RFX color LIGHT- YELLOW Not Available [facility] (Lab) [address] [place], [address], 08/06/2024 19:19:12 08/07/19 25 08/06/2024 URINA LYSIS COMPL ETE/I RIS W/RFX appear TURBID abnormal Not Available [facility] (Lab) [address] [place], [address], 08/06/2024 19:19:12 08/07/19 25 08/06/2024 URINA LYSIS COMPL ETE/I RIS W/RFX specific gravity 1.013 1.001- 1.030 Not Available [facility] (Lab) [address] [place], [address], 08/06/2024 19:19:12 08/07/19 25 08/06/2024 URINA LYSIS COMPL ETE/I RIS W/RFX pH 6.5 pH_un its 5.0-9. 0 Not Available [facility] (Lab) [address] [place], [address], 08/06/2024 19:19:12 08/07/19 25 08/06/2024 URINA LYSIS COMPL ETE/I RIS W/RFX leukocytes 75 pili/u L negati ve- abnormal Not Available [facility] (Lab) [address] [place], [address], 08/06/2024 19:19:12 08/07/19 25 08/06/2024 URINA LYSIS COMPL ETE/I RIS W/RFX nitrite NEGATI VE negati ve- Not Available [facility] (Lab) [address] [place], [address], 08/06/2024 19:19:12 08/07/19 25 08/06/2024 URINA LYSIS COMPL ETE/I RIS W/RFX protein NEGATI VE mg/dL negati ve- Not Available [facility] (Lab) [address] [place], [address], 08/06/2024 19:19:12 08/07/19 25 08/06/2024 URINA LYSIS COMPL ETE/I RIS W/RFX glucose NORMAL mg/dL normal - Not Available [facility] (Lab) [address] [place], [address], 08/06/2024 19:19:12 08/07/19 25 08/06/2024 URINA LYSIS COMPL ETE/I RIS W/RFX ketones NEGATI VE mg/dL negati ve- Not Available [facility] (Lab) [address] [place], [address], 08/06/2024 19:19:12 08/07/19 25 08/06/2024 URINA LYSIS COMPL ETE/I RIS W/RFX urobilinogen NORMAL mg/dL normal - Not Available [facility] (Lab) [address] [place], [address], 08/06/2024 19:19:12 08/07/1908/06/2024 URINA LYSIS COMPL ETE/I RIS W/RFX bilirubin NEGATI VE mg/dL negati ve- Not Available [facility] (Lab) [address] [place], [address], 08/06/2024 19:19:12 08/07/19 25 08/06/2024 URINA LYSIS COMPL ETE/I RIS W/RFX blood 0.06 mg/dL negati ve- abnormal Not Available [facility] (Lab) [address] [place], [address], 08/06/2024 19:19:12 08/07/19 25 08/06/2024 URINA LYSIS COMPL ETE/I RIS W/RFX white blood cells 0-8 /i??h pfi?? 0-8 Not Available [facility] (Lab) [address] [place], [address], 08/06/2024 19:19:12 08/07/19 25 08/06/2024 URINA LYSIS COMPL ETE/I RIS W/RFX red blood cells 0-4 /i??h pfi?? 0-4 Not Available [facility] (Lab) [address] [facility] [place], [address], 08/06/2024 19:19:12 08/07/1908/06/2024 URINA LYSIS COMPL ETE/I RIS W/RFX bacteria NONE none seen- Not Available [facility] (Lab) [address] [place], [address], 08/06/2024 19:19:12 08/07/19 25 08/06/2024 URINA LYSIS COMPL ETE/I RIS W/RFX mucous OCCASI ONAL /i??l pfi?? none seen- abnormal Not Available [facility] (Lab) [address] [place], [address], 08/06/2024 19:19:12 08/07/1908/06/2024 URINA LYSIS COMPL ETE/I RIS W/RFX squamous epithelial FEW /i??l pfi?? abnormal Not Available [facility] (Lab) [address] [place], [address], 08/06/2024 19:19:12 08/07/19 25 08/06/2024 LIPID PANEL cholesterol 145 mg/dL 140-19 9 NIH NIKKI NSUS RECOM MENDA TION FOR BEENA STERO L: ADULT CHILD LOW RISK: <200 <170 BORDE RLINE : <200- 239 ----- HIGH RISK: >240 >200 Not Available [facility] (Lab) [address] [place], [address], 08/06/2024 19:38:53 08/07/1908/06/2024 LIPID PANEL triglyceride s 56 mg/dL 0-150 NIH NIKKI NSUS REPOR T RECOM MENDA TION FOR TRIGL YCERI PAOLA: ADULT CHILD LOW RISK: <150 ----- BODER LINE: 150-1 99 ----- HIGH RISK: >200 ----- Not Available [facility] (Lab) [address] [place], [address], 08/06/2024 19:38:53 08/07/19 25 08/06/2024 LIPID PANEL HDL cholesterol 49 mg/dL 40- Not Available [facility] (Lab) [address] [place], [address], 08/06/2024 19:38:53 08/07/1908/06/2024 LIPID PANEL LDL cholesterol, [...] WILL NOT BE REPOR GAYATRI. Not Available [facility] (Lab) [address] [place], [address], 08/06/2024 19:38:53 08/07/19 25 08/06/2024 COMPR EHENS SENAIT METAB OLIC PANEL sodium 134 mmol/ L 137-14 5 low Not Available [facility] (Lab) [address] [place], [address], 08/06/2024 19:38:56 08/07/19 25 08/06/2024 COMPR EHENS SENAIT METAB OLIC PANEL potassium 4.6 mmol/ L 3.5-5. 1 Not Available [facility] (Lab) [address] [place], [address], 08/06/2024 19:38:56 08/07/19 25 08/06/2024 COMPR EHENS SENAIT METAB OLIC PANEL chloride 103 mmol/ L 98-107 Not Available [facility] (Lab) [address] [place], [address], 08/06/2024 19:38:56 08/07/19 25 08/06/2024 COMPR EHENS SENAIT METAB OLIC PANEL carbon dioxide 26 mmol/ L 22-30 Not Available [facility] (Lab) [address] [place], [address], 08/06/2024 19:38:56 08/07/19 25 08/06/2024 COMPR EHENS SENAIT METAB OLIC PANEL anion gap 9.6 mmol/ L 14-22 low Not Available [facility] (Lab) [address] [place], [address], 08/06/2024 19:38:56 08/07/19 25 08/06/2024 COMPR EHENS SENAIT METAB OLIC PANEL glucose 74 mg/dL 70-99 Not Available [facility] (Lab) [address] [facility] [place], [address], 08/06/2024 19:38:56 08/07/1908/06/2024 COMPR EHENS SENAIT METAB OLIC PANEL BUN 9 mg/dL 8-19 Not Available [facility] (Lab) [address] [place], [address], 08/06/2024 19:38:56 08/07/1908/06/2024 COMPR EHENS SENAIT METAB OLIC PANEL creatinine 0.66 mg/dL 0.66-1 .25 Not Available [facility] (Lab) [address] [place], [address], 08/06/2024 19:38:56 08/07/1908/06/2024 COMPR EHENS SENAIT METAB OLIC PANEL GFR >60 Refer ence Range : Leslie ge GFR Healt hy Adult : >60 [...] or ethni c subgr oups, such as [facility] nics. Outsi de the valid ated [...] calcu lator is avail able on the [facility] websi te: https :[email or web address] [email or web address].kid leidy.o rg/pr ofess ional s/kdo qi/gf r_cal culat or Not Available [facility] (Lab) [address] [place], [address], 08/06/2024 19:38:56 08/07/19 25 08/06/2024 COMPR EHENS SENAIT METAB OLIC PANEL alkaline phosphatase 101 U/L 38-126 Not Available [facility] (Lab) [address] [place], [address], 08/06/2024 19:38:56 08/07/19 25 08/06/2024 COMPR EHENS SENAIT METAB OLIC PANEL alanine aminotransfe rase 29 U/L 0-35 Not Available [facility] (Lab) [address] [place], [address], 08/06/2024 19:38:56 08/07/19 25 08/06/2024 COMPR EHENS SENAIT METAB OLIC PANEL aspartate aminotransfe rase 23 U/L 15-37 Not Available [facility] (Lab) [address] [place], [address], 08/06/2024 19:38:56 08/07/19 25 08/06/2024 COMPR EHENS SENAIT METAB OLIC PANEL bilirubin, total 0.60 mg/dL 0.20-1 .30 Not Available [facility] (Lab) [address] [place], [address], 08/06/2024 19:38:56 08/07/19 25 08/06/2024 COMPR EHENS SENAIT METAB OLIC PANEL calcium 10.2 mg/dL 8.4-10 .2 Not Available [facility] (Lab) [address] [place], [address], 08/06/2024 19:38:56 08/07/19 25 08/06/2024 COMPR EHENS SENAIT METAB OLIC PANEL total protein 6.9 g/dL 6.3-8. 2 Not Available [facility] (Lab) [address] [place], [address], 08/06/2024 19:38:56 08/07/19 25 08/06/2024 COMPR EHENS SENAIT METAB OLIC PANEL albumin 4.3 g/dL 3.4-5. 0 Not Available [facility] (Lab) [address] [place], [address], 08/06/2024 19:38:56 08/07/19 25 08/06/2024 COMPR EHENS SENAIT METAB OLIC PANEL globulin 2.6 g/dL 2.6-4. 2 Not Available [facility] (Lab) [address] [place], [address], 08/06/2024 19:38:56 08/07/19 25 08/06/2024 COMPR EHENS SENAIT METAB OLIC PANEL A/G ratio 1.7 ratio 1.0-2. 0 Not Available [facility] (Lab) [address] [place], [address], 08/06/2024 19:38:56 08/07/1908/06/2024 VITAM IN D 25-HY DROXY [id number] 32.7 NG/mL 30-100 Vitam in D Statu s: Defic ient: <20 ng/mL Insuf ficie nt: 20-29 ng/mL Suffi cient : 30-10 0 ng/mL Not Available [facility] (Lab) [address] [place], [address], 08/06/2024 19:59:54 08/07/1908/06/2024 TSH W/REF JAX FT4 TSH with reflex free T4 0.754 uIU/m L 0.465- 4.680 Not Available [facility] (Lab) [address] [place], [address], 08/06/2024 20:10:16 08/07/19 25 08/06/2024 HEMOG LOBIN A1C HA1C 4.8 % 4.0-6. 0 Diabe dorcas Eveliae sampson Crite mounika: <5.7% Consi stent with absen ce of diabe dorcas 5.7-6 .4% Consi stent with incre ased risk for diabe dorcas (pred iabet es) >OR=6 .5% Consi stent with diabe dorcas REFER ENCE: Diabe dorcas Care 2016, 39(Harvey ppl.1 ):s13 -s22 Not Available [facility] ([facility]) [address] [place], [address], 08/06/2024 20:29:17 01/31/20 25 01/30/2025 US, abdom en + pelvi s No observ ation record ed. [facility] [address] [facility] [address], [place], [address], 01/31/2025 08:43:33 Result Notes None recorded. Problems Name Problem SNOMED Code Status Onset Date Resolution Date Notes Provider Name and Address Organization Details Recorded Time Hypertensive disorder 56994282 Active 2018 Not Available [facility] 3 20:59:55 Obesity 122000444 Active 2018 Not Available [facility] 3 20:59:55 Vitamin D deficiency 92129544 Active 2018 Not Available [facility] 3 20:59:54 Obstructive sleep apnea syndrome 46993468 Active 2023 Mahendra Parks MD [address] [facility], [place], [address] , [email or web address] 4 09:38:47 Notes:Medical History: Early REM onset Obesity with moderate OSAHS, AHI = 16, 08/03/23, on autoCPAP c/o IVRC Hypertension Hepatic hemangiomas PLMD Vit D deficiency Right plantar fasciitis Right calcaneal spur Procedure History: Cholecystectomy 2010 Occupational History: [employer] Problem Notes None recorded. Procedures Surgical History Date Name Laterality Status Provider Name and Address Organization Details Recorded Time 04/03/19 24 Date of Last Pap Smear completed Lucrecia Kenney RN [email or web address] 07/21/2023 10:05:19 04/03/19 14 Gallbladder Surgery completed Not Available [facility] 06/01/2022 20:58:20 Imaging Results None recorded. Procedure Notes None recorded. Medical Equipment None Reported. Allergies Allergen ID Allergen Name Allergen Category Reaction Reaction Severity Criticality Documentation Date Start Date Code Code System Note Provider Name and Address Organization Details Recorded Time 17032 grape flavor food,medi cation swelling severe Not available 06/01/2022 Not Available [facility] 21:01:57 Medications Name Sig Start Date [...] Updated DateTime 5 162.56 cm 38.8 kg/m2 215434. 93 g 97.6 [degF] 96 % 69 /min 130/80 mm[Hg] Lorraine YanezRN [place] - [facility] [employer] [facility] 5 10:55:51 Date Recorded Body height Body mass index (BMI) Body weight Body temperature Oxygen saturation Heart rate Systolic And Diastolic Provider Name and Address Organization Details Last Updated DateTime 5 162.56 cm 37.5 kg/m2 51057.8 9 g 97.6 [degF] 99 % 70 /min 130/84 mm[Hg] Lorraine Yanez RN [facility] [employer] 5 10:08:45 Date Recorded Systolic And Diastolic Provider Name and Address Organization Details Last Updated DateTime 11/11/2024 136/86 mm[Hg] Twni Starks [address] [employer] [address], [address], [place] [employer] [facility] [employer] 11/11/2024 15:02:35 Date Recorded Body height Body mass index (BMI) Body weight Body temperature Oxygen saturation Heart rate Provider Name and Address Organization Details Last Updated DateTime 162.56 cm 37.6 kg/m2 35634.7 8 g 97.9 [degF] 99 % 73 /min Lorraine Yanez RN [facility] [employer] 14:53:57 Date Recorded Systolic And Diastolic Provider Name and Address Organization Details Last Updated DateTime 01/21/2025 134/80 mm[Hg] Twin Starks [address], [place], [address], [place] [employer] [facility] [employer] 01/21/2025 10:04:29 Date Recorded Body height Body mass index (BMI) Body weight Body temperature Oxygen saturation Heart rate Provider Name and Address Organization Details Last Updated DateTime 162.56 cm 35.4 kg/m2 21837.7 8 g 97.4 [degF] 99 % 67 /min Lorraine Yanez RN [facility] [employer] 09:56:44 Social History Question Answer Notes LastModified by Organization Details LastModified Time Tobacco Smoking Status Never Smoker Not Available [facility] 06/01/2022 20:58:14 Do You Have An Advance Directive? No [id number] Information not available 06/01/2022 Do You Wear A Helmet When Biking? Yes [id number] Information not available 06/01/2022 What Is Your Level Of Caffeine Consumption? Occasional One Coffee Maybe Twice A Week [email or web address] Information not available 06/25/2024 In The 14 Days Before Symptom Onset, Have You Had Close Contact With A [facility] COVID-19 While That Case Was Ill? No [id number] Information not available 06/01/2022 In The 14 Days Before Symptom Onset, Have You Had Close Contact With A Person Who Is Under Investigation For COVID-19 While That Person Was Ill? No [id number] Information not available 06/01/2022 What Type Of Diet Are You Following? REGULAR [email or web address].[id number] Information not available 06/01/2022 Do You Have [...] Your Family Or Social Situation? No [email or web address].[id number] Information not available 06/01/2022 What Is The Fluoride Status Of Your Home? Unknown [id number] Information not available 06/01/2022 Are There Any Guns Present In Your Home? No [id number] Information not available 06/01/2022 Do You Have A Humidifier? No Information not available 08/16/2023 Do You Use Insect Repellent Routinely? Yes [id number] Information not available 06/01/2022 Where Do You Live? [place] [email or web address].[id number] Information not available 06/01/2022 Do You Have A Medical Power Of [employer] Setter? No [id number] [id number] Information not available 06/01/2022 Do You Have Moisture Problems In Your Home? No Information not available 08/16/2023 What Was The Date Of Your Most Recent Tobacco Screening? 08/16/2023 Information not available 08/16/2023 How Many Children Do You Have? 5 Information not available 07/21/2023 Have You Ever Been Counseled For Unhealthy Alcohol Use? No [email or web address].[id number] Information not available 06/01/2022 Do You Have Any Pets? Yes [id number] Information not available 06/01/2022 What Is Your Relationship Status? [id number] Information not available 06/01/2022 Do You Use Your Seat Belt Or Car Seat Routinely? Yes [id number] Information not available 06/01/2022 Do You Have Smoke And Carbon Monoxide Detectors In Your Home? Yes [id number] Information not available 06/01/2022 Are You Passively Exposed To Smoke? No [id number] Information not available 06/01/2022 Are There Any Smokers In Your House? No MIGRATION.0301 [id number] Information not available 06/01/2022 Do You Participate In Social Media? Yes MIGRATION.0301 319335 Information not available 06/01/2022 What Types Of Sporting Activities Do You Participate In? Walk,tredmill, Stair Master Information not available 07/21/2023 Do You Use Sunscreen Routinely? Yes MIGRATION.0301 965391 Information not available 06/01/2022 Has Tobacco Cessation Counseling Been Provided? No MIGRATION.0301 695806 Information not available 06/01/2022 Have You Recently Traveled Abroad? No MIGRATION.0301 822630 Information not available 06/01/2022 Are You Currently In School? No MIGRATION.0301 033913 Information not available 06/01/2022 Do You Have Any Dietary Restrictions? No MIGRATION.0301 574557 Information not available 06/01/2022 Sex: Female Functional Status Question Answer Note LastModified by [employer] Details LastModified Time Do you use any illicit or recreational drugs? No MIGRATION.32945 35169 Information not available 06/01/2022 Do you or have you ever used any other forms of tobacco or nicotine? No MIGRATION.46112 98468 Information not available 06/01/2022 What is your level of alcohol consumption? Occasional MIGRATION.99662 98073 Information not available 06/01/2022 Have you been exposed to chemicals or toxins? 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 Occasional Information not available 07/21/2023 Mental Status Question Answer Note LastModified by [employer] Dis[employer] ion Details LastModified Time Do you feel stressed (tense, restless, nervous, or anxious, or unable to sleep at night)? [id number] MIGRATION.[id number] 6 Information not available 06/01/2022 Family History Relationship Description Onset Age of this Age Resolved Age Notes LastModified by Organization Details LastModified Time Mother Diabetes mellitus MIGRATION.974 [id number] Not available 06/01/2022 20:58:22 Mother Hypertensive disorder 54 MIGRATION.648 [id number] Not available 06/01/2022 20:58:22 Father Hypertensive disorder DAD PASSED IN 1997 MIGRATION.147 [id number] Not available 06/01/2022 20:58:22 Mother Obstructive sleep [...] mcg/0.3 mL dose 11/19/2020 completed Not Available [facility] Past Encounters Encounter ID Performer Location Encounter Start Date Encounter Closed Date Diagnosis/Indication Diagnosis SNOMED-CT Code Diagnosis ICD10 Code Diagnosis IMO Codes Diagnosis Note [id number] Dread Sawyer MD [address] [address] 06/17/2021 00:00:00 06/17/2021 17:09:06 [id number] Dread Sawyer MD [address] [address] 08/05/2021 00:00:00 08/05/2021 10:54:37 [id number] Dread Sawyer MD [address] [address] 07/21/2023 09:48:21 07/21/2023 10:23:24 Essential hypertension 52913336 I10 Sleep disorder 28851345 G47.9 Sleep apnea 40798590 G47 .30 [id number] [facility] [address] [address] 08/16/2023 08:45:36 08/17/2023 08:46:17 Obstructive sleep apnea syndrome 11638734 G47.33 G47.36 G47.61 [id number] Dread Sawyer MD [address] [address] 10/20/2023 09:50:44 10/20/2023 10:35:26 Hypertensive disorder 56555732 I10 Obesity 330610469 E66.9 [id number] [facility] [address] [address] 11/06/2023 09:31:42 11/06/2023 15:30:03 Obstructive sleep apnea syndrome 32726308 G47.33 Periodic l imb movement disorder 589192095 G47.61 D50.8 E83.42 Paroxysmal atrial flutter 196165923 I48.92 [id number] Dread Sawyer MD [address] [address] 06/25/2024 12:09:22 06/25/2024 12:30:46 Adult health examination 570867981 Z00.00 Vitamin D deficiency 347 11277 E55.9 Obesity 452806365 E66.9 Obstructiv e sleep apnea syndrome 22343555 G47.33 Hypertensive disorder 38 311295 I10 [id number] Dread Sawyer MD [address] [address] 08/06/2024 10:25:35 08/06/2024 11:07:32 [id number] Dread Sawyer MD [address] [address] 08/14/2024 10:22:12 08/14/2024 11:03:39 Vitamin D deficiency 59673952 E55.9 Obesity 350011009 E66.9 Obstructiv e sleep apnea syndrome 51808919 G47.33 Hypertensive disorder 38 598702 I10 [id number] Dread Sawyer MD [address] [address] 09/11/2024 09:58:15 09/11/2024 10:19:26 Vitamin D deficiency 87552488 E55.9 Hypertensive disorder 38 237470 I10 Obesity 721815528 E66.9 Obstructiv e sleep apnea syndrome 38861234 G47.33 [id number] Dread Sawyer MD [address] [address] 11/11/2024 14:46:25 11/11/2024 15:01:31 Hypertensive disorder 67611956 I10 Vitamin D deficiency 347 80127 E55.9 Obesity 936649959 E66.9 Obstructiv e sleep apnea syndrome 48937297 G47.33 [id number] Dread Sawyer MD [facility] [address] [address] 01/21/2025 09:50:51 01/21/2025 10:04:22 Obstructive sleep apnea syndrome 73792710 G47.33 Hypertensive disorder 38 300925 I10 Vitamin D deficiency 347 05852 E55.9 Obesity 412727705 E66.9 Health Concerns Section Related Observation LastModified by Organization Detai ls LastModified Time None Recorded Concern Status LastModified by Organization Details LastModified Time None Recorded Advance Directives Directive N: Payers Insurance Date Sequence Insurance Name Policy Number Policy David Covered Member ID David Member ID Guarantor Name 11/11/2024 1 [facility] (MEDICAID HMO) [id number] Erinn Miramontes [id number] Erinn Miramontes 01/18/2025 1 [facility] [id number] Erinn Miramontes [id number] Erinn Miramontes Notes Date Note Type Note [...] concern. Dread Sawyer MD [address], [place] [address], [place], [address], [employer] 08/14/2024 11:03:53 09/11/2024 text/html Pt is here for f/u on her meds and chronic conditions. Doing overall well. Denies any problem with meds. Happy with her results. So far, 8 lbs wt loss on it. Pt has OSMIN and is on Cpap for it. Pt denies any issue with her heart rate/palpitation concern. Dread Sawyer MD [address], [place], [address], [employer] 09/11/2024 10:20:12 11/11/2024 text/html Pt is here for f/u on her meds and chronic conditions. Doing overall well. Denies any problem with meds. Happy with her results. So far, 7 lbs wt loss on it. Pt has OSMIN and is on Cpap for it. Pt denies any issue with her heart rate/palpitation concern. Dread Sawyer MD [address], [address], [place], [address], [email or web address] 11/11/2024 15:03:48 01/21/2025 text/html Pt is here [...] Sawyer MD [address], [place], [address], [email or web address] 01/21/2025 10:06:18 OBGyn Episode No OBEpisode recorded.
--- OUTSIDE RECORDS SUMMARY | 2025-02-26 07:17 | XMS_ITS | Data Portability ---
Author Organization [facility], [place] Address [address] [place] [address] Assessment Encounter Date Assessment Date Assessment LastModified [...] provider referral 2022 023 [email or web address] Mesha Bauer [facility] [employer], [address] [facility] , [address], [address], 4 13:58:00 Procedures None recorded. Surgeries None recorded. Imaging None recorded. Medication Orders None recorded. Patient TargetsNo targets recorded. Patient InstructionsNo instructions recorded. Reason for Referral Primary Care Provider Referr al for Hypertensive disorder Referring Physician: Meli Penny, DISPATCHER [employer]LECT[employer], Encounter Date: 03/29/2023 Results Created Date Observation [...] nathalie: Gio Fernandez Colle cted: 03/29 1707 [facility] Order ing Locat ion: [place] Patho logy [...] as clini radha petersen nted. Not Available [facility] (Lab) [address], [place], [address], 03/31/2023 22:01:42 03/29/20 23 03/29/2023 TRICH OMONA S VAGIN BENNY (RRNA ) trichomonas vaginalis ribosomal RNA (rrna) Negati ve negati ve Not Available [facility] (Lab) [address], [place], [address], 03/31/2023 22:01:43 03/29/20 23 03/29/2023 CT/GC (ERIC) , THINP REP VIAL chlamydia trachomatis, PCR Negati ve negati ve Not Available [facility] (Lab) [address] [place], [address], 03/31/2023 22:01:43 03/29/20 23 03/29/2023 CT/GC (ERIC) , THINP REP VIAL neisseria gonorrhoeae, PCR Negati ve negati ve Not Available [facility] (Lab) [address] [place], [address], 03/31/2023 22:01:43 Result Notes None recorded. Procedures Surgical History Date Name Laterality Status Provider Name and Address Organization Details Recorded Time Laparoscopy completed Lisa Murcia [facility] 03/29/2023 16:24:24 Imaging Results [...] Address Organization Details Last Updated DateTime 03/29/2023 062850.86 g 48.1 kg/m2 162.56 cm 164/110 mm[Hg] Lisa Navarro [facility] 03/29/2023 16:29:24 Social History Question Answer Notes LastModified by Organizat ion Details LastModified Time Tobacco Smoking Status Never Smoker Lisawatson Navarro [facility] 03/29/2023 16:26:22 Are You Blind [...] Or The Highest Degree You Have Received? 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 No Information not available 03/29/2023 What is your exercise level? Occasional Information not available 03/29/2023 Mental Status Question Answer Note LastModified by Organization D etails LastModified Time Do you feel stressed (tense, restless, nervous, or anxious, or unable to sleep at night)? [id number] Information not available 03/29/2023 Family History Relationship [...] ICD10 Code Diagnosis IMO Codes Diagnosis Note [id number] Meli Penny , [facility] [address] [address] 03/29/2023 16:20:41 03/29/2023 16:57:18 Gynecologic examination 81677501 Z01.419 Take Calcium with Vitamin D 1200mg [...] Labs PCP will order Hypertensive disorder 38 927633 I10 ED precaution s reviewed.C ontinue taking BP medication s until get into see PCP.Two options given that take her insurance. Risks of HTN and organ perfusion/ failure acute/house nurse cass.Unders tanding verbalized .Agreeable to plan of care. Contracept ion care management 501517814 Z30.9 Mirena IUD expires middle of April [...] David Member ID Guarantor Name 04/03/2023 1 [employer] [facility] (MEDICAID HMO) [id number] Erinn Miramontes [id number] Erinn Miramontes 03/15/2023 1 [facility] - DOS ON OR AFTER 20 (MEDICAID REPLACEMENT - HMO) Erinn Miramontes [id number] Erinn Miramontes Notes Date Note Type Note [...] smears. Meli Penny, [facility] [address], [place], [address], [facility] 03/29/2023 16:54:56 OBGyn Episode Ob Episode Information Episode Created Date Number of Fetuses Patient Bloodtype Patient rh Status Prepregnancy Weight lbs Domestic Partner Domestic Partner Phone Father Name Billboard Erector Status 03/29/20 23 1 CLOSED Fetus Data First Name Last Name Admitted to NICU Weight (g) Sex Living Outcome Pediatric Complications Fetus ID Race Codes Race Delivery Type 3883.65 4704 F Full Term 96127 Vaginal Delivery Yaw Calculation Initial Yaw Date [...] Domestic Partner Domestic Partner Phone Father Name Billboard Erector Status 03/29/20 23 1 CLOSED Fetus Data First Name Last Name Admitted to NICU Weight (g) Sex Living Outcome Pediatric Complications Fetus ID Race Codes Race Delivery Type 2494.75 6 F Prematur e 74795 Vaginal Delivery Yaw Calculation Initial Yaw Date [...] Domestic Partner Domestic Partner Phone Father Name Billboard Erector Status 03/29/20 23 1 CLOSED Fetus Data First Name Last Name Admitted to NICU Weight (g) Sex Living Outcome Pediatric Complications Fetus ID Race Codes Race Delivery Type 2352.78 1704 F Prematur e [address]6815 Vaginal Delivery Yaw Calculation Initial Yaw Date [...] Domestic Partner Domestic Partner Phone Father Name Billboard Erector Status 03/29/20 23 1 CLOSED Fetus Data First Name Last Name Admitted to NICU Weight (g) Sex Living Outcome Pediatric Complications Fetus ID Race Codes Race Delivery Type 3628.73 6 M Full Term 40825 Vaginal Delivery Yaw Calculation Initial Yaw Date [...]
--- OUTSIDE RECORDS SUMMARY | 2025-02-26 07:17 | XMS_ITS | Clinical Summary ---
Author Organization [facility] Address [address] [place] [address] Care Team Providers Care Cover Machine Operator Name Role Phone Unavailable Primary Care Provider [...]
--- OUTSIDE RECORDS SUMMARY | 2025-02-26 07:17 | XMS_ITS | Continuity of Care Document ---
Author Organization [place] - [facility] Address [address] [place] [address] Care Team Providers Care Malware Analyst Name Role Phone DREAD SAWYER Primary Care Provider [phone] Assessment Encounter Date Assessment Date Assessment LastModified [...] in 2 months. Annual labs in 06/26. [email or web address] Not available 01/21/2025 10:05:21 Plan of Treatment Reminders Order Date Submit Date Provider Last Modified By Organization Details Last Modified Time Details Appointments Any 15 2024 02:30P Twin Sawyer MD Not available Not available Not available Lab None recorded. Referral None recorded. Procedures None recorded. Surgeries None recorded. Imaging None recorded. Medication Orders phentermi ne 30 mg capsule 2024 [email or web address] [facility] #[id number], [address], [phone], 01/21/2025 10:01:40 Zepbound 2.5 mg/0.5 mL subcutane ous pen injector 2024 [facility] #07889, [address], [id number], 01/21/2025 10:02:37 amlodipin e 5 mg tablet 2024 [facility] #75683, [address], [id number], 01/21/2025 10:01:03 metoprolo l succinate ER 25 mg tablet,ex tended release 24 hr 2024 [facility] #20050, [address], [phone], 01/21/2025 10:01:05 ergocalci ferol (vitamin D2) 1,250 mcg (50,000 unit) capsule [address] [facility] #01821, [address], [phone], 01/21/2025 10:01:02 Patient TargetsNo targets recorded. Patient Instructions Encounter Date Encounter Id Patient Instructions Last Modified By Organization Details Last Modified Time 01/21/2025 [id number] When You Want to Lose Weight: Care Instructions [email or web address] Not available 01/21/2025 10:00:54 Reason for Referral None Reported. Results Created Date Observation Date Name Description Value Unit Range Abnormal Flag Note LastModifiedBy Organization Detail LastModifiedTime 01/31/2001/30/2025 US, abdom en + pelvi s No observ ation record ed. [facility] [address], [place], [address], 01/31/2025 08:43:33 Result Notes None recorded. Problems Name Problem SNOMED Code Status Onset Date Resolution Date Notes Provider Name and Address Organization Details Recorded Time Hypertensive disorder 78640207 Active 2018 Not Available [facility] 3 20:59:55 Obesity 628686797 Active 2018 Not Available [facility] 3 20:59:55 Vitamin D deficiency 37064260 Active 2018 Not Available [facility] 3 20:59:54 Obstructive sleep apnea syndrome 50229942 Active 2023 Mahendra Parks MD [address] [place] [address], [address] , [employer] 4 09:38:47 Notes:Medical History: Early REM onset Obesity with moderate OSAHS, AHI = 16, 08/03/23, on autoCPAP c/o IVRC Hypertension Hepatic hemangiomas PLMD Vit D deficiency Right plantar fasciitis Right calcaneal spur Procedure History: Cholecystectomy 2010 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 Procedures Surgical History Date Name Laterality Status Provider Name and Address Organization Details Recorded Time 04/03/19 24 Date of Last Pap Smear completed Lucrecia Kneney RN [employer] 07/21/2023 10:05:19 04/03/19 14 Gallbladder Surgery completed Not Available [facility] 06/01/2022 20:58:20 Imaging Results None recorded. Procedure Notes None recorded. Medical Equipment None Reported. Allergies Allergen ID Allergen Name Allergen Category Reaction Reaction Severity Criticality Documentation Date Start Date Code Code System Note Provider Name and Address Organization Details Recorded Time 15137 grape flavor food,medi cation swelling severe Not available 06/01/2022 Not Available [facility] 3 21:01:57 Medications Name Sig [...] DateTime 01/21/2025 134/80 mm[Hg] Twin Starks [address] [facility], [facility] [address], [place], [address], [facility] [employer] 01/21/2025 10:04:29 Date Recorded Body height Body mass index (BMI) Body weight Body temperature Oxygen saturation Heart rate Provider Name and Address Organization Details Last Updated DateTime 162.56 cm 35.4 kg/m2 46978.7 8 g 97.4 [degF] 99 % 67 /min Lorraine Yanez RN [facility] [employer] [facility] 09:56:44 Social History Question Answer Notes LastModified by Organization Details LastModified Time Tobacco Smoking Status Never Smoker Not Available [facility] 06/01/2022 20:58:14 Do You Have An Advance Directive? No MIGRATION.030549962 Information not available 06/01/2022 Do You Wear A Helmet When Biking? Yes MIGRATION.300026 Information not available 06/01/2022 What Is Your Level Of Caffeine Consumption? Occasional One Coffee Maybe Twice A Week [email or web address] Information not available 06/25/2024 In The 14 Days Before Symptom Onset, Have You Had Close Contact With A Laboratory-confi rmed COVID-19 While That Case Was Ill? No MIGRATION.22990509 Information not available 06/01/2022 In The 14 Days Before Symptom Onset, Have You Had Close Contact With A Person Who Is Under Investigation For COVID-19 While That Person Was Ill? No MIGRATION.0301 782876 Information not available 06/01/2022 What Type Of Diet Are You Following? REGULAR MIGRATION.0301 017573 Information not available 06/01/2022 Do You Have [...] Your Family Or Social Situation? No MIGRATION.0301 242555 Information not available 06/01/2022 What Is The Fluoride Status Of Your Home? Unknown MIGRATION.0301 628484 Information not available 06/01/2022 Are There Any Guns Present In Your Home? No MIGRATION.0301 002158 Information not available 06/01/2022 Do You Have A Humidifier? No Information not available 08/16/2023 Do You Use Insect Repellent Routinely? Yes MIGRATION.0301 000849 Information not available 06/01/2022 Where Do You Live? SingleLevelHouse MIGRATION.0301 292265 Information not available 06/01/2022 Do You Have A Medical Power Of Acquisition Professional? No MIGRATION.0301 416902 Information not available 06/01/2022 Do You Have Moisture Problems In Your Home? No Information not available 08/16/2023 What Was The Date Of Your Most Recent Tobacco Screening? 08/16/2023 Information not available 08/16/2023 How Many Children Do You Have? 5 Information not available 07/21/2023 Have You Ever Been Counseled For Unhealthy Alcohol Use? No MIGRATION.0301 519846 Information not available 06/01/2022 Do You Have Any Pets? Yes MIGRATION.0301 295617 Information not available 06/01/2022 What Is Your Relationship Status? MIGRATION.0301 469009 Information not available 06/01/2022 Do You Use Your Seat Belt Or Car Seat Routinely? Yes MIGRATION.0301 682486 Information not available 06/01/2022 Do You Have Smoke And Carbon Monoxide Detectors In Your Home? Yes MIGRATION.0301 272802 Information not available 06/01/2022 Are You Passively Exposed To Smoke? No MIGRATION.0301 876663 Information not available 06/01/2022 Are There Any Smokers In Your House? No MIGRATION.0301 185615 Information not available 06/01/2022 Do You Participate In Social Media? Yes MIGRATION.0301 068150 Information not available 06/01/2022 What Types Of Sporting Activities Do You Participate In? Walk,tredmill, Stair Master Information not available 07/21/2023 Do You Use Sunscreen Routinely? Yes MIGRATION.0301 868791 Information not available 06/01/2022 Has Tobacco Cessation Counseling Been Provided? No MIGRATION.0301 187204 Information not available 06/01/2022 Have You Recently Traveled Abroad? No MIGRATION.0301 670151 Information not available 06/01/2022 Are You Currently In School? No MIGRATION.0301 279531 Information not available 06/01/2022 Do You Have Any Dietary Restrictions? No MIGRATION.0301 108534 Information not available 06/01/2022 Sex: Female Functional Status Question Answer Note LastModified by Organizat ion Details LastModified Time Do you use any illicit or recreational drugs? No MIGRATION.12777 10255 Information not available 06/01/2022 Do you or have you ever used any other forms of tobacco or nicotine? No MIGRATION.34301 71253 Information not available 06/01/2022 What is your level of alcohol consumption? Occasional MIGRATION.11386 96488 Information not available 06/01/2022 Have you been exposed to chemicals or toxins? 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 Occasional Information not available 07/21/2023 Mental Status Question Answer Note LastModified by Organizat ion Details LastModified Time Do you feel stressed (tense, restless, nervous, or anxious, or unable to sleep at night)? [id number] MIGRATION.[id number] 6 Information not available 06/01/2022 Family History Relationship Description Onset Age of this Age Resolved Age Notes LastModified by Organization Details LastModified Time Mother Diabetes mellitus MIGRATION.325 [id number] Not available 06/01/2022 20:58:22 Mother Hypertensive disorder 54 MIGRATION.491 4847031 Not available 06/01/2022 20:58:22 Father Hypertensive disorder DAD PASSED IN 1997 MIGRATION.183 8815296 Not available 06/01/2022 20:58:22 Mother Obstructive sleep [...] ICD10 Code Diagnosis IMO Codes Diagnosis Note [id number] Dread Sawyer MD [facility] [address] [address] 01/21/2025 09:50:51 01/21/2025 10:04:22 Obstructive sleep apnea syndrome 89454435 G47.33 Hypertensive disorder 38 822176 I10 Vitamin D deficiency 347 04603 E55.9 Obesity 281536459 E66.9 Health Concerns Section Related Observation LastModified by Organization Detai ls LastModified Time None Recorded Concern Status LastModified by Organization Details LastModified Time None Recorded Payers Encounter Date Sequence Insurance Name Policy Number Policy David Covered Member ID David Member ID Guarantor Name 01/21/2025 1 [facility] [id number] Erinn Miramontes [id number] Erinn Miramontes Notes Date Note Type Note [...] rate/palpitatio n concern. Dread Sawyer MD [address] [facility], [facility] [address], [place], [address], [facility] [employer] 01/21/2025 10:06:18 OBGyn Episode No OBEpisode recorded.
== END 2025-02-26 07:14 | disposition home or self-care (01) ==
LOC: ANHLAB 07:14
PROVIDERS: Visit Provider Obstetrics & Gynecology
DX: O03.9 Complete or unspecified spontaneous abortion without complication (principal); Z3A.00 Weeks of gestation of pregnancy not specified
CPT/HCPCS: 36415; 84702

== ENCOUNTER 2025-03-10 01:28 | Day surgery (SDC) | payer OTHER, SELFPAY ==
[2025-03-05 17:11] VITALS: BMI 38.0
--- NOTE | 2025-03-05 17:14 | SUR.PREOP ---
[facility] has started construction of its new state of the art ER which will open Spring 2026. With this, we anticipate parking may be a challenge for some our surgical patients and families. Parking spaces are limited but are available for all Surgical, obstetrics, and ER patients sharing this lot. If you arrive and find you are having a hard time finding a parking space, please note that we understand the challenges, please drive around the hospital and park near Hospital Entrance 1. When you enter this entrance, you can ask a volunteer to direct or take you back to the surgical waiting area to check in. We appreciate everyone?s understanding of these expected challenges while we build for your future. Report to the Outpatient Waiting Room, entrance under the green pavilion located off [address], at time _1200_ on date 03/06/25. Planned Procedure Time:1400.? Time changes happen often and if your time is changed the preop area will call you the afternoon before. - You and your visitor will be asked to self-screen and do not enter if you have any COVID symptoms. Please call surgeon if you need to reschedule. - A mask is optional within the hospital at this time. Patients may have clear liquids (water, carbonated beverages, clear teas, apple juice) until 3 hours prior to surgery with a maximum of 20 ounces. - No food from midnight until time of surgery and no smoking, or chewing tobacco (or any form of nicotine). No chewing gum, candy or mints. - Infants may have breast milk until 4 hours before surgery, infant formula 6 hours prior to surgery. - Children will be allowed to drink immediately following surgery.? If applicable, please bring a bottle or sippy cup to assist with drinking. Juice, water, soda, and popsicles are readily available.? For infants on formula, please bring formula the day of surgery.? Pacifiers are allowed. Take only the following medications with a SIP of water on the morning of surgery: ___metoprolol, amlodipine DO NOT STOP ANY OF YOUR OTHER PRESCRIPTION MEDICATIONS PRIOR TO SURGERY EXCEPT THE FOLLOWING Hold all vitamins and supplements for 3 days per anesthesiologist. Medications to discontinue per physician na Date to take last dose Please no make-up, nail grenadian, hairspray, perfume, deodorant, or body powder the day of surgery.? No jewelry (including any body piercings) or valuables the day of surgery, leave them at home.? Please take a shower or bath the night before, or the morning of, surgery with an antibacterial soap.? Wear comfortable, loose fitting clothing.? Children are encouraged to wear pajamas. - Jewelry must be removed prior to entering the operating room.? Rings and piercings that are not removed may be cut off. - The hospital will not accept responsibility for valuables.? - Please leave all valuables, including medications, at home the day of surgery. If you are going home after surgery, a licensed regional driver must drive you home.? - NO public transportation without another adult if you receive anesthesia. - We recommend that an adult stay with you for 24 hours following discharge. - We also recommend that you do not drive, make important decision, drink alcoholic beverages, or take any drugs that were not prescribed by your health care provider for at least 24 hours after your discharge time. For Pediatric surgeries, we recommend two adults accompany the child home. Follow any additional instructions given to you from your surgeon. Telephone instructions given to _patient_and asked if any additional questions and then verbalized understanding. Patient advised to call surgeon office or pre surgery nurse liaison [phone] if any additional questions.
--- OUTSIDE RECORDS SUMMARY | 2025-03-06 02:44 | XMS_ITS | Data Portability ---
Author Organization [facility], [place] Address [address] [place] [address] Assessment Encounter Date Assessment Date Assessment LastModified [...] provider referral 2022 023 [email or web address] Mesha Bauer ENGINE WATCHMAN, [address] [facility] , [address], [address], 13:58:00 Procedures None recorded. Surgeries None recorded. Imaging None recorded. Medication Orders None recorded. Patient TargetsNo targets recorded. Patient InstructionsNo instructions recorded. Reason for Referral Primary Care Provider Referr al for Hypertensive disorder Referring Physician: Meli Penny, OUTSIDE SALES MANAGER, Encounter Date: 03/29/2023 Results Created Date Observation [...] nathalie: Gio Fernandez Colle cted: 03/29 1707 ENGINE WATCHMAN Order ing Locat ion: [place] [facility] [...] as clini radha petersen nted. Not Available [facility] (Lab) [address], [place], [address], 03/31/2023 22:01:42 03/29/20 23 03/29/2023 TRICH OMONA S VAGIN BENNY (RRNA ) trichomonas vaginalis ribosomal RNA (rrna) Negati ve negati ve Not Available [facility] (Lab) [address], [place], [address], 03/31/2023 22:01:43 03/29/20 23 03/29/2023 CT/GC (ERIC) , THINP REP VIAL chlamydia trachomatis, PCR Negati ve negati ve Not Available [facility] (Lab) [address] [place], [address], 03/31/2023 22:01:43 03/29/20 23 03/29/2023 CT/GC (ERIC) , THINP REP VIAL neisseria gonorrhoeae, PCR Negati ve negati ve Not Available [facility] (Lab) [address] [place], [address], 03/31/2023 22:01:43 Result Notes None recorded. Procedures Surgical History Date Name Laterality Status Provider Name and Address Organization Details Recorded Time Laparoscopy completed Lisa Mur[facility] 03/29/2023 16:24:24 Imaging Results None recorded. [...] Address Organization Details Last Updated DateTime 03/29/2023 565740.86 g 48.1 kg/m2 162.56 cm 164/110 mm[Hg] Lisa Navarro [facility] 03/29/2023 16:29:24 Social History Question Answer Notes LastModified by Organizat ion Details LastModified Time Tobacco Smoking Status Never Smoker Lisawatson Navarro [facility] 03/29/2023 16:26:22 Are You [...] Or The Highest Degree You Have Received? 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 No Information not available 03/29/2023 What is your exercise level? Occasional Information not available 03/29/2023 Mental Status Question Answer Note LastModified by Organization D etails LastModified Time Do you feel stressed (tense, restless, nervous, or anxious, or unable to sleep at night)? [id number] Information not available 03/29/2023 Family History Relationship [...] ICD10 Code Diagnosis IMO Codes Diagnosis Note [id number] Meli Penny , [facility] [address] [address] 03/29/2023 16:20:41 03/29/2023 16:57:18 Gynecologic examination 47382452 Z01.419 Take Calcium with Vitamin D 1200mg [...] Labs PCP will order Hypertensive disorder 38 838837 I10 ED precaution s reviewed.C ontinue taking BP medication s until get into see PCP.Two options given that take her insurance. Risks of HTN and organ perfusion/ failure acute/shear operator automatic cass.Unders tanding verbalized .Agreeable to plan of care. Contracept ion care management [id number] Z30.9 Mirena IUD expires middle of April [...] David Member ID Guarantor Name 04/03/2023 1 [facility] (MEDICAID HMO) [id number] Erinn Miramontes [id number] Erinn Miramontes 03/15/2023 1 [facility] - DOS ON OR AFTER 20 (MEDICAID REPLACEMENT - HMO) Erinn Miramontes [id number] Erinn Miramontes Notes Date Note Type Note [...] smears. Meli Penny, [facility] [address], [place], [address], [facility] 03/29/2023 16:54:56 OBGyn Episode Ob Episode Information Episode Created Date Number of Fetuses Patient Bloodtype Patient rh Status Prepregnancy Weight lbs Domestic Partner Domestic Partner Phone Father Name Cigar Maker Status 03/29/20 23 1 CLOSED Fetus Data First Name Last Name Admitted to NICU Weight (g) Sex Living Outcome Pediatric Complications Fetus ID Race Codes Race Delivery Type 3883.65 4704 F Full Term 84748 Vaginal Delivery Yaw Calculation Initial Yaw Date [...] Domestic Partner Domestic Partner Phone Father Name Cigar Maker Status 03/29/20 23 1 CLOSED Fetus Data First Name Last Name Admitted to NICU Weight (g) Sex Living Outcome Pediatric Complications Fetus ID Race Codes Race Delivery Type 2494.75 6 F Prematur e 02036 Vaginal Delivery Yaw Calculation Initial Yaw Date [...] Domestic Partner Domestic Partner Phone Father Name Cigar Maker Status 03/29/20 23 1 CLOSED Fetus Data First Name Last Name Admitted to NICU Weight (g) Sex Living Outcome Pediatric Complications Fetus ID Race Codes Race Delivery Type 2352.78 1704 F Prematur e 28885 Vaginal Delivery Yaw Calculation Initial Yaw Date [...] Domestic Partner Domestic Partner Phone Father Name Cigar Maker Status 03/29/20 23 1 CLOSED Fetus Data First Name Last Name Admitted to NICU Weight (g) Sex Living Outcome Pediatric Complications Fetus ID Race Codes Race Delivery Type 3628.73 6 M Full Term [address]3064 Vaginal Delivery Yaw Calculation Initial Yaw Date [...]
--- OUTSIDE RECORDS SUMMARY | 2025-03-06 02:44 | XMS_ITS | Continuity of Care Document ---
Author Organization [place] - [facility] [place] Address [address] [place] [address] Care Team Providers Care Motor Teacher Name Role Phone DREAD SAWYER Primary Care Provider [phone] Assessment Encounter Date Assessment Date Assessment LastModified [...] in 2 months. Annual labs in 06/26. [email or web address] Not available 01/21/2025 10:05:21 Plan of Treatment Reminders Order Date Submit Date Provider Last Modified By Organization Details Last Modified Time Details Appointments None recorded. Lab None recorded. Referral None recorded. Procedures None recorded. Surgeries None recorded. Imaging None recorded. Medication Orders phentermine 30 mg capsule 2024 [email or web address] [facility] #70229, [address] [place] [address], [id number], 10:01:40 Zepbound 2.5 mg/0.5 mL subcutaneou s pen injector 2024 [facility] #14282, [address] [facility], [place], [place], [id number], 10:02:37 amlodipine 5 mg tablet 2024 [facility] #02990, [address] [facility] [address] [place] [address], [id number], 10:01:03 metoprolol succinate ER 25 mg tablet,exte nded release 24 hr 2024 [facility] #29646, [address] [place] [address], [id number], 10:01:05 ergocalcife rol (vitamin D2) 1,250 mcg (50,000 unit) capsule 2024 [facility] #48725, [address] [facility] [address] [place] [address], [id number], 10:01:02 Patient TargetsNo targets recorded. Patient Instructions Encounter Date Encounter Id Patient Instructions Last Modified By Organization Details Last Modified Time 01/21/2025 [id number] When You Want to Lose Weight: Care Instructions [email or web address] Not available 01/21/2025 10:00:54 Reason for Referral None Reported. Results Created Date Observation Date Name Description Value Unit Range Abnormal Flag Note LastModifiedBy Organization Detail LastModifiedTime 01/31/2001/30/2025 US, abdom en + pelvi s No observ ation record ed. [facility] [address] [facility], [place], [address], 01/31/2025 08:43:33 Result Notes None recorded. Problems Name Problem SNOMED Code Status Onset Date Resolution Date Notes Provider Name and Address Organization Details Recorded Time Hypertensive disorder 07486287 Active 2018 Not Available [facility] 3 20:59:55 Obesity 750342954 Active 2018 Not Available [facility] 3 20:59:55 Vitamin D deficiency 77364180 Active 2018 Not Available [facility] 3 20:59:54 Obstructive sleep apnea syndrome 71686105 Active 2023 Mahendra Parks MD [address] 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 Procedures Surgical History Date Name Laterality Status Provider Name and Address Organization Details Recorded Time 04/03/19 24 Date of Last Pap Smear completed Lucrecia Kenney RN [employer] 07/21/2023 10:05:19 04/03/19 14 Gallbladder Surgery completed Not Available [facility] 06/01/2022 20:58:20 Imaging Results None recorded. Procedure Notes None recorded. Medical Equipment None Reported. Allergies Allergen ID Allergen Name Allergen Category Reaction Reaction Severity Criticality Documentation Date Start Date Code Code System Note Provider Name and Address Organization Details Recorded Time 56693 grape flavor food,medi cation swelling severe Not available 06/01/2022 Not Available [facility] 3 21:01:57 Medications Name Sig Start Date [...] Not Available amlodipin e 5 mg tablet TAKE 1 TABLET BY MOUTH EVERY DAY DIRECTED active Not Available Not Available No t Available acetamino phen 500 mg tablet TAKE 2 TABLETS BY MOUTH THREE TIMES DAILY NEEDED FOR PAIN 10/30 completed Not Available Not Available Not Available phentermi ne 30 mg capsule TAKE 1 CAPSULE BY MOUTH EVERY DAY IN THE MORNING active Not Available Not Available No t Available amoxicill in 875 mg tablet 08/29 completed [...] 25 mg tablet,ex tended release 24 hr TAKE 1 TABLET BY MOUTH EVERY DAY DIRECTED active Not Available Not Available No t Available ergocalci ferol (vitamin D2) 1,250 mcg (50,000 [...] completed Not Available Not Available Not Available nitrofura ntoin monohydra te/macroc rystals 100 mg capsule TAKE 1 CAPSULE BY MOUTH EVERY 12 HOURS FOR 5 DAYS active Not Available Not Available No t Available Weporschevy 0.25 mg/0.5 mL subcutane ous pen injector Inject 0.25 mg every week by subcutan eous route as directed for 30 days. 11/13 completed PA not approved by [facility] e Not Available Not Available Not Available Zepbound 2.5 mg/0.5 mL subcutane ous pen injector Inject 2.5 mg every week by subcutan eous route as directed for 30 days. 2024 active Not Available Not Available Not Avai lable Vitals Date Recorded Systolic And Diastolic Provider Name and Address Organization Details Last Updated DateTime 01/21/2025 134/80 mm[Hg] [employer] [address] [place] [address], [facility] [address], [place], [address], [employer] 01/21/2025 10:04:29 Date Recorded Body height Body mass index (BMI) Body weight Body temperature Oxygen saturation Heart rate Provider Name and Address Organization Details Last Updated DateTime 162.56 cm 35.4 kg/m2 58463.7 8 g 97.4 [degF] 99 % 67 /min Lorraine Yanez RN [employer] [facility] [employer] 09:56:44 Social History Question Answer Notes LastModified by Organization Details LastModified Time Tobacco Smoking Status Never Smoker Not Available [facility] 06/01/2022 20:58:14 Do You Have An Advance Directive? No [id number] Information not available 06/01/2022 Do You Wear A Helmet When Biking? Yes MIGRATION.22990509 Information not available 06/01/2022 What Is Your Level Of Caffeine Consumption? Occasional One Coffee Maybe Twice A Week [email or web address] Information not available 06/25/2024 In The 14 Days Before Symptom Onset, Have You Had Close Contact With A Laboratory-confi rmed COVID-19 While That Case Was Ill? No MIGRATION.22990509 Information not available 06/01/2022 In The 14 Days Before Symptom Onset, Have You Had Close Contact With A Person Who Is Under Investigation For COVID-19 While That Person Was Ill? No MIGRATION.300026 Information not available 06/01/2022 What Type Of Diet Are You Following? REGULAR MIGRATION.0301 [id number] Information not available 06/01/2022 Do You Have [...] Your Family Or Social Situation? No MIGRATION.0301 [id number] Information not available 06/01/2022 What Is The Fluoride Status Of Your Home? Unknown MIGRATION.0301 600186 Information not available 06/01/2022 Are There Any Guns Present In Your Home? No MIGRATION.0301 [id number] Information not available 06/01/2022 Do You Have A Humidifier? No Information not available 08/16/2023 Do You Use Insect Repellent Routinely? Yes MIGRATION.0301 615661 Information not available 06/01/2022 Where Do You Live? SingleLevelHouse MIGRATION.0301 374597 Information not available 06/01/2022 Do You Have A Medical Power Of University Intern? No MIGRATION.0301 233835 Information not available 06/01/2022 Do You Have Moisture Problems In Your Home? No Information not available 08/16/2023 What Was The Date Of Your Most Recent Tobacco Screening? 08/16/2023 Information not available 08/16/2023 How Many Children Do You Have? 5 Information not available 07/21/2023 Have You Ever Been Counseled For Unhealthy Alcohol Use? No MIGRATION.0301 030759 Information not available 06/01/2022 Do You Have Any Pets? Yes MIGRATION.0301 016853 Information not available 06/01/2022 What Is Your Relationship Status? MIGRATION.0301 952850 Information not available 06/01/2022 Do You Use Your Seat Belt Or Car Seat Routinely? Yes MIGRATION.0301 713048 Information not available 06/01/2022 Do You Have Smoke And Carbon Monoxide Detectors In Your Home? Yes MIGRATION.0301 601219 Information not available 06/01/2022 Are You Passively Exposed To Smoke? No MIGRATION.0301 780377 Information not available 06/01/2022 Are There Any Smokers In Your House? No MIGRATION.0301 582301 Information not available 06/01/2022 Do You Participate In Social Media? Yes MIGRATION.0301 117619 Information not available 06/01/2022 What Types Of Sporting Activities Do You Participate In? Walk,tredmill, Stair Master Information not available 07/21/2023 Do You Use Sunscreen Routinely? Yes MIGRATION.0301 613550 Information not available 06/01/2022 Has Tobacco Cessation Counseling Been Provided? No MIGRATION.0301 456436 Information not available 06/01/2022 Have You Recently Traveled Abroad? No MIGRATION.0301 729340 Information not available 06/01/2022 Are You Currently In School? No MIGRATION.0301 457002 Information not available 06/01/2022 Do You Have Any Dietary Restrictions? No MIGRATION.0301 295820 Information not available 06/01/2022 Sex: Female Functional Status Question Answer Note LastModified by Organizat ion Details LastModified Time Do you use any illicit or recreational drugs? No MIGRATION.61844 21350 Information not available 06/01/2022 Do you or have you ever used any other forms of tobacco or nicotine? No MIGRATION.00193 94936 Information not available 06/01/2022 What is your level of alcohol consumption? Occasional MIGRATION.86516 95562 Information not available 06/01/2022 Have you been exposed to chemicals or toxins? 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 Occasional Information not available 07/21/2023 Mental Status Question Answer Note LastModified by Organizat ion Details LastModified Time Do you feel stressed (tense, restless, nervous, or anxious, or unable to sleep at night)? [id number] MIGRATION.[id number] 6 Information not available 06/01/2022 Family History Relationship Description Onset Age of this Age Resolved Age Notes LastModified by Organization Details LastModified Time Mother Diabetes mellitus MIGRATION.256 [id number] Not available 06/01/2022 20:58:22 Mother Hypertensive disorder 54 MIGRATION.814 [id number] Not available 06/01/2022 20:58:22 Father Hypertensive disorder DAD PASSED IN 1997 MIGRATION.335 [id number] Not available 06/01/2022 20:58:22 Mother Obstructive sleep [...] ICD10 Code Diagnosis IMO Codes Diagnosis Note [id number] Dread Sawyer MD [facility] [place] [address] 01/21/2025 09:50:51 01/21/2025 10:04:22 Obstructive sleep apnea syndrome 86467987 G47.33 Hypertensive disorder 38 007014 I10 Vitamin D deficiency 347 91496 E55.9 Obesity 632624603 E66.9 Health Concerns Section Related Observation LastModified by Organization Detai ls LastModified Time None Recorded Concern Status LastModified by Organization Details LastModified Time None Recorded Payers Encounter Date Sequence Insurance Name Policy Number Policy David Covered Member ID David Member ID Guarantor Name 01/21/2025 1 [facility] [id number] Erinn Miramontes [id number] Erinn Miramontes Notes Date Note Type Note [...] heart rate/palpitatio n concern. Dread Sawyer MD [address] [place] [address] [address], [place], [address], [facility] [email or web address] 01/21/2025 10:06:18 OBGyn Episode No OBEpisode recorded.
--- OUTSIDE RECORDS SUMMARY | 2025-03-06 02:44 | XMS_ITS | Clinical Summary ---
Author Organization [facility] Address [address] [place] [address] Care Team Providers Care Military Logistics Specialist Name Role Phone Unavailable Primary Care [...]
--- NOTE | 2025-03-06 08:27 | PM.IMHP2 ---
H&P: HPI History of Present Illness Date/Time: 03/06/25 08:27 Chief Complaint: Here for D&C Narrative: 40 y/o here for her first visit to the office. She was seen in the ED on 01/30/25 because of some upper abdominal pain. She was surprised to be told of a positive test at that time. She has an IUD that was placed about 10 years ago. Her last menstrual period started 12/23/2024. However, the IUD was found to be malpositioned. It was removed in the office. Beta hCG levels continued to rise, with the most recent level at 40,721 mIU/mL on 02/26/25. However, ultrasound exam shows only a gestational sac within the uterus. There is no free fluid noted. There had been a simple appearing adnexal cyst noted on an earlier ultrasound exam, but which is no longer visible. There is also some heterogeneous echogenic material adjacent to the gestational sac. She has no bleeding. Her blood type is O-positive. I have recommended suction D&C. Review of Systems Review of Systems: All systems reviewed & are unremarkable except as noted in HPI and below PMFSH Past Medical History Medical History Hypertension Surgical History Surgical History Hx laparoscopic cholecystectomy Social History Social History Smoking status: Never smoker Living arrangements: with family Meds Home Medications and Allergies Home Medications ?Medication ?Instructions ?Recorded ?Confirmed ?Type metoprolol succinate 25 mg 12.5 mg PO DAILY 05/21/21 03/05/25 History tablet,extended release 24 hr amlodipine 5 mg tablet 5 mg PO DAILY 03/05/25 03/05/25 History Allergies Allergy/AdvReac Type Severity Reaction Status Date / Time grape Allergy Intermediate swelling Verified 03/05/25 17:08 Exam Const: Orientation/consciousness: patient oriented x3 Other: Well-developed, well-nourished female in no acute distress. Neck: Thyroid: thyroid normal Lymphatic: no lymphadenopathy noted (in neck, axilla or inguinal nodes) Resp: Effort & Inspection: normal respiratory effort Auscultation: clear to auscultation bilaterally Cardio: Rate: regular rate Rhythm: regular rhythm Heart sounds: S1 normal heart sound present and S2 normal heart sound present GI: Other: ABD: Soft, nontender, nondistended. No guarding or rebound tenderness. No hepatosplenomegaly. : General: Yes no CVA tenderness Other: External genitalia: normal female hair distribution, without lesion. Urethral meatus: no lesion, non prolapsed. Bladder: no mass, nontender Vagina: well-estrogenized, without lesion or discharge. No cystocele or rectocele. Cervix: no lesion or discharge. Uterus: small, anteverted, freely mobile, nontender Adnexa: no mass or tenderness. Anus/perineum: no lesions, nontender Back/Spine/Pelvis: Back: no CVA tenderness Skin: General skin exam: normal color and no rashes or lesions noted Neuro: General: patient oriented x3 Extrem: Other: Extremities: nontender with no edema Psych: Mental Status: mental status grossly normal Affect: normal affect Assessment and Plan Assessment and plan (1) SAB (spontaneous ): Code(s): O03.9 - Complete or unspecified spontaneous without complication Status: Acute Assessment and Plan: A: Missed spontaneous . We also have to consider the possibilities of ectopic gestation and molar gestation. P: I have recommended dilation and suction curettage. She understands risks of surgery to include risks of anesthesia, risks of pain, infection, bleeding, blood products, thromboembolic phenomena and damage to adjacent structures such as bowel, bladder, ureters, blood vessels and nerves. She understands all these risks and elects to proceed with surgery.
--- NOTE | 2025-03-07 09:28 | PC.NURSE ---
[facility] has started construction of its new state of the art ER which will open Spring 2026. With this, we anticipate parking may be a challenge for some our surgical patients and families. Parking spaces are limited but are available for all Surgical, obstetrics, and ER patients sharing this lot. If you arrive and find you are having a hard time finding a parking space, please note that we understand the challenges, please drive around the hospital and park near Hospital Entrance 1. When you enter this entrance, you can ask a volunteer to direct or take you back to the surgical waiting area to check in. We appreciate everyone?s understanding of these expected challenges while we build for your future. Report to the Outpatient Waiting Room, entrance under the green pavilion located off [address], at time ___12:00PM____ on date ___03/10/25____. Planned Procedure Time: __2:00PM .? Time changes happen often and if your time is changed the preop area will call you the afternoon before. - You and your visitor will be asked to self-screen and do not enter if you have any COVID symptoms. Please call surgeon if you need to reschedule. - A mask is optional within the hospital at this time. Patients may have clear liquids (water, carbonated beverages, clear teas, apple juice) until 3 hours prior to surgery (11:00am) with a maximum of 20 ounces. - No food from midnight until time of surgery and no smoking, or chewing tobacco (or any form of nicotine). No chewing gum, candy or mints. Take only the following medications with a SIP of water on the morning of surgery: ____AMLODIPINE, METOPROLOL DO NOT STOP ANY OF YOUR OTHER PRESCRIPTION MEDICATIONS PRIOR TO SURGERY EXCEPT THE FOLLOWING Hold all vitamins and supplements for 3 days per anesthesiologist. Medications to discontinue per physician ____NONE Date to take last dose Please no make-up, nail german, hairspray, perfume, deodorant, or body powder the day of surgery.? No jewelry (including any body piercings) or valuables the day of surgery, leave them at home.? Please take a shower or bath the night before, or the morning of, surgery with an antibacterial soap.? Wear comfortable, loose fitting clothing.? Children are encouraged to wear pajamas. - Jewelry must be removed prior to entering the operating room.? Rings and piercings that are not removed may be cut off. - The hospital will not accept responsibility for valuables.? - Please leave all valuables, including medications, at home the day of surgery. If you are going home after surgery, a licensed yard truck driver must drive you home.? - NO public transportation without another adult if you receive anesthesia. - We recommend that an adult stay with you for 24 hours following discharge. - We also recommend that you do not drive, make important decision, drink alcoholic beverages, or take any drugs that were not prescribed by your health care provider for at least 24 hours after your discharge time. For Pediatric surgeries, we recommend two adults accompany the child home. Follow any additional instructions given to you from your surgeon. Telephone instructions given to ___PATIENT and asked if any additional questions and then verbalized understanding. Patient advised to call surgeon office or pre surgery nurse liaison [phone] if any additional questions.
--- OUTSIDE RECORDS SUMMARY | 2025-03-10 01:30 | XMS_ITS | Clinical Summary ---
Author Organization [facility] Address [address] [place] [id number] Care Team Providers Care Bull Gang Worker Name Role Phone Unavailable Primary Care Provider [...]
--- OUTSIDE RECORDS SUMMARY | 2025-03-10 01:30 | XMS_ITS | Data Portability ---
Author Organization [facility], [place] Address [address] [place] [address] Assessment Encounter Date Assessment Date Assessment LastModified [...] provider referral 2022 023 [email or web address] Mesha Bauer SODA FOUNTAIN OPERATOR, [address] [facility] [place] , [address], [address], 4 13:58:00 Procedures None recorded. Surgeries None recorded. Imaging None recorded. Medication Orders None recorded. Patient TargetsNo targets recorded. Patient InstructionsNo instructions recorded. Reason for Referral Primary Care Provider Referr al for Hypertensive disorder Referring Physician: Meli Penny, TESTBOARD OPERATOR, Encounter Date: 03/29/2023 Results Created Date Observation [...] nathalie: Gio Fernandez Colle cted: 03/29 1707 SODA FOUNTAIN OPERATOR Order ing Locat ion: [place] [facility] [...] as clini radha petersen nted. Not Available [facility] (Lab) [address], [place], [address], 03/31/2023 22:01:42 03/29/20 23 03/29/2023 TRICH OMONA S VAGIN BENNY (RRNA ) trichomonas vaginalis ribosomal RNA (rrna) Negati ve negati ve Not Available [facility] (Lab) [address], [place], [address], 03/31/2023 22:01:43 03/29/20 23 03/29/2023 CT/GC (ERIC) , THINP REP VIAL chlamydia trachomatis, PCR Negati ve negati ve Not Available [facility] (Lab) [address] [place], [address], 03/31/2023 22:01:43 03/29/20 23 03/29/2023 CT/GC (ERIC) , THINP REP VIAL neisseria gonorrhoeae, PCR Negati ve negati ve Not Available [facility] (Lab) [address] [place], [address], 03/31/2023 22:01:43 Result Notes None recorded. Procedures Surgical History Date Name Laterality Status Provider Name and Address Organization Details Recorded Time Laparoscopy completed Lisa Murcia [facility] 03/29/2023 16:24:24 Imaging Results None recorded. [...] Address Organization Details Last Updated DateTime 03/29/2023 554255.86 g 48.1 kg/m2 162.56 cm 164/110 mm[Hg] Lisa Navarro [facility] 03/29/2023 16:29:24 Social History Question Answer Notes LastModified by Organizat ion Details LastModified Time Tobacco Smoking Status Never Smoker Lisawatson Navarro [facility] 03/29/2023 16:26:22 Are You Blind [...] Or The Highest Degree You Have Received? 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 No Information not available 03/29/2023 What is your exercise level? Occasional Information not available 03/29/2023 Mental Status Question Answer Note LastModified by Organization D etails LastModified Time Do you feel stressed (tense, restless, nervous, or anxious, or unable to sleep at night)? [id number] Information not available 03/29/2023 Family History Relationship [...] ICD10 Code Diagnosis IMO Codes Diagnosis Note [id number] Meli Penny , [facility] [address] [address] 03/29/2023 16:20:41 03/29/2023 16:57:18 Gynecologic examination [id number] Z01.419 Take Calcium with Vitamin D 1200mg [...] Labs PCP will order Hypertensive disorder 38 [id number] I10 ED precaution s reviewed.C ontinue taking BP medication s until get into see PCP.Two options given that take her insurance. 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 Contracept ion care management [id number] Z30.9 Mirena IUD expires middle of April [...] David Member ID Guarantor Name 04/03/2023 1 [employer] [facility] (MEDICAID HMO) [id number] Erinn Miramontes [id number] Erinn Miramontes 03/15/2023 1 [facility] - DOS ON OR AFTER 20 (MEDICAID REPLACEMENT - HMO) Erinn Miramontes [id number] Erinn Miramontes Notes Date Note Type Note [...] smears. Meli Penny, [facility] [address], [place], [address], [facility] 03/29/2023 16:54:56 OBGyn Episode Ob Episode Information Episode Created Date Number of Fetuses Patient Bloodtype Patient rh Status Prepregnancy Weight lbs Domestic Partner Domestic Partner Phone Father Name Circular Ripsaw Operator Status 03/29/20 23 1 CLOSED Fetus Data First Name Last Name Admitted to NICU Weight (g) Sex Living Outcome Pediatric Complications Fetus ID Race Codes Race Delivery Type 3883.65 4704 F Full Term 67002 Vaginal Delivery Yaw Calculation Initial Yaw Date [...] Domestic Partner Domestic Partner Phone Father Name Circular Ripsaw Operator Status 03/29/20 23 1 CLOSED Fetus Data First Name Last Name Admitted to NICU Weight (g) Sex Living Outcome Pediatric Complications Fetus ID Race Codes Race Delivery Type 2494.75 6 F Prematur e 33012 Vaginal Delivery Yaw Calculation Initial Yaw Date [...] Domestic Partner Domestic Partner Phone Father Name Circular Ripsaw Operator Status 03/29/20 23 1 CLOSED Fetus Data First Name Last Name Admitted to NICU Weight (g) Sex Living Outcome Pediatric Complications Fetus ID Race Codes Race Delivery Type 2352.78 1704 F Prematur e 61029 Vaginal Delivery Yaw Calculation Initial Yaw Date [...] Domestic Partner Domestic Partner Phone Father Name Circular Ripsaw Operator Status 03/29/20 23 1 CLOSED Fetus Data First Name Last Name Admitted to NICU Weight (g) Sex Living Outcome Pediatric Complications Fetus ID Race Codes Race Delivery Type 3628.73 6 M Full Term 22559 Vaginal Delivery Yaw Calculation Initial Yaw Date [...]
--- NOTE | 2025-03-10 09:01 | PM.IMHP2 ---
H&P: HPI History of Present Illness Date/Time: 03/10/25 09:01 Chief Complaint: Miscarriage Narrative: 40 y/o here for her first visit to the office. She was seen in the ED on 01/30/25 because of some upper abdominal pain. She was surprised to be told of a positive test at that time. She has an IUD that was placed about 10 years ago. Her last menstrual period started 12/23/2024. However, the IUD was found to be malpositioned. It was removed in the office. Beta hCG levels continued to rise, with the most recent level at 40,721 mIU/mL on 02/26/25. However, ultrasound exam shows only a gestational sac within the uterus. There is no free fluid noted. There had been a simple appearing adnexal cyst noted on an earlier ultrasound exam, but which is no longer visible. There is also some heterogeneous echogenic material adjacent to the gestational sac. She has no bleeding. Her blood type is O positive. I have recommended suction D&C. Review of Systems Review of Systems: All systems reviewed & are unremarkable except as noted in HPI and below PMFSH Past Medical History Medical History Hypertension Surgical History Surgical History Hx laparoscopic cholecystectomy Social History Social History Smoking status: Never smoker Living arrangements: with family Meds Home Medications and Allergies Home Medications ?Medication ?Instructions ?Recorded ?Confirmed ?Type metoprolol succinate 25 mg 12.5 mg PO DAILY 05/21/21 03/05/25 History tablet,extended release 24 hr amlodipine 5 mg tablet 5 mg PO DAILY 03/05/25 03/05/25 History Allergies Allergy/AdvReac Type Severity Reaction Status Date / Time grape Allergy Intermediate swelling Verified 03/07/25 09:28 Exam Const: Orientation/consciousness: patient oriented x3 Other: Well-developed, well-nourished female in no acute distress. Neck: Thyroid: thyroid normal Lymphatic: no lymphadenopathy noted (in neck, axilla or inguinal nodes) Resp: Effort & Inspection: normal respiratory effort Auscultation: clear to auscultation bilaterally Cardio: Rate: regular rate Rhythm: regular rhythm Heart sounds: S1 normal heart sound present and S2 normal heart sound present GI: Other: ABD: Soft, nontender, nondistended. No guarding or rebound tenderness. No hepatosplenomegaly. Back/Spine/Pelvis: Back: no CVA tenderness Skin: General skin exam: normal color and no rashes or lesions noted Neuro: General: patient oriented x3 Extrem: Other: Extremities: nontender with no edema Psych: Mental Status: mental status grossly normal Affect: normal affect Assessment and Plan Assessment and plan (1) SAB (spontaneous ): Code(s): O03.9 - Complete or unspecified spontaneous without complication Status: Acute Assessment and Plan: A: Missed SAB. P: I offered dilation and suction curettage. She understands risks of surgery to include risks of anesthesia, risks of pain, infection, bleeding, blood products, thromboembolic phenomena and damage to adjacent structures such as bowel, bladder, ureters, blood vessels and nerves. She understands all these risks and elects to proceed with surgery.
[2025-03-10 12:15] VITALS: BP 167/97; PULSE 68; TEMP 36.8; O2SAT 97
[2025-03-10] MEDS: ACETAMINOPHEN 500 MG TABLET 1000 MG PO (12:59)
[2025-03-10] MEDS: LACTATED RINGERS 1,000 ML 30 ML IV CONT (13:00)
[2025-03-10 13:05] VITALS: BMI 39.6
--- NOTE | 2025-03-10 13:31 | P.PNAN_ITS ---
Anes - Initial Pre Proc Eval Procedure: Operation Date: 03/10/25 14:00 Proposed Procedures p Suction Dilation and Curettage - Jered Woodard MD Date/Time: 03/10/25 13:31 Surgeon: Jered Woodard MD Pre Op Diagnosis: Missed AB Patient Data Age: 40 Gender: F Height: 1.6 m Weight: 101.7 kg Last Vital Signs Temp 36.8 C 03/10/25 12:15 Pulse 68 03/10/25 12:15 BP 167/97 H 03/10/25 12:15 Pulse Ox 97 03/10/25 12:15 O2 Del Method Room Air 03/10/25 12:15 Allergies Allergy/AdvReac Type Severity Reaction Status Date / Time grape Allergy Intermediate swelling, Verified 03/10/25 13:00 throat closing Home Medications ?Medication ?Instructions ?Recorded ?Confirmed ?Type metoprolol succinate 25 mg 12.5 mg PO DAILY 05/21/21 1 05/06/24 History tablet,extended release 24 hr amlodipine 5 mg tablet 5 mg PO DAILY 03/05/2503/05 History Patient hx anesthesia problems: none Family hx anesthesia problems: none Results Review: All pre-operative results and documents have been reviewed as part of the pre- operative evaluation. [facility] Past Medical History Medical History (Updated 03/10/25 @ 13:31 by Fito Wood MD) SAB (spontaneous ) Hypertension Surgical History Surgical History Hx laparoscopic cholecystectomy Social History Social History Smoking status: Never smoker Living arrangements: with family Anes - Eval Final PreProcedure Day of Procedure 03/10/25 13:31 Patient weight: obese Heart: regular rate and rhythm Lungs: clear to auscultation Airway: Mallampati scale class II Neurological: alert and oriented Last oral intake: >/= 8 hours ASA classification: III Emergent: no Anesthetic plan: proceed Anesthesia type and monitoring: general GIVS and standard monitoring Results Review: All pre-operative results and documents have been reviewed as part of the pre- operative evaluation. Informed Consent: The patient's anesthetic plan and its attendant risks and benefits were discussed with the patient/family/POA. Questions were solicited and answers provided to the satisfaction of the patient/family/POA.
--- NOTE | 2025-03-10 13:39 | WPDHPUPDATE1 ---
History and Physical Update Update Date/Time: 03/10/25 13:39 History and Physical has been reviewed, including an updated exam of the patient. There are NO changes in the patient's condition. Risks, benefits, and alternatives have been discussed and questions answered. Patient agrees to proceed with procedure.
[2025-03-10] MEDS: LIDOCAINE 1% LOCAL INJ 10 ML VIAL 20 ML INFILTRATE (15:03)
--- NOTE | 2025-03-10 15:07 | S_PTH ---
PATIENT: Erinn Miramontes LOC: [facility] U#:[id number] AGE/SX: 40/F ROOM: RE03/10/[address]: Jered Woodard MD : 1985 BED: DIS: 03/10/2025 SPEC #: [id number] RECD: 03/11/25 08:10 STATUS: SIMEON REBoo #: [id number] PAPITO: 03/10/25 15:[address]: Jered Woodard DEPT: [facility] [place] Surgical RECD BY: Amelie Welch MLT, ([facility]) ENTERED: 03/11/25 08:10 SP TYPE: Surgical OTHR DR: Mayda Chauhan, DEVELOPING MACHINE OPERATOR Tissues: A - Products of Conception Procedures: Hematoxylin and Eosin Stain Gross and Microscopic Level 4
--- NOTE | 2025-03-10 15:12 | W.PM.PROC2 ---
Procedure Note - Detailed Date of Procedure 03/10/25 Pre-op Diagnosis Missed SAB Post-op Diagnosis Same Procedure Performed Dilation and suction curettage Surgeon Jered Woodard MD Anesthesia MAC and Local (1% lidocaine) Findings Products of conception Description of Procedure The patient was taken to the operating room where she was prepared and draped in the usual sterile fashion in the dorsal lithotomy position. The bladder was drained with a red rubber catheter. A sterile speculum was placed into the vagina. The anterior lip of the cervix was grasped with a single-tooth tenaculum. Ten mL of 1% lidocaine was administered in a paracervical block. The cervix was gently dilated using Hegar dilators until an 8mm dilator could be passed. The 8mm curved tip suction curette was advanced. Suction curettage was performed and products of conception were aspirated. Sharp curettage was then performed until a good uterine cry was noted. A final pass with the suction curette was made. The tenaculum was removed. Hemostasis was excellent. Sponge, lap, needle and instrument counts were correct. The patient was taken to the recovery room in stable condition. I was present and scrubbed for the entire procedure. Implants None Estimated Blood Loss 100 Drains No Packing No Pathology Yes (Endometrial curettings) Complications None Condition Stable Disposition PACU [facility] Billing Surgery - Charge Forward: Surgery Billing
[2025-03-10 15:14] VITALS: BP 141/82; PULSE 99; O2SAT 96
[2025-03-10 15:30] VITALS: BP 137/81; PULSE 90; O2SAT 97
[2025-03-10 16:00] VITALS: BP 150/96; PULSE 59
[2025-03-10 16:30] VITALS: BP 143/81; PULSE 59
== END 2025-03-10 16:50 | disposition home or self-care (01) ==
PROVIDERS: Visit Provider Obstetrics & Gynecology
PROC: (CPT 59820; principal; 2025-03-10 14:00)
DX: O02.1 Missed abortion (principal)
CPT/HCPCS: 59820; 88305; A9270; J2003; J2250; J2590; J2704; J3010; J7120